=== PATIENT | female | born 1955 | race Caucasian/White ===

== ENCOUNTER 2020-10-17 16:19 | Outpatient (REF) | payer OTHER, SELFPAY ==
[2020-10-17 18:02] LABS: Glucose Urine UA NEG (NEG); Leukocyte Esterase Urine 1+ (NEG); Nitrite Urine NEG (NEG); UACC Culture Trigger YES; Urine Blood 2+ (NEG); Urine Ketones NEG (NEG); Urine Protein NEG (NEG-TRACE)
[2020-10-17 18:12] LABS: Appearance Urine CLEAR; Color Urine STRAW
[2020-10-17 19:04] LABS: Bacteria Urine TRACE /LPF; Squamous Epithelial Cell Urine 1+ /LPF
== END 2020-10-17 16:20 | disposition home or self-care (01) ==
LOC: HO.LAB 16:19
PROVIDERS: PCP Internal Medicine; Visit Provider Internal Medicine
DX: R30.0 Dysuria (principal)
CPT/HCPCS: 81001; 81003; 87086

== ENCOUNTER 2021-02-21 09:02 | Outpatient (REF) | payer OTHER, SELFPAY ==
[2021-02-21 09:23] LABS: MANUAL DIFF FLAG NO
[2021-02-21 10:19] LABS: Basophils Absolute Auto 0.1 X10*3/uL (0.0-0.2); Basophils Percent Auto 0.7 % (0-2); Eosinophils Absolute Auto 0.2 X10*3/uL (0.0-0.4); Eosinophils Percent Auto 2.8 % (0-4); Hematocrit 44.7 % (37.0-47.0); Hemoglobin 14.7 g/dl (12.0-16.0); Imm Gran Abs Auto 0.03 X10*3/uL (0.00-0.03); Imm Gran Pct Auto 0.4 % (0.0-0.4); Lymphocytes Absolute Auto 2.4 X10*3/uL (1.2-4.9); Lymphocytes Percent Auto 31.7 % (20-40); Mean Corpuscular HGB Conc 32.9 g/dl (31.0-35.0); Mean Corpuscular Hemoglobin 29.8 pg (27.0-33.0); Mean Corpuscular Volume 90.7 fL (80.0-98.0); Mean Platelet Volume 9.7 fL (9.4-12.3); Monocytes Absolute Auto 0.6 X10*3/uL (0.1-1.2); Monocytes Percent Auto 7.8 % (2-11); Neutrophils Absolute Auto 4.2 x10*3/uL (2.0-8.3); Neutrophils Percent Auto 56.6 % (45-73); Platelet Count 288 X10*3/uL (160-400); Red Blood Count 4.93 X10*6/uL (4.20-5.50); Red Cell Distribution Width 13.2 % (11.0-16.0); White Blood Count 7.5 X10*3/uL (4.8-10.8)
[2021-02-21 10:28] LABS: Estimated Average Glucose 143 mg/dL; Hemoglobin A1c % 6.6 %
[2021-02-21 11:02] LABS: Alanine Aminotransferase 19 U/L (0-31); Albumin Level 4.2 g/dL (3.5-5.0); Alkaline Phosphatase 134 U/L (39-117); Anion Gap 11 (12-20); Aspartate Amino Transferase 16 U/L (5-31); Bilirubin Total 0.7 mg/dL (0.0-1.0); Blood Urea Nitrogen 11 mg/dL (9-16); Carbon Dioxide 28 mmol/L (22-29); Chloride 106 mmol/L (96-108); Cholesterol 253 mg/dL; Estimated Glomerular Filt Rate > 60; Glucose Random 139 mg/dL (60-115); HDL Cholesterol 36 mg/dL; LDL Cholesterol Calculated 164 mg/dl; Potassium 4.6 mmol/L (3.3-5.1); Sodium 140 mmol/L (135-145); Total Protein 6.5 g/dL (6.5-8.0); Triglycerides 267 mg/dL
[2021-02-21 11:04] LABS: Creatinine Urine 199.46 mg/dL; Microalbum/Creatinine Ratio Ur 68.1 ug/mg cr
[2021-02-21 11:06] LABS: Free T4 (Free Thyroxine) 1.07 ng/dL (0.71-1.85); Thyroid Stimulating Hormone 2.07 uIU/mL (0.32-4.0)
[2021-02-21 11:43] LABS: Folate 11.4 ng/mL (> or = 4.0); Vitamin B12 218 pg/mL (200-900)
== END 2021-02-21 09:03 | disposition home or self-care (01) ==
LOC: HO.LAB 09:02
PROVIDERS: PCP Internal Medicine; Visit Provider Internal Medicine
DX: E78.00 Pure hypercholesterolemia, unspecified (principal); E03.9 Hypothyroidism, unspecified; E11.65 Type 2 diabetes mellitus with hyperglycemia
CPT/HCPCS: 36415; 80053; 80061; 82043; 82306; 82607; 82746; 83036; 84439; 84443; 85025

== ENCOUNTER 2021-04-04 08:38 | Outpatient (REF) | payer OTHER, SELFPAY ==
--- NOTE | ~2021-04-04 | MM_ITS ---
EXAMINATION: BONE DENSITOMETRY CLINICAL INDICATION: Osteopenia. COMPARISON: Baseline BD dated 03/08/2009. TECHNIQUE: Using a [employer] DXA System (software version: 13.1) manufactured by [email or web address], dual-energy x-ray absorptiometry was performed of the lumbar spine and left hip. The images are of good technical quality. Summary results are attached. FINDINGS: AP SPINE L1-L4: Current: BMD 0.847 g/cm2, Z-score -2.2, T-score -2.8, osteoporosis, 9.8% decrease from baseline (<5% change is not significant). Baseline: BMD 0.939 g/cm2. LEFT FEMUR, NECK: Current: BMD 0.637 g/cm2, Z-score -2.1, T-score -2.9, osteoporosis. Baseline: BMD 0.765 g/cm2. LEFT FEMUR, TOTAL: Current: BMD 0.728 g/cm2, Z-score -1.8, T-score -2.2, osteopenia, 15.1% decrease from baseline (<5% change is not significant). Baseline: BMD 0.857 g/cm2. IDENTIFIED RISK FACTORS: Menopause, right oophorectomy. HISTORY OF FRACTURE: None listed. MEDICATIONS: Vitamin D. MM/XR DEXA axial skeleton IMPRESSION: 1. DIAGNOSIS: Osteoporosis based on the lowest T-score value of -2.9 in the femoral neck applying World Health Organization criteria. 2. 10 10-YEAR FRACTURE RISK PREDICTION, FRAX: According to the guidelines, FRAX calculation should only be performed on patients in the osteopenia bone density category. 3. Treatment Recommendations: NOF guidelines recommend consideration for treatment in postmenopausal women and men age 50 and older presenting with the following: -A hip or vertebral (clinical or morphometric) fracture. -T-score less than or equal to -2.5 at the femoral neck or spine after appropriate evaluation to exclude secondary causes. -Low bone mass at the hip or spine and a 10-year fracture probability by FRAX of greater than or equal to 3% for hip fracture or greater than or equal to 20% for major osteoporotic fracture based on the [place] adapted WHO algorithm. 4. Other Recommendations: All treatment decisions require clinical judgment and consideration of individual patient factors, including patient preferences, comorbidities, previous drug use, risk factors not captured in the FRAX model (e.g. frailty, falls, vitamin D deficiency, increased bone turnover, interval significant decline in bone density) and possible under or overestimation of fracture risk by FRAX. Additional medical evaluation for secondary cause of low bone mineral density may be appropriate. FUTURE SCAN RECOMMENDATION: People with diagnosed cases of osteoporosis or at high risk for fracture should have regular bone mineral density tests. For patients eligible for Medicare, routine testing is allowed once every 2 years. The testing frequency can be increased to one year for patients who have rapidly progressing disease, those who are receiving or discontinuing medical therapy to restore bone mass, or have additional risk factors.
--- NOTE | ~2021-04-04 | MM_ITS ---
EXAMINATION: MM SCREENING DIGITAL BREAST TOMOSYNTHESIS, BILATERAL CLINICAL INFORMATION: Screening. Asymptomatic. The lifetime risk of breast cancer based on the Tyrer-Cuzick Model is 6%. COMPARISON: Mammography: 11/06/2018, 10/21/2017, 10/07/2016 TECHNIQUE: Digital breast tomosynthesis is performed in both the craniocaudal and mediolateral oblique views along with computer-aided detection (CAD). Synthesized 2D images are generated from the tomosynthesis. Additional bilateral MLO views are provided. FINDINGS: There are scattered areas of fibroglandular density (ACR BI-RADS breast composition Category b). There are no significant masses, abnormal calcifications, or other abnormalities. Scattered bilateral nodularity is similar to prior study. There is no developing density or interval architectural abnormality. The left breast again shows punctate calcifications central upper breast similar in number and distribution to prior exams. The axilla and skin contours are unremarkable. MM/MM tomosynthesis screening BI IMPRESSION: There are no significant changes from prior exams. ASSESSMENT: BI-RADS 2: Benign RECOMMENDATION: Routine annual mammography screening. This patient's information was entered into a reminder system with a target due date for their next mammogram.
== END 2021-04-04 08:39 | disposition home or self-care (01) ==
LOC: HO.MAMMO 08:38
PROVIDERS: PCP Internal Medicine; Visit Provider Internal Medicine
DX: Z12.31 Encounter for screening mammogram for malignant neoplasm of breast (principal); Z13.820 Encounter for screening for osteoporosis; M81.0 Age-related osteoporosis without current pathological fracture; M85.88 Other specified disorders of bone density and structure, other site; Z78.0 Asymptomatic menopausal state; Z79.899 Other long term (current) drug therapy
CPT/HCPCS: 77063; 77067; 77080

== ENCOUNTER 2021-07-02 09:55 | Outpatient (REF) | payer OTHER, SELFPAY ==
[2021-07-02 10:12] VITALS: BP 161/71; PULSE 88; RESP 20; TEMP 36.6; O2SAT 97
[2021-07-02 10:13] VITALS: BMI 40.2
== END 2021-07-02 09:56 | disposition home or self-care (01) ==
LOC: HO.MS 09:55
PROVIDERS: PCP Internal Medicine; Visit Provider Ophthalmology
PROC: (CPT 66821; principal; 2021-07-02 11:10)
DX: H26.492 Other secondary cataract, left eye (principal)
CPT/HCPCS: 66821

== ENCOUNTER 2021-09-18 07:58 | Outpatient (REF) | payer OTHER, SELFPAY ==
[2021-09-18 09:10] LABS: Estimated Average Glucose 192 mg/dL; Hemoglobin A1c % 8.3 %
[2021-09-18 09:22] LABS: Alanine Aminotransferase 13 U/L (0-31); Albumin Level 4.1 g/dL (3.5-5.0); Alkaline Phosphatase 147 U/L (39-117); Anion Gap 9 (12-20); Aspartate Amino Transferase 12 U/L (5-31); Bilirubin Total 0.8 mg/dL (0.0-1.0); Blood Urea Nitrogen 9 mg/dL (9-16); Calcium 9.3 mg/dL (8.4-10.2); Carbon Dioxide 28 mmol/L (22-29); Chloride 107 mmol/L (96-108); Cholesterol 164 mg/dL; Estimated Glomerular Filt Rate > 60; Glucose Random 215 mg/dL (60-115); HDL Cholesterol 34 mg/dL; LDL Cholesterol Calculated 87 mg/dl; Potassium 4.4 mmol/L (3.3-5.1); Sodium 140 mmol/L (135-145); Total Protein 6.2 g/dL (6.5-8.0); Triglycerides 216 mg/dL
[2021-09-18 10:30] LABS: Creatinine Urine 189.25 mg/dL
== END 2021-09-18 07:59 | disposition home or self-care (01) ==
LOC: HO.LAB 07:58
PROVIDERS: PCP Internal Medicine; Visit Provider Internal Medicine
DX: E11.65 Type 2 diabetes mellitus with hyperglycemia (principal); E78.00 Pure hypercholesterolemia, unspecified
CPT/HCPCS: 36415; 80053; 80061; 83036

== ENCOUNTER 2022-04-08 09:06 | Outpatient (REF) | payer OTHER, SELFPAY ==
--- NOTE | ~2022-04-08 | MM_ITS ---
EXAMINATION: MM SCREENING DIGITAL BREAST TOMOSYNTHESIS, BILATERAL CLINICAL INFORMATION: Screening. Asymptomatic. The lifetime risk of breast cancer based on the Tyrer-Cuzick Model is 6%. COMPARISON: Mammography: 04/04/2021, 11/06/2018, 10/21/2017, 10/07/2016 TECHNIQUE: Digital breast tomosynthesis is performed in both the craniocaudal and mediolateral oblique views along with computer-aided detection (CAD). Synthesized 2D images are generated from the tomosynthesis. FINDINGS: There are scattered areas of fibroglandular density (ACR BI-RADS breast composition Category b). No interval mass or architectural abnormality or developing density. Parenchymal pattern is similar to prior studies. There is small stable circumscribed nodule anterior central right breast. The punctate calcifications central and upper outer left breast similar in number and distribution to prior studies. The axilla and skin contours are unremarkable. MM/MM tomosynthesis screening BI IMPRESSION: No mammographic evidence of malignancy. ASSESSMENT: BI-RADS 2: Benign RECOMMENDATION: Routine annual mammography screening. This patient's information was entered into a reminder system with a target due date for their next mammogram.
== END 2022-04-08 09:07 | disposition home or self-care (01) ==
LOC: HO.MAMMO 09:06
PROVIDERS: PCP Internal Medicine; Visit Provider Internal Medicine
DX: Z12.31 Encounter for screening mammogram for malignant neoplasm of breast (principal)
CPT/HCPCS: 77063; 77067

== ENCOUNTER 2022-05-16 08:23 | Outpatient (REF) | payer OTHER, SELFPAY ==
[2022-05-16 09:37] LABS: Creatinine Urine 144.85 mg/dL; Microalbum/Creatinine Ratio Ur 7.5 ug/mg cr
[2022-05-16 09:42] LABS: Alanine Aminotransferase 16 U/L (0-31); Albumin Level 4.3 g/dL (3.5-5.0); Alkaline Phosphatase 139 U/L (39-117); Anion Gap 14 (12-20); Aspartate Amino Transferase 15 U/L (5-31); Blood Urea Nitrogen 12 mg/dL (9-16); Calcium 9.5 mg/dL (8.4-10.2); Carbon Dioxide 28 mmol/L (22-29); Chloride 106 mmol/L (96-108); Cholesterol 173 mg/dL; Estimated Glomerular Filt Rate > 60; Glucose Fasting 186 mg/dL (60-99); HDL Cholesterol 39 mg/dL; LDL Cholesterol Calculated 92 mg/dl; Potassium 4.7 mmol/L (3.3-5.1); Sodium 143 mmol/L (135-145); Total Protein 6.2 g/dL (6.5-8.0); Triglycerides 212 mg/dL
[2022-05-16 09:59] LABS: TSH reflex Free T4 3.16 uIU/mL (0.32-4.0); Vitamin D 25-OH Total 21.5 ng/mL (>30)
== END 2022-05-16 08:24 | disposition home or self-care (01) ==
LOC: HO.LAB 08:23
PROVIDERS: PCP Internal Medicine; Visit Provider Nurse Practitioner Family
DX: E11.65 Type 2 diabetes mellitus with hyperglycemia (principal); E03.9 Hypothyroidism, unspecified; E78.00 Pure hypercholesterolemia, unspecified; E55.9 Vitamin D deficiency, unspecified
CPT/HCPCS: 36415; 80053; 80061; 82043; 82306; 84443

== ENCOUNTER 2022-10-25 15:37 | Outpatient (AMB) | payer OTHER, SELFPAY ==
--- NOTE | 2022-10-25 15:42 | MHC.OFFVIS ---
Intake Vital Signs 10/25/22 15:44 Height 5 ft Weight 207 lb BMI 40.4 BP 158/79 H Blood Pressure Location Lt brachial Position Sitting Pulse 80 Intake Visit Reasons: Gastroesophageal reflux disease (GERD) Intake Note: Nora presents in office as a new.patient for a GERD. PT CC: pt reports having GERD, Bloating , abdominal pain , trouble swallowing food and liquids pt denies any other GI Issues Rvda Master Certified Rv Technician Required: No Accompanied by: Daughter Allergies ciprofloxacin [From CIPRO] Allergy (Severe, Verified 10/25/22 15:43) SWELLING Penicillins [PENICILLINS] Allergy (Severe, Verified 10/25/22 15:43) SWELLING latex [LATEX] Allergy (Intermediate, Verified 10/25/22 15:43) RASH simvastatin [SIMVASTATIN] Allergy (Intermediate, Verified 10/25/22 15:43) HEADACHE aspirin Allergy (Unknown, Verified 10/25/22 15:43) 'tastes blood metformin Allergy (Unknown, Verified 10/25/22 15:43) diarrhea penicillin V Allergy (Unknown, Verified 10/25/22 15:43) swelling pravastatin [Pravachol] Allergy (Unknown, Verified 10/25/22 15:43) Unknown tacrolimus Allergy (Unknown, Verified 10/25/22 15:43) Rash atorvastatin [From LIPITOR] Adverse Reaction (Intermediate, Verified 10/25/22 15:43) HEADACHE HPI Gastroesophageal reflux disease (GERD) HPI Details 66-year-old female with past medical history of obesity, GERD, osteoporosis, diabetic neuropathy, eczema, bladder tumor, diabetes, pulmonary nodule, hypercholesteremia, COPD, hypothyroidism is here today for initial consultation. Patient is here reporting multiple GI complaints. Patient reports to have postprandial dyspepsia with occasional dysphagia without odynophagia. Patient reports dysphagia with solids and liquids. Patient denies any nausea or vomiting. Patient reports postprandial abdominal bloating. Patient denies diarrhea, constipation. Patient denies melena, hematochezia, unintentional weight loss or ribbon like stools. Patient also reports to have frequent shortness of breath with minimal exertion. Denies any chest pain. Denies syncope, presyncope. [facility] Medical History Carpal tunnel syndrome COPD (chronic obstructive pulmonary disease) Hypercholesterolemia Hypothyroid Obesity (BMI 30-39.9) Obstruction of kidney Obstructive sleep apnea Osteopenia Pulmonary nodule Renal calculus Type 2 diabetes mellitus with hyperglycemia Surgical History History of bladder surgery History of cataract surgery History of right oophorectomy History of tonsillectomy History of tubal ligation S/P cystoscopy with ureteral stent placement Family History Father CVD (cardiovascular disease) Mother Diabetes Hypertension Heart failure Social History Housing: Apartment Alcohol intake: never Patient Tobacco Use Status: Former Tobacco user Tobacco use type: Cigarette e-Cigarette/Vaping Use: Never Used Second Hand Smoke Exposure: No Current occupational status: disabled Cognitive needs: No Hearing needs: No Vision needs: No Review of Systems Const Denies weight gain and Denies weight loss ENT Reports no additional complaints, Reports dysphagia and Denies odynophagia Card Reports no additional complaints Resp Reports no additional complaints GI Denies abdominal pain, Denies belching, Denies melena, Reports bloating, Denies change in bowel habits, Reports dysphagia, Denies excessive flatus, Reports dyspepsia, Reports heartburn, Denies diarrhea, Denies loose stools, Denies nausea, Denies odynophagia and Denies vomiting Reports no additional complaints Musc Reports no additional complaints Neuro Reports no additional complaints Psych Reports no additional complaints Endo Reports no additional complaints Physical Exam Vital Signs: Last Vital Signs Pulse 80 10/25/22 15:44 BP 158/79 H 10/25/22 15:44 BMI result Body Mass Index 40.4 Const General: healthy appearing, no acute distress and well developed Nutritional Appearance: obese Orientation/consciousness: patient oriented x3 HEENT Head: Yes normal to inspection, Yes normocephalic and Yes atraumatic Face and sinus: Yes normal facial exam Mouth: Normal oral and palatal mucosa present Throat: Yes posterior oropharynx normal, Yes tonsils normal and Yes uvula midline Eyes General: appearance normal, both eyes and all related structures Neck Neck: Yes normal visual inspection, Yes full ROM and Yes trachea midline Thyroid: Thyroid normal Resp Effort & Inspection: normal respiratory effort, able to speak in complete sentences, no tracheal deviation and symmetric chest movement Auscultation: clear to auscultation bilaterally Cardio Rate: regular rate Heart sounds: S1 normal heart sound present and S2 normal heart sound present GI Inspection: Yes normal to inspection, No distended and Yes obesity Palpation (GI): Soft to palpation, not firm, nontender and No hepatosplenomegaly present Auscultation: normal bowel sounds General: Yes no CVA tenderness Back/Spine/Pelvis Back: no CVA tenderness Skin General skin exam: elasticity normal, turgor normal and dry skin Neuro General: patient oriented x3 Psych Appearance: grossly normal Mental Status: mental status grossly normal Speech and movement: Normal speech and movement present Affect: normal affect Assessment & Plan Assessment & Plan (1) GERD (gastroesophageal reflux disease): Code(s): K21.9 - Gastro-esophageal reflux disease without esophagitis Qualifiers: Esophagitis presence: esophagitis presence not specified Qualified Code(s): K21.9 - Gastro-esophageal reflux disease without esophagitis Plan: Patient will start taking pantoprazole in the morning and famotidine bedtime. Discussed with patient avoiding dietary triggers and late night snacking. Staying upright for minimal 3 hours after meals discussed with patient. (2) Postprandial abdominal bloating: Code(s): R14.0 - Abdominal distension (gaseous) Plan: Occasional postprandial abdominal bloating. Will rule out pancreatic insufficiency. Patient also reports epigastric discomfort postprandially will check for H pylori, lipase, transglutaminase (3) Dysphagia: Code(s): R13.10 - Dysphagia, unspecified Qualifiers: Dysphagia type: unspecified Qualified Code(s): R13.10 - Dysphagia, unspecified Plan: Occasional dysphagia might be related to severe acid reflux. Patient will start taking pantoprazole in the morning and famotidine at bedtime. Discussed with patient avoiding dietary triggers late night snacking. Staying upright for minimal 3 hours after meals discussed with patient. Patient will return to the office in 4 weeks, sooner on as needed basis. Patient is agreeable to this plan and verbalizes understanding of instructions. She was given the opportunity to ask questions and all questions answered. Thank you for allowing me to participate in her care Orders: Orders Pancreatic Elastase-1 10/28/22 R10.9 - Unspecified abdominal pain Vitamin B12 and Folate 10/25/22 R19.7 - Diarrhea, unspecified Vitamin D 25-OH (D2 and D3) 10/25/22 E55.9 - Vitamin D deficiency, unspecified H pylori Ag Stool 10/28/22 K21.9 - Gastro-esophageal reflux disease without esophagitis Lipase 10/25/22 R10.9 - Unspecified abdominal pain TSH reflex Free T4 10/25/22 K59.00 - Constipation, unspecified Transglutaminase IgA 10/25/22 R10.9 - Unspecified abdominal pain Transglutaminase Ab IgG 10/25/22 R10.9 - Unspecified abdominal pain Referrals Pulmonary Medicine Referral J44.9 - Chronic obstructive pulmonary disease, unspecified Medications: New famotidine (Pepcid) 20 mg PO BEDTIME 30 tabs 3RF K21.9 - Gastro-esophageal reflux disease without esophagitis pantoprazole 20 mg PO DAILY 30 tabs 3RF Coding Level of Care Code New Pt Level 4 (05381) Diagnoses GERD (gastroesophageal reflux disease) K21.9 Esophagitis presence: esophagitis presence not specified Postprandial abdominal bloating R14.0 Dysphagia R13.10 Dysphagia type: unspecified Time Spent (min) 45 Comment 30 minutes spent with patient and additional 15 minutes spent reviewing her records
[2022-10-25 15:44] VITALS: BP 158/79; PULSE 80; BMI 40.4
== END 2022-10-25 16:20 | disposition home or self-care (01) ==
PROVIDERS: PCP Internal Medicine; Visit Provider Nurse Practitioner Family
DX: K21.9 Gastro-esophageal reflux disease without esophagitis (principal); R14.0 Abdominal distension (gaseous); R13.10 Dysphagia, unspecified
CPT/HCPCS: 99204

== ENCOUNTER 2022-10-25 15:37 | Outpatient (REF) | payer OTHER, SELFPAY ==
[2022-10-25 18:22] LABS: Lipase 21 U/L (8-78)
[2022-10-25 18:32] LABS: TSH reflex Free T4 3.17 uIU/mL (0.32-4.0)
[2022-10-25 18:55] LABS: Folate 12.8 ng/mL (> or = 4.0); Vitamin B12 205 pg/mL (200-900)
[2022-10-28 22:04] LABS: Transglutaminase Ab IgG <1.0 U/mL; Transglutaminase IgA <1.0 U/mL
[2022-10-31 13:09] LABS: Vitamin D 25-OH, D2 <4 ng/mL; Vitamin D 25-OH, D3 23 ng/mL; Vitamin D 25-OH, Total 23 ng/mL (30-100)
== END 2022-10-25 15:38 | disposition home or self-care (01) ==
LOC: HO.LAB 15:37
PROVIDERS: PCP Internal Medicine; Visit Provider Nurse Practitioner Family
DX: K21.9 Gastro-esophageal reflux disease without esophagitis (principal); K59.00 Constipation, unspecified; R10.9 Unspecified abdominal pain; R14.0 Abdominal distension (gaseous); R13.10 Dysphagia, unspecified; E11.40 Type 2 diabetes mellitus with diabetic neuropathy, unspecified; R19.7 Diarrhea, unspecified; E55.9 Vitamin D deficiency, unspecified
CPT/HCPCS: 36415; 82306; 82607; 82746; 83690; 84443; 86364; 99202

== ENCOUNTER 2022-10-28 09:45 | Outpatient (REF) | payer OTHER, SELFPAY ==
[2022-11-05 17:08] LABS: Pancreatic Elastase-1 >500 mcg/g
== END 2022-10-28 09:46 | disposition home or self-care (01) ==
LOC: HO.LNP 09:45
PROVIDERS: Visit Provider Nurse Practitioner Family
DX: R10.9 Unspecified abdominal pain (principal); K21.9 Gastro-esophageal reflux disease without esophagitis
CPT/HCPCS: 82656; 87338

== ENCOUNTER 2022-11-22 09:22 | Outpatient (AMB) | payer OTHER, SELFPAY ==
[2022-11-22 09:26] VITALS: BP 154/75; PULSE 86; BMI 40.0
--- NOTE | 2022-11-22 09:26 | A.OFFVIS_ITS ---
Intake Vital Signs 11/22/22 09:26 Height 5 ft Weight 204 lb 9.423 oz BMI 40.0 BP 154/75 H Blood Pressure Location Lt brachial Position Sitting Pulse 86 Intake Visit Reasons: 4 week follow up Intake Note: Nora presents in office as a est.patient for a f/u for Dysphagia PT CC: pt reports having abdominal pain , diarrhea, bloated pt denies any other GI Issues Heel Slicker Required: No Accompanied by: Self / Same As Patient Allergies ciprofloxacin [From CIPRO] Allergy (Severe, Verified 11/22/22 09:26) SWELLING Penicillins [PENICILLINS] Allergy (Severe, Verified 11/22/22 09:26) SWELLING latex [LATEX] Allergy (Intermediate, Verified 11/22/22 09:) RASH simvastatin [SIMVASTATIN] Allergy (Intermediate, Verified 11/22/22 09:) HEADACHE aspirin Allergy (Unknown, Verified 11/22/22 09:26) 'tastes blood metformin Allergy (Unknown, Verified 11/22/22 09:26) diarrhea penicillin V Allergy (Unknown, Verified 11/22/22 09:26) swelling pravastatin [Pravachol] Allergy (Unknown, Verified 11/22/22 09:26) Unknown tacrolimus Allergy (Unknown, Verified 11/22/22 09:26) Rash atorvastatin [From LIPITOR] Adverse Reaction (Intermediate, Verified 11/22/22 09:) HEADACHE HPI 4 week follow up HPI Details LAST VISIT: GERD (gastroesophageal reflux disease) Patient will start taking pantoprazole in the morning and famotidine bedtime. Discussed with patient avoiding dietary triggers and late night snacking. Staying upright for minimal 3 hours after meals discussed with patient. Postprandial abdominal bloating Occasional postprandial abdominal bloating. Will rule out pancreatic insufficiency. Patient also reports epigastric discomfort postprandially will check for H pylori, lipase, transglutaminase Dysphagia Occasional dysphagia might be related to severe acid reflux. Patient will start taking pantoprazole in the morning and famotidine at bedtime. Discussed with patient avoiding dietary triggers late night snacking. Staying upright for minimal 3 hours after meals discussed with patient. Patient will return to the office in 4 weeks, sooner on as needed basis. Patient is agreeable to this plan and verbalizes understanding of instructions. She was given the opportunity to ask questions and all questions answered. ? Thank you for allowing me to participate in her care Plan Orders Orders Pancreatic Elastase-1 10/28/22 R10.9 Vitamin B12 and Folate 10/25/22 R19.7 Vitamin D 25-OH (D2 and D3) 10/25/22 E55.9 H pylori Ag Stool 10/28/22 K21.9 Lipase 10/25/22 R10.9 TSH reflex Free T4 10/25/22 K59.00 Transglutaminase IgA 10/25/22 R10.9 Transglutaminase Ab IgG 10/25/22 R10.9 Referrals Pulmonary Medicine Referral J44.9 Medications New famotidine (Pepcid) 20 mg PO BEDTIME 30 tabs 3RF K21.9 pantoprazole 20 mg PO DAILY 30 tabs 3RF * TODAY'S VISIT Patient is here today for follow-up. Patient reports that since last time I have seen her she has been doing little better. Patient has less dyspepsia, denies any dysphagia or odynophagia. Patient is taking pantoprazole in the morning and famotidine at bedtime. Patient states the for the most part her symptoms of acid reflux are suppressed with that. However patient does report that she still gets bloated and feels like she does not move her bowels well. Patient reports that she will have postprandial loose stools often, however then no bowel movement for couple days. Patient denies melena, hematochezia, unintentional weight loss or ribbon like stools. Patient had colonoscopy in November of 2017 that showed tubular adenoma. Patient is due to go for colonoscopy and we will try to schedule her soon. Patient reports that she gets very bloated with almost anything that she eats. Patient denies any nausea or vomiting. Patient denies any other GI concerning symptoms [facility] Medical History Carpal tunnel syndrome COPD (chronic obstructive pulmonary disease) Hypercholesterolemia Hypothyroid Obesity (BMI 30-39.9) Obstruction of kidney Obstructive sleep apnea Osteopenia Pulmonary nodule Renal calculus Type 2 diabetes mellitus with hyperglycemia Surgical History History of bladder surgery History of cataract surgery History of right oophorectomy History of tonsillectomy History of tubal ligation S/P cystoscopy with ureteral stent placement Family History Father CVD (cardiovascular disease) Mother Diabetes Hypertension Heart failure Social History Housing: Apartment Alcohol intake: never Patient Tobacco Use Status: Former Tobacco user Tobacco use type: Cigarette e-Cigarette/Vaping Use: Never Used Second Hand Smoke Exposure: No Current occupational status: disabled Cognitive needs: No Hearing needs: No Vision needs: No Review of Systems Const Denies weight gain and Denies weight loss ENT Reports no additional complaints, Denies dysphagia and Denies odynophagia Card Reports no additional complaints Resp Reports no additional complaints GI Denies abdominal pain, Denies belching, Denies melena, Reports bloating, Reports constipation, Denies dysphagia, Denies excessive flatus, Reports dyspepsia (Occasional), Reports heartburn (Improved on medication), Denies diarrhea, Reports loose stools, Denies nausea, Denies odynophagia and Denies vomiting Reports no additional complaints Musc Reports no additional complaints Neuro Reports no additional complaints Psych Reports no additional complaints Endo Reports no additional complaints Physical Exam Vital Signs: Last Vital Signs Pulse 86 11/22/22 09:26 BP 154/75 H 11/22/22 09:26 BMI result Body Mass Index 40.0 Const General: healthy appearing, no acute distress and well developed Nutritional Appearance: obese Orientation/consciousness: patient oriented x3 HEENT Head: Yes normal to inspection, Yes normocephalic and Yes atraumatic Face and sinus: Yes normal facial exam Mouth: Normal oral and palatal mucosa present Throat: Yes posterior oropharynx normal, Yes tonsils normal and Yes uvula midline Eyes General: appearance normal, both eyes and all related structures Neck Neck: Yes normal visual inspection, Yes full ROM and Yes trachea midline Thyroid: Thyroid normal Resp Effort & Inspection: normal respiratory effort, able to speak in complete sentences, no tracheal deviation and symmetric chest movement Auscultation: clear to auscultation bilaterally Cardio Rate: regular rate Heart sounds: S1 normal heart sound present and S2 normal heart sound present GI Inspection: Yes normal to inspection, No distended and Yes obesity Palpation (GI): Soft to palpation, not firm, nontender and No hepatosplenomegaly present Auscultation: normal bowel sounds General: Yes no CVA tenderness Back/Spine/Pelvis Back: no CVA tenderness Skin General skin exam: elasticity normal, turgor normal and dry skin Neuro General: patient oriented x3 Psych Appearance: grossly normal Mental Status: mental status grossly normal Speech and movement: Normal speech and movement present Results Reviewed Results Reviewed: Laboratory Tests 10/25/22 10/25/22 10/25/22 16:37 16:37 16:37 Lipase 21 Vitamin B12 205 25-OH Vitamin D Total 23 L Folate 12.8 TSH 3.17 Stool Pancreat Elastase Tiss Transglutamin IgG Tiss Transglutamin IgA 10/25/22 10/28/22 16:37 06:35 Lipase Vitamin B12 25-OH Vitamin D Total Folate TSH Stool Pancreat Elastase >500 Tiss Transglutamin IgG <1.0 Tiss Transglutamin IgA <1.0 Assessment & Plan Assessment & Plan (1) GERD (gastroesophageal reflux disease): Code(s): K21.9 - Gastro-esophageal reflux disease without esophagitis Qualifiers: Esophagitis presence: esophagitis presence not specified Qualified Code(s): K21.9 - Gastro-esophageal reflux disease without esophagitis Plan: Continue pantoprazole in the morning and famotidine at bedtime. Discussed with patient avoiding dietary triggers and late night snacking. Staying upright for minimum 3 hours after meals discussed with patient patient will be sent for upper endoscopy when she goes for colonoscopy to rule out gastritis, esophagitis, duodenitis, gastric or peptic ulcers, Bolaños's, H pylori. (2) Screen for colon cancer: Code(s): Z12.11 - Encounter for screening for malignant neoplasm of colon Plan: Patient denies any issues with anesthesia in the past. Patient denies any cardiac or respiratory symptoms. History of COPD on corticosteroids. Please book colonoscopy and upper endoscopy for patient. Patient will return in 4 weeks to re-evaluate her. Patient currently is constipated will have patient start Senokot (3) Postprandial abdominal bloating: Code(s): R14.0 - Abdominal distension (gaseous) Plan: Patient reports postprandial abdominal bloating. Most likely related to food that she is eating. Occasional abdominal cramping most likely related to gas trapping. Patient is constipated (4) Constipation: Code(s): K59.00 - Constipation, unspecified Qualifiers: Constipation type: slow transit constipation Qualified Code(s): K59.01 - Slow transit constipation Plan: Patient was encouraged to up increase fluid intake and activity to promote better bowel motility. Patient will take Senokot 2 tablets every evening. Patient will return in 4 weeks, sooner on as needed basis. Patient is agreeable to this plan and verbalizes understanding of instructions. She was given the opportunity to ask questions and all questions answered. Thank you for allowing me to participate in her care Medications: New sennosides (Natural Senna Laxative) 17.2 mg (2 x 8.6 mg) PO BEDTIME 60 tabs 3RF constipation K59.00 - Constipation, unspecified bisacodyl (Dulcolax (bisacodyl)) take 2 tabs at noon the day before your colonoscopy 10 mg (2 x 5 mg) PO ONCE 1 day 2 tabs 0RF Z12.11 - Encounter for screening for malignant neoplasm of colon polyethylene glycol 3350 (Miralax) As directed by gastroenterology department at [facility] 238 grams PO ONCE 238 grams 0RF Z12.11 - Encounter for screening for malignant neoplasm of colon Coding Level of Care Code Est Pt Level 4 (58624) Diagnoses GERD (gastroesophageal reflux disease) K21.9 Esophagitis presence: esophagitis presence not specified Screen for colon cancer Z12.11 Postprandial abdominal bloating R14.0 Constipation K59.01 Constipation type: slow transit constipation Time Spent (min) 35 Comment 20 minutes spent with patient and additional 15 minutes spent reviewing her records
== END 2022-11-22 10:22 | disposition home or self-care (01) ==
PROVIDERS: PCP Internal Medicine; Visit Provider Nurse Practitioner Family
DX: K21.9 Gastro-esophageal reflux disease without esophagitis (principal); Z12.11 Encounter for screening for malignant neoplasm of colon; R14.0 Abdominal distension (gaseous); K59.01 Slow transit constipation
CPT/HCPCS: 99214

== ENCOUNTER → 2022-11-22 09:22 | Outpatient (BNVA) | payer OTHER, SELFPAY | PROVIDERS: PCP Internal Medicine; Visit Provider Nurse Practitioner Family | DX: Z12.11 Encounter for screening for malignant neoplasm of colon (principal); K21.9 Gastro-esophageal reflux disease without esophagitis; K59.01 Slow transit constipation; R14.0 Abdominal distension (gaseous) | CPT/HCPCS: 99212 ==

== ENCOUNTER 2022-11-27 09:36 | Outpatient (AMB) | payer OTHER, SELFPAY ==
[2022-11-27 09:39] VITALS: BP 130/72; PULSE 79; O2SAT 96; BMI 39.6
--- NOTE | 2022-11-27 09:39 | MHC.PC.OV ---
Vital Signs 11/27/22 09:39 Height 5 ft Weight 203 lb BMI 39.6 BP 130/72 Blood Pressure Location Lt brachial Position Sitting Pulse 79 Pulse Source Pulse Oximeter Pulse Oximetry (%) 96 Oxygen Delivery Method Room Air Intake Visit Reasons: 6m F/U Allergies ciprofloxacin [From CIPRO] Allergy (Severe, Verified 11/27/22 09:39) SWELLING Penicillins [PENICILLINS] Allergy (Severe, Verified 11/27/22 09:39) SWELLING latex [LATEX] Allergy (Intermediate, Verified 11/27/22 09:39) RASH simvastatin [SIMVASTATIN] Allergy (Intermediate, Verified 11/27/22 09:39) HEADACHE aspirin Allergy (Unknown, Verified 11/27/22 09:39) 'tastes blood metformin Allergy (Unknown, Verified 11/27/22 09:39) diarrhea penicillin V Allergy (Unknown, Verified 11/27/22 09:39) swelling pravastatin [Pravachol] Allergy (Unknown, Verified 11/27/22 09:39) Unknown tacrolimus Allergy (Unknown, Verified 11/27/22 09:39) Rash atorvastatin [From LIPITOR] Adverse Reaction (Intermediate, Verified 11/27/22 09:39) HEADACHE Medication List - Last Reconciled 11/27/22 by You Gallardo MD [large Depends (pull ups) As directed] albuterol sulfate 90 mcg/actuation (Ventolin HFA) 2 puffs inhalation Q4-6H PRN emgggyc-bearyywbintwb-emauucva 250-250-65 mg (Excedrin Migraine) 1 tab PO Q4-6H PRN bisacodyl (Dulcolax (bisacodyl)) 10 mg (2 x 5 mg) PO ONCE 1 day blood sugar diagnostic (FreeStyle Lite Strips) As directed check the BS QD [BODY WIPES As directed] budesonide-formoterol 80-4.5 mcg/actuation (Symbicort) 1 inh inhalation BID PRN cholecalciferol (vitamin D3) 50 mcg PO DAILY 90 days disposable gloves (Disposable Latex-Free Gloves) large dupilumab (Dupixent) 300 mg subcut Q2W empagliflozin (Jardiance) 10 mg PO DAILY famotidine (Pepcid) 20 mg PO BEDTIME glimepiride 2 mg PO DAILY [incontinence wipes As directed] [Large gloves As directed] levothyroxine 88 mcg PO DAILY loratadine (Allergy Relief (loratadine)) 10 mg PO DAILY multivitamin 1 tab PO DAILY oxybutynin chloride ER 5 mg PO DAILY pantoprazole 20 mg PO DAILY polyethylene glycol 3350 (Miralax) 238 grams PO ONCE rosuvastatin 5 mg PO DAILY sennosides (Natural Senna Laxative) 17.2 mg (2 x 8.6 mg) PO BEDTIME Tobacco use date assessed: 05/23/22 Fall risk assessment: No Falls in past year Last assessed Fall Risk: 11/27/22 Dental Screening Dental Screen Date: 11/27/22 Did you have a dental visit in the last 12 months?: No Did you have a dental problem in the last 6 months where you did not have access to dental care?: No Was dental information given to patient?: No HPI 6m F/U HPI Details 66-year-old obese female with diabetes mellitus hypercholesterolemia COPD hypothyroidism GERD osteoporosis urge incontinence coming in for follow-up. Last seen in May 2022. Colonoscopy having had tubular adenoma in 2017 osteoporosis up-to-date mammograms up-to-date.. Review of the notes has met with the commercial construction estimator for colonoscopy November 2022. Patient [facility] Medical History Carpal tunnel syndrome COPD (chronic obstructive pulmonary disease) Hypercholesterolemia Hypothyroid Obesity (BMI 30-39.9) Obstruction of kidney Obstructive sleep apnea Osteopenia Pulmonary nodule Renal calculus Type 2 diabetes mellitus with hyperglycemia Surgical History History of bladder surgery History of cataract surgery History of right oophorectomy History of tonsillectomy History of tubal ligation S/P cystoscopy with ureteral stent placement Family History Father CVD (cardiovascular disease) Mother Diabetes Hypertension Heart failure Social History Housing: Apartment Alcohol intake: never Patient Tobacco Use Status: Former Tobacco user Tobacco use type: Cigarette e-Cigarette/Vaping Use: Never Used Second Hand Smoke Exposure: No Current occupational status: disabled Cognitive needs: No Hearing needs: No Vision needs: No Questionnaire PHQ-9 Over the last 2 weeks, how often have you been bothered by any of the following problems? 1. Little interest or pleasure in doing things: not at all 2. Feeling down, depressed, or hopeless: not at all 3. Trouble falling or staying asleep, or sleeping too much: not at all 4. Feeling tired or having little energy: not at all 5. Poor appetite or overeating: not at all 6. Feeling bad about yourself - or that you are a failure or have let yourself or your family down: not at all 7. Trouble concentrating on things, such as reading the newspaper or watching television: not at all 8. Moving or speaking so slowly that other people could have noticed. Or the opposite - being so fidgety or restless that you have been moving around a lot more than usual: not at all 9. Thoughts that you would be better off or of hurting yourself in some way: not at all Total score: 0 Depression Screening Interpretation: Negative 64011 - PHQ-9 Billing: Yes Source: Developed by Drs. Jeromy Miller, Kristin Vargas, Chato Wild and colleagues, with an educational angelica from [employer]. Thrive Questionnaire Date Thrive assessed: 05/23/22 AUDIT C Alcohol Use Questionnaire (AUDIT-C) 1. How often do you have a drink containing alcohol?: Monthly or less 2. How many drinks containing alcohol do you have on a typical day when you are drinking?: 1 or 2 3. How often do you have six or more drinks on one occasion?: Never Total Score: 1 Score Reviewed/Action Taken: No NATIVIDAD-7 AMB Questionnaire NATIVIDAD-7 Date NATIVIDAD - 7 assessed: 05/23/22 Source: Developed by Drs. Jeromy Miller, Chato Nagy and colleagues, with an educational angelica from [employer]. Physical exam (Primary Care) Vital Signs: Last Vital Signs Pulse 79 11/27/22 09:39 BP 130/72 11/27/22 09:39 Pulse Ox 96 11/27/22 09:39 Oxygen Delivery Method Room Air 11/27/22 09:39 BMI result Body Mass Index 39.6 Tobacco/Smoking Status: Tobacco use Status Tobacco use date assessed 05/23/22 11/27/22 09:40 Patient Tobacco Use Status Former Tobacco user 11/27/22 09:40 Tobacco use type Cigarette 11/27/22 09:40 e-Cigarette/Vaping Use Never Used 11/27/22 09:40 PHQ-9: PHQ-9 Score PHQ-9: Total score 0 11/27/22 09:51 Depression Screening Interpretation: Negative Thrive Assessment: Date of Thrive Assessment Date Thrive assessed 05/23/22 11/27/22 09:40 Const General: alert; No acute distress Eyes Conjunctivae: conjunctivae normal Resp Auscultation: clear to auscultation bilaterally Cardio Rate: regular rate Rhythm: regular rhythm GI Inspection: Yes normal to inspection Extrem General: Yes normal to inspection and No edema Results AMB Hemoglobin A1c AMB Hemoglobin A1c 6.7 % Last Edit by Sally Franco CMA on 11/27/22 09:52 Results Reviewed Results Reviewed: Laboratory Last Values Hgb A1c (Clinic) 6.7 % (4.0-6.0) H 11/27/22 09:40 Assessment and Plan Assessment & Plan (1) Type 2 diabetes mellitus with hyperglycemia: Comment: Dr. Barfield Code(s): E11.65 - Type 2 diabetes mellitus with hyperglycemia Plan: Decrease the amount of carbohydrate intake, pasta, bread, rice and potatoes are all sugar and that is aside from all the sweet stuff, remember that fruits are good but they are Sweet also. Hemoglobin A1c goal of less than 7.0 patient is presently taking glimepiride 2 mg once a day. DECLIN new med despite high sugars. (2) Hypercholesterolemia: Code(s): E78.00 - Pure hypercholesterolemia, unspecified Plan: Avoid fried foods, chicken skin, eggs, butter margarine, pastries and meat. Be it pork or beef they have a lot of cholesterol LDL goal of less than 100 patient is taking rosuvastatin 5 mg once a day. 04/2022 last blood (3) COPD (chronic obstructive pulmonary disease): Comment: March 2017 PFT Code(s): J44.9 - Chronic obstructive pulmonary disease, unspecified Plan: April last blood work continue with a inhaler albuterol and Symbicort. Scheduled to see the Pulmonary. (4) Obesity (BMI 30-39.9): Code(s): E66.9 - Obesity, unspecified Plan: Diet and exercise (5) Hypothyroid: Code(s): E03.9 - Hypothyroidism, unspecified Plan: Continue with thyroid medication (6) GERD (gastroesophageal reflux disease): Code(s): K21.9 - Gastro-esophageal reflux disease without esophagitis Qualifiers: Esophagitis presence: esophagitis presence not specified Qualified Code(s): K21.9 - Gastro-esophageal reflux disease without esophagitis Plan: Avoid the foods that causes that usually spicy foods, tomato products, juices, coffee, soda and foods that your sensitive to. After eating do not lie down, allow 3-4 hours before in lie down. And keep the head of bed above 30 degrees to avoid the acid from going up. On pantoprazole 20 mg once a day Orders: Orders Vitamin B12 and Folate 4 Months E11.65 - Type 2 diabetes mellitus with hyperglycemia Comprehensive Met. Panel 4 Months E11.65 - Type 2 diabetes mellitus with hyperglycemia Hemoglobin A1c 4 Months E11.65 - Type 2 diabetes mellitus with hyperglycemia Lipid Panel 4 Months E11.65 - Type 2 diabetes mellitus with hyperglycemia, E78.00 - Pure hypercholesterolemia, unspecified Free T4 (Free Thyroxine) 4 Months E11.65 - Type 2 diabetes mellitus with hyperglycemia Thyroid Stimulating Hormone 4 Months E11.65 - Type 2 diabetes mellitus with hyperglycemia Vitamin D 25-OH Total 4 Months E11.65 - Type 2 diabetes mellitus with hyperglycemia Creatinine Urine 4 Months E11.65 - Type 2 diabetes mellitus with hyperglycemia Complete Blood Count Auto Diff 4 Months E11.65 - Type 2 diabetes mellitus with hyperglycemia AMB Hemoglobin A1c Today Z13.9 - Encounter for screening, unspecified Medications: New empagliflozin (Jardiance) 10 mg PO DAILY 30 tabs 4RF E11.65 - Type 2 diabetes mellitus with hyperglycemia Coding Level of Care Code Est Pt Level 4 (78442) Diagnoses Type 2 diabetes mellitus with hyperglycemia E11.65 Hypercholesterolemia E78.00 COPD (chronic obstructive pulmonary disease) J44.9 Obesity (BMI 30-39.9) E66.9 Hypothyroid E03.9 GERD (gastroesophageal reflux disease) K21.9 Esophagitis presence: esophagitis presence not specified
== END 2022-11-27 10:28 | disposition home or self-care (01) ==
PROVIDERS: Visit Provider Internal Medicine
DX: E11.65 Type 2 diabetes mellitus with hyperglycemia (principal); J44.9 Chronic obstructive pulmonary disease, unspecified; Z68.39 Body mass index [BMI] 39.0-39.9, adult; E78.00 Pure hypercholesterolemia, unspecified; E03.9 Hypothyroidism, unspecified; K21.9 Gastro-esophageal reflux disease without esophagitis; E66.9 Obesity, unspecified
CPT/HCPCS: 83036; 99214

== ENCOUNTER 2022-12-20 09:45 | Outpatient (AMB) | payer OTHER, SELFPAY ==
--- NOTE | 2022-12-20 09:57 | MHC.OFFVIS ---
Intake Vital Signs 12/20/22 10:02 Height 5 ft Weight 203 lb BMI 39.6 BP 116/60 Blood Pressure Location Lt brachial Position Sitting Pulse 80 Intake Visit Reasons: 4 week follow up Intake Note: Patient follow up for constipation and pre colonoscopy screening. Patient cc: abdominal bloating, acid reflex with burning sensation, and some constipation, she still have to push a lot for BM and some dyphagia on and off. Building Performance Consultant Required: No Accompanied by: Self / Same As Patient Allergies ciprofloxacin [From CIPRO] Allergy (Severe, Verified 12/20/22 09:56) SWELLING Penicillins [PENICILLINS] Allergy (Severe, Verified 12/20/22 09:56) SWELLING latex [LATEX] Allergy (Intermediate, Verified 12/20/22 09:56) RASH simvastatin [SIMVASTATIN] Allergy (Intermediate, Verified 12/20/22 09:56) HEADACHE aspirin Allergy (Unknown, Verified 12/20/22 09:56) 'tastes blood metformin Allergy (Unknown, Verified 12/20/22 09:56) diarrhea penicillin V Allergy (Unknown, Verified 12/20/22 09:56) swelling pravastatin [Pravachol] Allergy (Unknown, Verified 12/20/22 09:56) Unknown tacrolimus Allergy (Unknown, Verified 12/20/22 09:56) Rash atorvastatin [From LIPITOR] Adverse Reaction (Intermediate, Verified 12/20/22 09:56) HEADACHE HPI 4 week follow up HPI Details LAST VISIT GERD (gastroesophageal reflux disease) Continue pantoprazole in the morning and famotidine at bedtime. Discussed with patient avoiding dietary triggers and late night snacking. Staying upright for minimum 3 hours after meals discussed with patient patient will be sent for upper endoscopy when she goes for colonoscopy to rule out gastritis, esophagitis, duodenitis, gastric or peptic ulcers, Bolaños's, H pylori. Screen for colon cancer Patient denies any issues with anesthesia in the past. Patient denies any cardiac or respiratory symptoms. History of COPD on corticosteroids. Please book colonoscopy and upper endoscopy for patient. Patient will return in 4 weeks to re-evaluate her. Patient currently is constipated will have patient start Senokot Postprandial abdominal bloating Patient reports postprandial abdominal bloating. Most likely related to food that she is eating. Occasional abdominal cramping most likely related to gas trapping. Patient is constipated Constipation Patient was encouraged to up increase fluid intake and activity to promote better bowel motility. Patient will take Senokot 2 tablets every evening. Patient will return in 4 weeks, sooner on as needed basis. Patient is agreeable to this plan and verbalizes understanding of instructions. She was given the opportunity to ask questions and all questions answered. ? TODAY'S VISIT Patient is here today for follow-up. Patient reports that she has started taking Senokot, however she moves her bowels little better, however she continues to feel like she is not emptying her bowels completely. Patient reports that she has to push and is unable to have any normal bowel movement. Patient is also reporting to have occasional acid reflux specially when she is constipated. Patient is taking pantoprazole 20 mg in the morning and famotidine at bedtime. For the most part patient states that it helps, however she continues to occasionally have postprandial epigastric discomfort with burning as well as postprandial abdominal bloating. No change from previous assessment. Patient is ready to go for colonoscopy just needs to move her bowels better. [facility] Medical History (Updated 12/20/22 @ 19:45 by Dina Aviles, [facility]) Diarrhea Osteopenia Obstruction of kidney Obstructive sleep apnea Renal calculus Type 2 diabetes mellitus with hyperglycemia Pulmonary nodule Hypercholesterolemia COPD (chronic obstructive pulmonary disease) Obesity (BMI 30-39.9) Carpal tunnel syndrome Hypothyroid Surgical History S/P cystoscopy with ureteral stent placement History of cataract surgery History of bladder surgery History of tonsillectomy History of tubal ligation History of right oophorectomy Family History Father CVD (cardiovascular disease) Mother Diabetes Hypertension Heart failure Social History Housing: Apartment Alcohol intake: never Patient Tobacco Use Status: Former Tobacco user Tobacco use type: Cigarette e-Cigarette/Vaping Use: Never Used Second Hand Smoke Exposure: No Current occupational status: disabled Cognitive needs: No Hearing needs: No Vision needs: No Review of Systems Const Denies weight gain and Denies weight loss ENT Reports no additional complaints, Denies dysphagia and Denies odynophagia Card Reports no additional complaints Resp Reports no additional complaints GI Denies abdominal pain, Denies belching, Denies melena, Denies bloating, Denies change in bowel habits, Reports constipation, Denies dysphagia, Denies excessive flatus, Denies dyspepsia, Reports heartburn, Denies diarrhea, Denies loose stools, Denies nausea, Denies odynophagia and Denies vomiting Reports no additional complaints Musc Reports no additional complaints Neuro Reports no additional complaints Psych Reports no additional complaints Endo Reports no additional complaints Physical Exam Vital Signs: Last Vital Signs Pulse 80 12/20/22 10:02 BP 116/60 12/20/22 10:02 BMI result Body Mass Index 39.6 Const General: healthy appearing, no acute distress and well developed Nutritional Appearance: obese Orientation/consciousness: patient oriented x3 HEENT Head: Yes normal to inspection, Yes normocephalic and Yes atraumatic Face and sinus: Yes normal facial exam Mouth: Normal oral and palatal mucosa present Throat: Yes posterior oropharynx normal, Yes tonsils normal and Yes uvula midline Eyes General: appearance normal, both eyes and all related structures Neck Neck: Yes normal visual inspection, Yes full ROM and Yes trachea midline Thyroid: Thyroid normal Resp Effort & Inspection: normal respiratory effort, able to speak in complete sentences, no tracheal deviation and symmetric chest movement Auscultation: clear to auscultation bilaterally Cardio Rate: regular rate Heart sounds: S1 normal heart sound present and S2 normal heart sound present GI Inspection: Yes normal to inspection, No distended and Yes obesity Palpation (GI): Soft to palpation, not firm, nontender and No hepatosplenomegaly present Auscultation: normal bowel sounds General: Yes no CVA tenderness Back/Spine/Pelvis Back: no CVA tenderness Skin General skin exam: elasticity normal, turgor normal and dry skin Neuro General: patient oriented x3 Psych Appearance: grossly normal Mental Status: mental status grossly normal Speech and movement: Normal speech and movement present Assessment & Plan Assessment & Plan (1) GERD (gastroesophageal reflux disease): Code(s): K21.9 - Gastro-esophageal reflux disease without esophagitis Qualifiers: Esophagitis presence: esophagitis presence not specified Qualified Code(s): K21.9 - Gastro-esophageal reflux disease without esophagitis Plan: Continue pantoprazole in the morning and famotidine at bedtime. Patient was encouraged to avoid dietary triggers in late night snacking. Staying upright for minimum 3 hours after meals discussed with patient. (2) Screen for colon cancer: Code(s): Z12.11 - Encounter for screening for malignant neoplasm of colon Plan: Discussed with patient clear liquid diet day before the procedure. The importance of good bowel prep discussed with patient. Patient is will start Dulcolax tablets every day as well as MiraLax in the morning. No changes since last visit. Patient denies any cardiac or respiratory symptoms. (3) Postprandial abdominal bloating: Code(s): R14.0 - Abdominal distension (gaseous) Plan: Occasional postprandial abdominal bloating. Patient feels like it is related to her being constipated. Discussed with patient will FODMAP diet. Went over food recommended as well as food to avoid. (4) Constipation: Code(s): K59.00 - Constipation, unspecified Qualifiers: Constipation type: slow transit constipation Qualified Code(s): K59.01 - Slow transit constipation Plan: Patient will stop Senokot and start Dulcolax tablets every evening. Patient can also take MiraLax in the morning. I will see her after the procedure, sooner on as needed basis. Patient is agreeable to this plan and verbalizes understanding of instructions. She was given the opportunity to ask questions and all questions answered. Thank you for allowing me to participate in her care Medications: New polyethylene glycol 3350 (Miralax) 17 grams PO DAILY 510 grams 2RF bisacodyl (Dulcolax (bisacodyl)) 10 mg (2 x 5 mg) PO BEDTIME 180 tabs 4RF Discontinued sennosides (Natural Senna Laxative) Discontinued Reason: Doctor's Order 17.2 mg (2 x 8.6 mg) PO BEDTIME 60 tabs 3RF constipation K59.00 - Constipation, unspecified Coding Level of Care Code Est Pt Level 4 (88377) Diagnoses Gastroesophageal reflux disease, unspecified whether esophagitis present K21.9 Esophagitis presence: esophagitis presence not specified Screen for colon cancer Z12.11 Postprandial abdominal bloating R14.0 Slow transit constipation K59.01 Constipation type: slow transit constipation Time Spent (min) 35 Comment 20 minutes spent with patient and additional 15 minutes spent reviewing her records
[2022-12-20 10:02] VITALS: BP 116/60; PULSE 80; BMI 39.6
== END 2022-12-20 10:35 | disposition home or self-care (01) ==
PROVIDERS: PCP Internal Medicine; Visit Provider Nurse Practitioner Family
DX: K21.9 Gastro-esophageal reflux disease without esophagitis (principal); Z12.11 Encounter for screening for malignant neoplasm of colon; R14.0 Abdominal distension (gaseous); K59.01 Slow transit constipation
CPT/HCPCS: 99214

== ENCOUNTER → 2022-12-20 09:45 | Outpatient (BNVA) | payer OTHER, SELFPAY | PROVIDERS: PCP Internal Medicine; Visit Provider Nurse Practitioner Family | DX: Z12.11 Encounter for screening for malignant neoplasm of colon (principal); K21.9 Gastro-esophageal reflux disease without esophagitis; K59.01 Slow transit constipation; R14.0 Abdominal distension (gaseous) | CPT/HCPCS: 99212 ==

== ENCOUNTER 2023-01-16 09:18 | Day surgery (SDC) | payer OTHER, SELFPAY ==
[2023-01-13 16:54] VITALS: BMI 39.6
--- NOTE | 2023-01-15 10:34 | P.CONAN_ITS ---
Documented by User: Eugenia Laureano NP 01/15/23 10:35 HPI - Anesthesia Eval Consult details Narrative: 67yo F for Upper Endoscopy and Colonoscopy [facility] Active Problems Active Problems: All Active Problems (Updated 12/20/22 @ 19:45 by Dina Aviles [facility]) Hip pain (Acute) Low back pain (Acute) Low vitamin D level (Acute) Urge incontinence (Acute) Obesity (Acute) GERD (gastroesophageal reflux disease) (Acute) Osteoporosis (Acute) Diabetic nephropathy (Acute) Breast cancer screening by mammogram (Acute) Renal calculus (Acute) Eczema (Acute) Bladder tumor (Acute) Type 2 diabetes mellitus with hyperglycemia (Acute) Pulmonary nodule (Acute) Hypercholesterolemia (Acute) COPD (chronic obstructive pulmonary disease) (Acute) Obesity (BMI 30-39.9) (Acute) Hypothyroid (Acute) Past Medical History Medical History (Updated 12/20/22 @ 19:45 by Dina Aviles [facility]) Diarrhea Osteopenia Obstruction of kidney Obstructive sleep apnea Renal calculus Type 2 diabetes mellitus with hyperglycemia Pulmonary nodule Hypercholesterolemia COPD (chronic obstructive pulmonary disease) Obesity (BMI 30-39.9) Carpal tunnel syndrome Hypothyroid Family History Family History Father CVD (cardiovascular disease) Mother Diabetes Hypertension Heart failure Surgical History Surgical History S/P cystoscopy with ureteral stent placement History of cataract surgery History of bladder surgery History of tonsillectomy History of tubal ligation History of right oophorectomy Social History Social History Housing: Apartment Alcohol intake: never Patient Tobacco Use Status: Former Tobacco user Tobacco use type: Cigarette e-Cigarette/Vaping Use: Never Used Second Hand Smoke Exposure: No Use of substances other than those prescribed or required for medical reasons: No Are you DNR?: No Advance Directives: No Advance Directives Information Provided: Yes Current occupational status: disabled Cognitive needs: No Hearing needs: No Vision needs: No Meds Allergies Allergy/AdvReac Type Severity Reaction Status Date / Time ciprofloxacin [From CIPRO] Allergy Severe SWELLING Verified 12/20/22 09:56 Penicillins [PENICILLINS] Allergy Severe SWELLING Verified 12/20/22 09:56 latex [LATEX] Allergy Intermediate RASH Verified 12/20/22 09:56 simvastatin [SIMVASTATIN] Allergy Intermediate HEADACHE Verified 12/20/22 09:56 aspirin Allergy Unknown 'tastes Verified 12/20/22 09:56 blood metformin Allergy Unknown diarrhea Verified 12/20/22 09:56 pravastatin [Pravachol] Allergy Unknown Unknown Verified 12/20/22 09:56 tacrolimus Allergy Unknown Rash Verified 12/20/22 09:56 atorvastatin [From LIPITOR] AdvReac Intermediate HEADACHE Verified 12/20/22 09:56 Home Medications Medication Instructions Recorded Confirmed Last Taken Type dupilumab 300 mg/2 mL subcutaneous 300 mg subcut Q2W 02/12/21 11/27/22 Unknown History pen injector (Dupixent) albuterol sulfate 90 mcg/actuation 2 puff inhalation Q4-6H PRN 05/23/22 11/27/22 Unknown History aerosol inhaler (Ventolin HFA) Exam Exam Date and Time: January 15, 2023 1034 Height,Weight and Vital Signs: Height 5 ft Weight 92.079 kg Assessment and Plan Assessment Anesthesia Assessment: Chart Reviewed Documented by User: Tello Diggs MD 01/16/23 10:48 [facility] Past Medical History Medical History (Updated 12/20/22 @ 19:45 by Dina Aviles [facility]-) Diarrhea Osteopenia Obstruction of kidney Obstructive sleep apnea Renal calculus Type 2 diabetes mellitus with hyperglycemia Pulmonary nodule Hypercholesterolemia COPD (chronic obstructive pulmonary disease) Obesity (BMI 30-39.9) Carpal tunnel syndrome Hypothyroid Family History Family History Father CVD (cardiovascular disease) Mother Diabetes Hypertension Heart failure Family history of problems with anesthesia: No Surgical History Surgical History S/P cystoscopy with ureteral stent placement History of cataract surgery History of bladder surgery History of tonsillectomy History of tubal ligation History of right oophorectomy History of Problems with Anesthesia: No Social History Social History Housing: Apartment Alcohol intake: never Patient Tobacco Use Status: Former Tobacco user Tobacco use type: Cigarette e-Cigarette/Vaping Use: Never Used Second Hand Smoke Exposure: No Use of substances other than those prescribed or required for medical reasons: No Are you DNR?: No Advance Directives: No Advance Directives Information Provided: Yes Current occupational status: disabled Cognitive needs: No Hearing needs: No Vision needs: No Meds Allergies Allergy/AdvReac Type Severity Reaction Status Date / Time ciprofloxacin [From CIPRO] Allergy Severe SWELLING Verified 12/20/22 09:56 Penicillins [PENICILLINS] Allergy Severe SWELLING Verified 12/20/22 09:56 latex [LATEX] Allergy Intermediate RASH Verified 12/20/22 09:56 simvastatin [SIMVASTATIN] Allergy Intermediate HEADACHE Verified 12/20/22 09:56 aspirin Allergy Unknown 'tastes Verified 12/20/22 09:56 blood metformin Allergy Unknown diarrhea Verified 12/20/22 09:56 pravastatin [Pravachol] Allergy Unknown Unknown Verified 12/20/22 09:56 tacrolimus Allergy Unknown Rash Verified 12/20/22 09:56 atorvastatin [From LIPITOR] AdvReac Intermediate HEADACHE Verified 12/20/22 09:56 Home Medications Medication Instructions Recorded Confirmed Last Taken Type dupilumab 300 mg/2 mL subcutaneous 300 mg subcut Q2W 02/12/21 11/27/22 Unknown History pen injector (Dupixent) albuterol sulfate 90 mcg/actuation 2 puff inhalation Q4-6H PRN 05/23/22 11/27/22 Unknown History aerosol inhaler (Ventolin HFA) Exam Airway Mallampati Class: II TM Dist: <=3cm Neck ROM: Full Denture: Upper and Lower Heart: ok Lungs: ok Assessment and Plan Assessment Anesthesia Assessment: Anesthesia Plan Discussed Final Anesthetic Review Family History of Problems with Anesthesia: No History of Problems with Anesthesia: No NPO: Yes ASA Class: III Final Preanesthetic Review: No Changes in Pt Med Stat, Meds/Allgs Chart Reviewed, Consent Obtained/Reviewed and Anes Risks/Benef Reviewed Patient Risk: Intermediate Procedure Risk: Intermediate Anesthetic Plan Anesthetic Plan: MAC: and Agree w/ Assess. and Plan Disposition: Standard PACU
[2023-01-16 09:51] VITALS: BP 116/74; PULSE 90; RESP 16; TEMP 37; O2SAT 96
[2023-01-16 10:11] LABS: Glucose, Whole Blood 140 mg/dL (60-115)
--- NOTE | 2023-01-16 10:11 | MHC.SHP ---
Pre-Procedural Eval Section A Date of Service: 01/16/23 The History & Physical has been completed within 30 days and I have reviewed it.: Yes Section B Chief Complaint: gerd,screening Allergies: Allergies Allergy/AdvReac Type Severity Reaction Status Date / Time ciprofloxacin [From CIPRO] Allergy Severe SWELLING Verified 12/20/22 09:56 Penicillins [PENICILLINS] Allergy Severe SWELLING Verified 12/20/22 09:56 latex [LATEX] Allergy Intermediate RASH Verified 12/20/22 09:56 simvastatin [SIMVASTATIN] Allergy Intermediate HEADACHE Verified 12/20/22 09:56 aspirin Allergy Unknown 'tastes Verified 12/20/22 09:56 blood metformin Allergy Unknown diarrhea Verified 12/20/22 09:56 pravastatin [Pravachol] Allergy Unknown Unknown Verified 12/20/22 09:56 tacrolimus Allergy Unknown Rash Verified 12/20/22 09:56 atorvastatin [From LIPITOR] AdvReac Intermediate HEADACHE Verified 12/20/22 09:56 Plan Diagnosis/Plan: Unchanged I have reviewed the history and physical and performed a pertinent physical examination on my patient. No changes have occurred unless specified. Time Spent With Patient Time: Total time managing care of this patient today ____ minutes.
[2023-01-16] MEDS: Lactated Ringers 1,000 ML 100 ML IVCONT (10:20)
--- NOTE | 2023-01-16 11:00 | P.OP_ITS ---
Operative Note Operative Note Date of Service: 01/16/23 Narrative: Procedure:?Esophagogastroduodenoscopy and colonoscopy Endoscopist:?Shruthi Watkins MD Indication:?GERD, screening Anesthesia Provider:?Dr Ortiz Smith Anesthesia Type:?MAC Instrument:?Olympus GIF-H190, PCF-[id number] Colonoscopy Procedure:? The procedure, indications, preparation and potential complications were reviewed with the patient who indicated understanding and gave written informed consent to proceed. A digital rectal exam was performed which was abnormal for ext hemorrhoids.? A distal attachment cap was affixed to the tip of the scope and the colonoscope was then inserted through the anus and advanced through the colon to the cecum at 75 cm and terminal ileum. Appendiceal orifice and ileocecal valve were identified. Mucosa was carefully examined under high definition white light as the instrument was slowly withdrawn in a retrograde panoramic fashion. Retroflexion was performed in rectum. The procedure was not difficult. There were no immediate obvious complications. The quality of the prep was BBPS: 3+2+2 = adequate Withdrawal time: 14 minutes Limitations: No limitation. Findings: Mucosa: Erythema and whitish exudates noted on the ileocecal valve. Cold forceps biopsies were taken. The remaining mucosa was normal to cecum and terminal ileum. Protruding lesions: * A 2 cm subepithelial lesion was noted in ascending colon 3 cm proximal to IC valve. Pillow sign was positive. The lesion was unroofed with a cold snare and cold forceps biopsies were taken from underneath. * or 1 sessile polyp of size 2 mm was noted in the cecum. Cold snare polypectomy was performed. The polyp was completely removed and retrieved. * Small internal hemorrhoids without stigmata of recent bleeding. Excavate lesions: * Mild to moderate diverticulosis of sigmoid colon. EGD Procedure:?? The patient was then turned for the upper endoscopy. The endoscope was introduced through the bite block and advanced to the second part of duodenum. The mucosa was carefully examined on slow withdrawal of the endoscope. There were no immediate complications. Patient tolerated the procedure well. EGD Findings:? * Esophagus:?Mild erythema was noted at the GE junction with irregular Z line at 31 cm. Cold forceps biopsies were taken to rule out Bolaños's esophagus. There was a small hiatal hernia with diaphragmatic hiatus at 35 cm. * Stomach: Mild erythema and erosions noted in the body of the stomach. Retroflexion was performed in the cardia showed Hill grade 2 hiatal hernia. Random cold forceps biopsies were taken to rule out H pylori. * Duodenum:?Normal duodenal mucosa noted to the extent examined. Impression: 1. Irregular Z line (biopsy) 2. Mild gastritis (biopsy) 3. Normal duodenum 5. Abnormal ileocecal valve mucosa (biopsy) 6. Colon and terminal ileum mucosa normal 7. Ascending colon nodule (biopsy) 8. 1 polyp removed 9. Diverticulosis 10. Internal and external hemorrhoids Recommendations:?? * Await pathology results. * Repeat colonoscopy in 7-10 years if the polyp is an adenoma * Avoid NSAIDs
--- NOTE | 2023-01-16 11:05 | HO.ANESPROP2 ---
[facility] Active Problems Active Problems: All Active Problems (Updated 12/20/22 @ 19:45 by Dina Aviles [facility]-) Hip pain (Acute) Low back pain (Acute) Low vitamin D level (Acute) Urge incontinence (Acute) Obesity (Acute) GERD (gastroesophageal reflux disease) (Acute) Osteoporosis (Acute) Diabetic nephropathy (Acute) Breast cancer screening by mammogram (Acute) Renal calculus (Acute) Eczema (Acute) Bladder tumor (Acute) Type 2 diabetes mellitus with hyperglycemia (Acute) Pulmonary nodule (Acute) Hypercholesterolemia (Acute) COPD (chronic obstructive pulmonary disease) (Acute) Obesity (BMI 30-39.9) (Acute) Hypothyroid (Acute) Past Medical History Medical History Diarrhea Osteopenia Obstruction of kidney Obstructive sleep apnea Renal calculus Type 2 diabetes mellitus with hyperglycemia Pulmonary nodule Hypercholesterolemia COPD (chronic obstructive pulmonary disease) Obesity (BMI 30-39.9) Carpal tunnel syndrome Hypothyroid Family History Family History Father CVD (cardiovascular disease) Mother Diabetes Hypertension Heart failure Family history of problems with anesthesia: No Surgical History Surgical History S/P cystoscopy with ureteral stent placement History of cataract surgery History of bladder surgery History of tonsillectomy History of tubal ligation History of right oophorectomy History of Problems with Anesthesia: No Social History Social History Housing: Apartment Alcohol intake: never Patient Tobacco Use Status: Former Tobacco user Tobacco use type: Cigarette e-Cigarette/Vaping Use: Never Used Second Hand Smoke Exposure: No Use of substances other than those prescribed or required for medical reasons: No Are you DNR?: No Advance Directives: No Advance Directives Information Provided: Yes Current occupational status: disabled Cognitive needs: No Hearing needs: No Vision needs: No Meds Allergies Allergy/AdvReac Type Severity Reaction Status Date / Time ciprofloxacin [From CIPRO] Allergy Severe SWELLING Verified 12/20/22 09:56 Penicillins [PENICILLINS] Allergy Severe SWELLING Verified 12/20/22 09:56 latex [LATEX] Allergy Intermediate RASH Verified 12/20/22 09:56 simvastatin [SIMVASTATIN] Allergy Intermediate HEADACHE Verified 12/20/22 09:56 aspirin Allergy Unknown 'tastes Verified 12/20/22 09:56 blood metformin Allergy Unknown diarrhea Verified 12/20/22 09:56 pravastatin [Pravachol] Allergy Unknown Unknown Verified 12/20/22 09:56 tacrolimus Allergy Unknown Rash Verified 12/20/22 09:56 atorvastatin [From LIPITOR] AdvReac Intermediate HEADACHE Verified 12/20/22 09:56 Active Medications: Current Medications Albuterol Sulfate (Albuterol Sulfate (0.083%) 2.5 Mg/3 Ml Vial.Neb) 2.5 mg INHALE ONCE PRN PRN Reason: Shortness of Breath/Wheezing Lactated Ringer's (Lr) 1,000 mls @ 100 mls/hr IVCONT .Q10H WIN Last Admin: 01/16/23 10:20 Dose: 100 mls/hr Ondansetron HCl (Ondansetron Hcl 4 Mg/2 Ml Vial) 4 mg IVPUSH ONCE PRN PRN Reason: Nausea and Vomiting Home Medications Medication Instructions Recorded Confirmed Last Taken Type dupilumab 300 mg/2 mL subcutaneous 300 mg subcut Q2W 02/12/21 11/27/22 Unknown History pen injector (Dupixent) albuterol sulfate 90 mcg/actuation 2 puff inhalation Q4-6H PRN 05/23/22 11/27/22 Unknown History aerosol inhaler (Ventolin HFA) Exam Exam Date and Time: January 16, 2023 1105 Height,Weight and Vital Signs: Height 5 ft Weight 92.079 kg Last Vital Signs Temp 98.6 F 01/16/23 09:51 Pulse 90 01/16/23 09:51 Resp 16 01/16/23 09:51 BP 116/74 01/16/23 09:51 Pulse Ox 96 01/16/23 09:51 O2 Del Method Room Air 01/16/23 09:51 Pertinent Lab Results Pertinent Lab Results: Laboratory Tests 01/16/23 10:07 POC Glucose 140 H Assessment and Plan Final Anesthetic Review Family History of Problems with Anesthesia: No History of Problems with Anesthesia: No
[2023-01-16 11:59] VITALS: BP 133/71; PULSE 75; RESP 16; TEMP 36.6; O2SAT 95
[2023-01-16 12:14] VITALS: BP 145/79; PULSE 71; RESP 16; TEMP 36.6; O2SAT 96
== END 2023-01-16 13:07 | disposition home or self-care (01) ==
PROVIDERS: PCP Internal Medicine; Visit Provider Internal Medicine
PROC: (CPT 45385; principal; 2023-01-16 11:10)
DX: Z12.11 Encounter for screening for malignant neoplasm of colon (principal); Z86.010 Personal history of colon polyps; D12.0 Benign neoplasm of cecum; D12.2 Benign neoplasm of ascending colon; K57.30 Diverticulosis of large intestine without perforation or abscess without bleeding; K64.8 Other hemorrhoids; K64.4 Residual hemorrhoidal skin tags; K59.01 Slow transit constipation; K21.9 Gastro-esophageal reflux disease without esophagitis; K29.50 Unspecified chronic gastritis without bleeding; K22.89 Other specified disease of esophagus; K44.9 Diaphragmatic hernia without obstruction or gangrene; E11.65 Type 2 diabetes mellitus with hyperglycemia; E78.00 Pure hypercholesterolemia, unspecified; G47.33 Obstructive sleep apnea (adult) (pediatric); J44.9 Chronic obstructive pulmonary disease, unspecified; R91.1 Solitary pulmonary nodule; M85.80 Other specified disorders of bone density and structure, unspecified site; Z79.899 Other long term (current) drug therapy; Z88.0 Allergy status to penicillin; Z88.1 Allergy status to other antibiotic agents; Z88.8 Allergy status to other drugs, medicaments and biological substances; Z91.040 Latex allergy status; Z87.891 Personal history of nicotine dependence
CPT/HCPCS: 45385; 45380; 43239; 82947; 88305; 88342

== ENCOUNTER → 2023-01-16 09:18 | Outpatient (BNV) | payer OTHER, SELFPAY | PROVIDERS: PCP Internal Medicine; Visit Provider Internal Medicine | DX: Z12.11 Encounter for screening for malignant neoplasm of colon (principal); D12.0 Benign neoplasm of cecum; K52.9 Noninfective gastroenteritis and colitis, unspecified; D17.5 Benign lipomatous neoplasm of intra-abdominal organs; K21.9 Gastro-esophageal reflux disease without esophagitis; K29.70 Gastritis, unspecified, without bleeding | CPT/HCPCS: 43239; 45380; 45385 ==

== ENCOUNTER 2023-02-03 09:54 | Outpatient (AMB) | payer MEDICARE, MEDICAID, SELFPAY ==
--- NOTE | 2023-02-03 10:09 | A.OFFVIS_ITS ---
Intake Vital Signs 02/03/23 10:11 Height 5 ft Weight 201 lb 15.095 oz BMI 39.4 BP 149/69 H Blood Pressure Location Lt brachial Position Sitting Pulse 75 Intake Visit Reasons: S/P Double; Dr. Lopez Intake Note: Patient presents to in office visit today in follow up of colonoscopy and EGD. CC: Patient underwent EGD and colonoscopy on 01/16/23. Patient reports a little bit of acid reflux and a lot of gas. Denies other GI symptoms today. Inspector Automatic Typewriter Required: No Accompanied by: Self / Same As Patient Allergies ciprofloxacin [From CIPRO] Allergy (Severe, Verified 02/03/23 10:12) SWELLING Penicillins [PENICILLINS] Allergy (Severe, Verified 02/03/23 10:12) SWELLING latex [LATEX] Allergy (Intermediate, Verified 02/03/23 10:12) RASH simvastatin [SIMVASTATIN] Allergy (Intermediate, Verified 02/03/23 10:12) HEADACHE aspirin Allergy (Unknown, Verified 02/03/23 10:12) 'tastes blood metformin Allergy (Unknown, Verified 02/03/23 10:12) diarrhea pravastatin [Pravachol] Allergy (Unknown, Verified 02/03/23 10:12) Unknown tacrolimus Allergy (Unknown, Verified 02/03/23 10:12) Rash atorvastatin [From LIPITOR] Adverse Reaction (Intermediate, Verified 02/03/23 10:12) HEADACHE HPI S/P Double; Dr. Lopez HPI Details LAST VISIT GERD (gastroesophageal reflux disease) Continue pantoprazole in the morning and famotidine at bedtime. Patient was encouraged to avoid dietary triggers in late night snacking. Staying upright for minimum 3 hours after meals discussed with patient. Screen for colon cancer Discussed with patient clear liquid diet day before the procedure. The importance of good bowel prep discussed with patient. Patient is will start Dulcolax tablets every day as well as MiraLax in the morning. No changes since last visit. Patient denies any cardiac or respiratory symptoms. Postprandial abdominal bloating Occasional postprandial abdominal bloating. Patient feels like it is related to her being constipated. Discussed with patient will FODMAP diet. Went over food recommended as well as food to avoid. Constipation Patient will stop Senokot and start Dulcolax tablets every evening. Patient can also take MiraLax in the morning. I will see her after the procedure, sooner on as needed basis. Patient is agreeable to this plan and verbalizes understanding of instructions. She was given the opportunity to ask questions and all questions answered. ? Thank you for allowing me to participate in her care Plan Medications New polyethylene glycol 3350 (Miralax) 17 grams PO DAILY 510 grams 2RF bisacodyl (Dulcolax (bisacodyl)) 10 mg (2 x 5 mg) PO BEDTIME 180 tabs 4RF Discontinued sennosides (Natural Senna Laxative) Discontinued Reason: Doctor's Order 17.2 mg (2 x 8.6 mg) PO BEDTIME 60 tabs 3RF constipation K59.00 UPPER ENDOSCOPY AND COLONOSCOPY Findings colonoscopy Mucosa: Erythema and whitish exudates noted on the ileocecal valve. Cold forceps biopsies were taken. The remaining mucosa was normal to cecum and terminal ileum. Protruding lesions: * A 2 cm subepithelial lesion was noted in ascending colon 3 cm proximal to IC valve. Pillow sign was positive. The lesion was unroofed with a cold snare and cold forceps biopsies were taken from underneath. * or 1 sessile polyp of size 2 mm was noted in the cecum. Cold snare polypectomy was performed. The polyp was completely removed and retrieved. * Small internal hemorrhoids without stigmata of recent bleeding.Excavate lesions: * Mild to moderate diverticulosis of sigmoid colon. Impression endoscopy 1. Irregular Z line (biopsy) 2. Mild gastritis (biopsy) 3. Normal duodenum 5. Abnormal ileocecal valve mucosa (biop sy) 6. Colon and terminal ileum mucosa chrissy l 7. Ascending colon nodule (biopsy) 8. 1 polyp removed 9. Diverticulosis 10. Internal and external hemorrhoids Recommendations:?? * Await pathology results. * Repeat colonoscopy in 7-10 years if the polyp is an adenoma * Avoid NSAIDs * PATHOLOGY RESULTS: Diagnosis A. Colon, cecal polyp: Tubular adenoma; negative for high-grade dysplasia and carcinoma. B. Ileocecal valve, abnormal mucosa, biopsy: Ileal mucosa with focal active ileitis and focal submucosal adipose, cannot exclude submucosal lipoma (see comment). C. Colon, ascending, nodule, biopsy: Colonic mucosa with prominent submucosal adipose, suspicious for submucosal lipoma. D. Stomach, random, biopsy: Gastric antral mucosa with congestion, minimal chronic inactive gastritis, and focal intestinal metaplasia; negative for H pylori and dysplasia. E. Esophagus, lower, biopsy: Squamous mucosa with hyperplasia and focal intraepithelial eosinophils (up to 3 per high-power field) consisten t with reflux esophagitis, and columnar mucosa with mild chronic active inflammation; negative for intestinal metaplasia and dysplasia. Comment: (B): The focal mild inflammation in the ileal mucosa may be due to NSAIDs/drug- related injury, bowel prep, infectious causes, or inflammatory bowel disease, and clinical correlation is necessary TODAY'S VISIT Patient is here today discuss upper endoscopy colonoscopy results. Patient had 1 small cecal polyp that showed tubular. Patient need repeat colonoscopy 7 years, sooner if clinically necessary. Patient had mild chronic gastritis without dysplasia or H pylori. Patient reports that she has been taking her pantoprazole in the morning famotidine at bedtime and states that she has been feeling better. Occasional postprandial abdominal bloating and acid reflux, however patient reports that she has been doing much better since she started treatment with PPI and H2 ned. Patient denies any nausea or vomiting. Reports occasional dyspepsia without dysphagia or odynophagia. Denies any melena, hematochezia, unintentional weight loss or ribbon like stools. [facility] Medical History Diarrhea Osteopenia Obstruction of kidney Obstructive sleep apnea Renal calculus Type 2 diabetes mellitus with hyperglycemia Pulmonary nodule Hypercholesterolemia COPD (chronic obstructive pulmonary disease) Obesity (BMI 30-39.9) Carpal tunnel syndrome Hypothyroid Surgical History S/P cystoscopy with ureteral stent placement History of cataract surgery History of bladder surgery History of tonsillectomy History of tubal ligation History of right oophorectomy Family History Father CVD (cardiovascular disease) Mother Diabetes Hypertension Heart failure Social History Housing: Apartment Alcohol intake: never Patient Tobacco Use Status: Former Tobacco user Tobacco use type: Cigarette e-Cigarette/Vaping Use: Never Used Second Hand Smoke Exposure: No Current occupational status: disabled Cognitive needs: No Hearing needs: No Vision needs: No Review of Systems Const Denies weight gain and Denies weight loss ENT Reports no additional complaints, Denies dysphagia and Denies odynophagia Card Reports no additional complaints Resp Reports no additional complaints GI Denies abdominal pain, Denies belching, Denies melena, Reports bloating, Denies change in bowel habits, Denies dysphagia, Denies excessive flatus, Denies dyspepsia, Reports heartburn (Occasional), Denies diarrhea, Denies loose stools, Denies nausea, Denies odynophagia and Denies vomiting Reports no additional complaints Musc Reports no additional complaints Neuro Reports no additional complaints Psych Reports no additional complaints Endo Reports no additional complaints Physical Exam Vital Signs: Last Vital Signs Pulse 75 02/03/23 10:11 BP 149/69 H 02/03/23 10:11 BMI result Body Mass Index 39.4 Const General: healthy appearing, no acute distress and well developed Nutritional Appearance: obese Orientation/consciousness: patient oriented x3 HEENT Head: Yes normal to inspection, Yes normocephalic and Yes atraumatic Face and sinus: Yes normal facial exam Mouth: Normal oral and palatal mucosa present Throat: Yes posterior oropharynx normal, Yes tonsils normal and Yes uvula midline Eyes General: appearance normal, both eyes and all related structures Neck Neck: Yes normal visual inspection, Yes full ROM and Yes trachea midline Thyroid: Thyroid normal Resp Effort & Inspection: normal respiratory effort, able to speak in complete sentences, no tracheal deviation and symmetric chest movement Auscultation: clear to auscultation bilaterally Cardio Rate: regular rate Heart sounds: S1 normal heart sound present and S2 normal heart sound present GI Inspection: Yes normal to inspection, No distended and Yes obesity Palpation (GI): Soft to palpation, not firm, nontender and No hepatosplenomegaly present Auscultation: normal bowel sounds General: Yes no CVA tenderness Back/Spine/Pelvis Back: no CVA tenderness Skin General skin exam: elasticity normal, turgor normal and dry skin Neuro General: patient oriented x3 Psych Appearance: grossly normal Mental Status: mental status grossly normal Assessment & Plan Assessment & Plan (1) GERD (gastroesophageal reflux disease): Code(s): K21.9 - Gastro-esophageal reflux disease without esophagitis Qualifiers: Esophagitis presence: esophagitis presence not specified Qualified Code(s): K21.9 - Gastro-esophageal reflux disease without esophagitis (2) Postprandial abdominal bloating: Code(s): R14.0 - Abdominal distension (gaseous) (3) Constipation: Code(s): K59.00 - Constipation, unspecified Qualifiers: Constipation type: slow transit constipation Qualified Code(s): K59.01 - Slow transit constipation (4) Tubular adenoma: Code(s): D36.9 - Benign neoplasm, unspecified site Plan Upper endoscopy and colonoscopy risk us with patient. Tubular adenoma found and cecum without high-grade dysplasia or carcinoma. Colorectal screening in 7 years, sooner if clinically necessary. Mild chronic gastritis. Patient will continue pantoprazole 20 mg in the morning and famotidine at bedtime. Patient reports that she feels like it helps. Continue avoiding dietary triggers and late night snacking. Staying upright for minimum 3 hours after meals discussed with patient. Continue Dulcolax at bedtime. Patient was encouraged to increase fluid intake and activity to promote better bowel mobility. I will see her in 6 months, sooner if needed basis. Patient is agreeable to this plan and verbalizes understanding of instructions. She was given the opportunity to ask questions and all questions answered. Thank you for allowing me to participate in her care Medications: Refilled famotidine (Pepcid) 20 mg PO BEDTIME 30 tabs 4RF K21.9 - Gastro-esophageal reflux disease without esophagitis pantoprazole 20 mg PO DAILY 30 tabs 3RF Coding Level of Care Code Est Pt Level 4 (78378) Diagnoses Gastroesophageal reflux disease, unspecified whether esophagitis present K21.9 Esophagitis presence: esophagitis presence not specified Postprandial abdominal bloating R14.0 Slow transit constipation K59.01 Constipation type: slow transit constipation Tubular adenoma D36.9 Time Spent (min) 35 Comment 20 minutes spent with patient and additional 15 minutes spent reviewing her records
[2023-02-03 10:11] VITALS: BP 149/69; PULSE 75; BMI 39.4
== END 2023-02-03 10:42 | disposition home or self-care (01) ==
PROVIDERS: PCP Internal Medicine; Visit Provider Nurse Practitioner Family
DX: K21.9 Gastro-esophageal reflux disease without esophagitis (principal); R14.0 Abdominal distension (gaseous); K59.01 Slow transit constipation; D36.9 Benign neoplasm, unspecified site
CPT/HCPCS: 99214

== ENCOUNTER → 2023-02-03 09:54 | Outpatient (BNVA) | payer MEDICARE, MEDICAID, SELFPAY | PROVIDERS: PCP Internal Medicine; Visit Provider Nurse Practitioner Family | DX: K21.9 Gastro-esophageal reflux disease without esophagitis (principal); K59.01 Slow transit constipation; D36.9 Benign neoplasm, unspecified site; R14.0 Abdominal distension (gaseous) | CPT/HCPCS: 99212 ==

== ENCOUNTER 2023-03-03 10:24 | Outpatient (AMB) | payer MEDICARE, MEDICAID, SELFPAY ==
[2023-03-03 10:30] VITALS: BP 128/70; PULSE 71; O2SAT 97; BMI 39.4
--- NOTE | 2023-03-03 10:30 | MHC.OFFVIS ---
Intake Vital Signs 03/03/23 10:30 Height 5 ft Weight 201 lb 11.567 oz BMI 39.4 BP 128/70 Blood Pressure Location Lt brachial Position Sitting Pulse 71 Pulse Source Pulse Oximeter Pulse Oximetry (%) 97 Oxygen Delivery Method Room Air Intake Visit Reasons: COPD Allergies ciprofloxacin [From CIPRO] Allergy (Severe, Verified 03/03/23 10:34) SWELLING Penicillins [PENICILLINS] Allergy (Severe, Verified 03/03/23 10:34) SWELLING latex [LATEX] Allergy (Intermediate, Verified 03/03/23 10:34) RASH simvastatin [SIMVASTATIN] Allergy (Intermediate, Verified 03/03/23 10:34) HEADACHE aspirin Allergy (Unknown, Verified 03/03/23 10:34) 'tastes blood metformin Allergy (Unknown, Verified 03/03/23 10:34) diarrhea pravastatin [Pravachol] Allergy (Unknown, Verified 03/03/23 10:34) Unknown tacrolimus Allergy (Unknown, Verified 03/03/23 10:34) Rash atorvastatin [From LIPITOR] Adverse Reaction (Intermediate, Verified 03/03/23 10:34) HEADACHE HPI HPI Comments History of Present Illness Details The patient is here for pulmonary evaluation. The patient is a 67 year woman with a known history of COPD and also obstructive sleep apnea. The patient apparently has been having increasing dyspnea on exertion. She has been on Symbicort for some time. She takes it twice a day. She has a rescue inhaler that she rarely needs. 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 The patient has not had any pulmonary function studies to review. On recent imaging study either. She is a former smoker though she stop smoking about 15 years ago therefore no longer qualified for the lung cancer screening program. In regards to the sleep apnea she is not on CPAP therapy. That was many years ago she did tried CPAP at the pressures are too high. She states about 12 years ago. She therefore return the machine. She continues to have daytime drowsiness with an elevated [place] score of 10/24. The patient is reluctant to having sleep study this time. She is agreeable to having overnight oximetry though to make sure that she is not having any significant hypoxia and which become more of a priority. She would like to wait until the school years over to have testing. Therefore have her return in 6 months with PFTs and chest x-ray. If however her overnight oximetry is abnormal I will call her for further assessment. [facility] Medical History (Updated 03/03/23 @ 21:56 by Elias Worthy MD) Dyspnea Diarrhea Osteopenia Obstruction of kidney Obstructive sleep apnea Renal calculus Type 2 diabetes mellitus with hyperglycemia Pulmonary nodule Hypercholesterolemia COPD (chronic obstructive pulmonary disease) Obesity (BMI 30-39.9) Carpal tunnel syndrome Hypothyroid Surgical History S/P cystoscopy with ureteral stent placement History of cataract surgery History of bladder surgery History of tonsillectomy History of tubal ligation History of right oophorectomy Family History Father CVD (cardiovascular disease) Mother Diabetes Hypertension Heart failure Social History Housing: Apartment Alcohol intake: never Patient Tobacco Use Status: Former Tobacco user Tobacco use type: Cigarette e-Cigarette/Vaping Use: Never Used Second Hand Smoke Exposure: No Current occupational status: disabled Cognitive needs: No Hearing needs: No Vision needs: No Review of Systems Const Reports daytime sleepiness, Reports difficulty sleeping, Reports snoring, Denies weight gain and Denies weight loss ENT Reports no additional complaints Card Reports no additional complaints and Reports dyspnea on exertion Resp Reports dyspnea on exertion, Reports snoring and Denies wheezing GI Denies abdominal pain Reports no additional complaints Musc Reports no additional complaints Skin/Breast Denies rash Neuro Reports no additional complaints Psych Reports no additional complaints Endo Reports no additional complaints Ketan/Lymph Denies lymphadenopathy Aller/Immun Denies wheezing Physical Exam Vital Signs: Last Vital Signs Pulse 71 03/03/23 10:30 BP 128/70 03/03/23 10:30 Pulse Ox 97 03/03/23 10:30 Oxygen Delivery Method Room Air 03/03/23 10:30 BMI result Body Mass Index 39.4 Const General: healthy appearing Orientation/consciousness: patient oriented x3 HEENT Head: Yes normal to inspection and Yes normocephalic Eyes General: appearance normal, both eyes and all related structures Neck Neck: Yes normal visual inspection, Yes full ROM and Yes trachea midline Chest Chest palpation & inspection: normal inspection of the chest Resp Effort & Inspection: normal respiratory effort, able to speak in complete sentences and symmetric chest movement Auscultation: diminished lung sounds Cardio Rate: regular rate Heart sounds: S1 normal heart sound present and S2 normal heart sound present GI Palpation (GI): Soft to palpation Auscultation: normal bowel sounds Skin General skin exam: elasticity normal Neuro General: patient oriented x3 Psych Appearance: grossly normal Mental Status: mental status grossly normal Assessment & Plan Assessment & Plan (1) COPD (chronic obstructive pulmonary disease): Comment: March 2017 PFT Code(s): J44.9 - Chronic obstructive pulmonary disease, unspecified Qualifiers: COPD type: chronic bronchitis Chronic bronchitis type: simple Qualified Code(s): J41.0 - Simple chronic bronchitis (2) Dyspnea: Code(s): R06.00 - Dyspnea, unspecified Qualifiers: Dyspnea type: dyspnea on exertion Qualified Code(s): R06.09 - Other forms of dyspnea (3) Obstructive sleep apnea: Code(s): G47.33 - Obstructive sleep apnea (adult) (pediatric) Plan overnight oximetry continue Symbicort JASPREET as needed PFTs/CXR in 6 months consider PSG F/U 6 months Orders: Orders Overnight Pulse Oximetry Today J44.9 - Chronic obstructive pulmonary disease, unspecified PFT pulmonary function test 6 Months J44.9 - Chronic obstructive pulmonary disease, unspecified XR chest 2V Today J44.9 - Chronic obstructive pulmonary disease, unspecified Coding Level of Care Code New Pt Level 4 (79948) Diagnoses Simple chronic bronchitis J41.0 COPD type: chronic bronchitis Chronic bronchitis type: simple Dyspnea on exertion R06.09 Dyspnea type: dyspnea on exertion Obstructive sleep apnea G47.33 Time Spent (min) 35
== END 2023-03-03 10:49 | disposition home or self-care (01) ==
PROVIDERS: PCP Internal Medicine; Referring Provider Nurse Practitioner Family; Visit Provider Hospitalist
DX: J41.0 Simple chronic bronchitis (principal); R06.09 Other forms of dyspnea; G47.33 Obstructive sleep apnea (adult) (pediatric)
CPT/HCPCS: 99204

== ENCOUNTER → 2023-03-03 10:24 | Outpatient (BNVA) | payer MEDICARE, MEDICAID, SELFPAY | PROVIDERS: PCP Internal Medicine; Referring Provider Nurse Practitioner Family; Visit Provider Hospitalist | DX: J41.0 Simple chronic bronchitis (principal); G47.33 Obstructive sleep apnea (adult) (pediatric); R06.09 Other forms of dyspnea | CPT/HCPCS: 99202 ==

== ENCOUNTER 2023-05-28 09:30 | Outpatient (AMB) | payer MEDICARE, MEDICAID, SELFPAY ==
[2023-05-28 09:55] VITALS: BP 136/78; PULSE 77; O2SAT 97; BMI 38.5
--- NOTE | 2023-05-28 09:55 | MHC.PC.OV ---
Vital Signs 05/28/23 09:55 Height 5 ft Weight 197 lb BMI 38.5 BP 136/78 Blood Pressure Location Lt brachial Position Sitting Pulse 77 Pulse Source Pulse Oximeter Pulse Oximetry (%) 97 Oxygen Delivery Method Room Air Intake Visit Reasons: DM, hypothyroid Allergies ciprofloxacin [From CIPRO] Allergy (Severe, Verified 05/28/23 09:56) SWELLING Penicillins [PENICILLINS] Allergy (Severe, Verified 05/28/23 09:56) SWELLING latex [LATEX] Allergy (Intermediate, Verified 05/28/23 09:56) RASH simvastatin [SIMVASTATIN] Allergy (Intermediate, Verified 05/28/23 09:56) HEADACHE aspirin Allergy (Unknown, Verified 05/28/23 09:56) 'tastes blood metformin Allergy (Unknown, Verified 05/28/23 09:56) diarrhea pravastatin [Pravachol] Allergy (Unknown, Verified 05/28/23 09:56) Unknown tacrolimus Allergy (Unknown, Verified 05/28/23 09:56) Rash atorvastatin [From LIPITOR] Adverse Reaction (Intermediate, Verified 05/28/23 09:56) HEADACHE Tobacco use date assessed: 05/28/23 Fall risk assessment: No Falls in past year Last assessed Fall Risk: 05/28/23 Dental Screening Dental Screen Date: 05/28/23 Did you have a dental visit in the last 12 months?: No Did you have a dental problem in the last 6 months where you did not have access to dental care?: No Was dental information given to patient?: No HPI DM, hypothyroid HPI Details 67-year-old obese female with diabetes mellitus hypercholesterolemia COPD hypothyroid GERD last seen in November 2022. Patient's colonoscopy is up-to-date December 2022 bone density is due mammogram is due. Patient is here for follow-up. Review of the notes patient underwent an overnight oximetry showing 15 desaturations during the night and qualified for oxygen at home. They did mention about sleep apnea but she has tried the CPAP before but could not tolerate it.. Patient also followed up with Gastroenterology GERD, abdominal bloating and constipation has had endoscopy and colonoscopy with tubular adenoma minimal chronic inactive gastritis reflux esophagitis advise retesting in 7 years on pantoprazole famotidine. Received also a CT scan done August 2022 showing renal calculi bilateral renal cyst diverticulosis. On maren and awaiting paper. 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 was given a DM shoe but cannot wear due to heavy PFSH Medical History (Updated 05/28/23 @ 10:17 by You Gallardo MD) Dyspnea Diarrhea Osteopenia Obstruction of kidney Obstructive sleep apnea Renal calculus Type 2 diabetes mellitus with hyperglycemia Pulmonary nodule Hypercholesterolemia COPD (chronic obstructive pulmonary disease) Obesity (BMI 30-39.9) Carpal tunnel syndrome Hypothyroid Surgical History S/P cystoscopy with ureteral stent placement History of cataract surgery History of bladder surgery History of tonsillectomy History of tubal ligation History of right oophorectomy Family History Father CVD (cardiovascular disease) Mother Diabetes Hypertension Heart failure Social History Housing: Apartment Alcohol intake: never Patient Tobacco Use Status: Former Tobacco user Tobacco use type: Cigarette e-Cigarette/Vaping Use: Never Used Second Hand Smoke Exposure: No Current occupational status: disabled Cognitive needs: No Hearing needs: No Vision needs: No Questionnaire PHQ-9 Over the last 2 weeks, how often have you been bothered by any of the following problems? 1. Little interest or pleasure in doing things: not at all 2. Feeling down, depressed, or hopeless: not at all 3. Trouble falling or staying asleep, or sleeping too much: not at all 4. Feeling tired or having little energy: not at all 5. Poor appetite or overeating: not at all 6. Feeling bad about yourself - or that you are a failure or have let yourself or your family down: not at all 7. Trouble concentrating on things, such as reading the newspaper or watching television: not at all 8. Moving or speaking so slowly that other people could have noticed. Or the opposite - being so fidgety or restless that you have been moving around a lot more than usual: not at all 9. Thoughts that you would be better off or of hurting yourself in some way: not at all Total score: 0 Depression Screening Interpretation: Negative Depression Screening Done: Yes 23125 - PHQ-9 Billing: Yes Source: Developed by Drs. Jeromy L. PaulKristin li, Chato Wild and colleagues, with an educational angelica from [employer]. Thrive Questionnaire Date Thrive assessed: 05/28/23 I am a: Patient What is your living situation today?: I have a steady place to live Within the past 12 months, did the food you bought not last and you didn't have the money to get more?: Never true Within the past 12 months, did you worry whether your food would run out before you got money to buy more?: Never true Do you have trouble paying for medicines?: No Do you have trouble getting transportation to medical appointments?: No Do you have trouble paying your heating and electricity bill?: No Do you have trouble taking care of your child, family member or friend?: No Do you have trouble with day-to-day activities such as bathing, preparing meals, shopping, managing finances, etc.?: No Are you currently unemployed and looking for a job?: No Are you interested in more education?: No Currently or been in a relationship where the following occur: no concerns reported THRIVE Score: 0 AUDIT C Alcohol Use Questionnaire (AUDIT-C) 1. How often do you have a drink containing alcohol?: Monthly or less 2. How many drinks containing alcohol do you have on a typical day when you are drinking?: 1 or 2 3. How often do you have six or more drinks on one occasion?: Never Total Score: 1 Score Reviewed/Action Taken: No NATIVIDAD-7 AMB Questionnaire NATIVIDAD-7 Date NATIVIDAD - 7 assessed: 05/28/23 Feeling nervous, anxious, or on edge: 0 = Not at all Not being able to stop or control worryin = Not at all Worrying too much about different things: 0 = Not at all Trouble relaxin = Not at all Being so restless that it is hard to sit still: 0 = Not at all Becoming easily annoyed or irritable: 0 = Not at all Feeling afraid as if something awful might happen: 0 = Not at all Total NATIVIDAD-7 score (0-4 normal; 5-9 mild; 10-14 moderate; 15-21 severe): 0 Source: Developed by Kristin Christine Kurt Kroenke and colleagues, with an educational angelica from [employer] Physical exam (Primary Care) Vital Signs: Last Vital Signs Pulse 77 05/28/23 09:55 BP 136/78 05/28/23 09:55 Pulse Ox 97 05/28/23 09:55 Oxygen Delivery Method Room Air 05/28/23 09:55 BMI result Body Mass Index 38.5 Tobacco/Smoking Status: Tobacco use Status Tobacco use date assessed 05/28/23 05/28/23 09:57 Patient Tobacco Use Status Former Tobacco user 05/28/23 09:57 Tobacco use type Cigarette 05/28/23 09:57 e-Cigarette/Vaping Use Never Used 05/28/23 09:57 PHQ-9: PHQ-9 Score PHQ-9: Total score 0 05/28/23 10:11 Depression Screening Interpretation: Negative Thrive Assessment: Date of Thrive Assessment Date Thrive assessed 05/28/23 05/28/23 09:57 Currently or been in a relationship where the following occur: no concerns reported Const General: alert; No acute distress Eyes Conjunctivae: conjunctivae normal Resp Auscultation: clear to auscultation bilaterally Cardio Rate: regular rate Rhythm: regular rhythm GI Inspection: Yes normal to inspection Extrem General: Yes normal to inspection and No edema Results AMB Hemoglobin A1c AMB Hemoglobin A1c 6.6 % Last Edit by Sally Franco CMA on 05/28/23 10:12 Results Reviewed Results Reviewed: Laboratory Last Values Hgb A1c (Clinic) 6.6 % (4.0-6.0) H 05/28/23 09:58 Assessment and Plan Assessment & Plan (1) Obstructive sleep apnea: Comment: Can not tolerate CPAP Code(s): G47.33 - Obstructive sleep apnea (adult) (pediatric) Plan: Can not tolerate CPAP (2) Nocturnal hypoxemia: Code(s): G47.34 - Idiopathic sleep related nonobstructive alveolar hypoventilation Plan: Discussed about the overnight oximetry showing hypoxemic episodes 15 times per hour (3) Osteoporosis: Comment: March 2021 Code(s): M81.0 - Age-related osteoporosis without current pathological fracture Plan: Discussed about repeating bone density (4) Type 2 diabetes mellitus with hyperglycemia: Comment: Dr. Barfield Code(s): E11.65 - Type 2 diabetes mellitus with hyperglycemia Plan: Decrease the amount of carbohydrate intake, pasta, bread, rice and potatoes are all sugar and that is aside from all the sweet stuff, remember that fruits are good but they are Sweet also. Hemoglobin A1c goal now is less than 7.0 patient is on Jardiance glimepiride (5) Hypercholesterolemia: Code(s): E78.00 - Pure hypercholesterolemia, unspecified Plan: Avoid fried foods, chicken skin, eggs, butter margarine, pastries and meat. Be it pork or beef they have a lot of cholesterol LDL goal of less than 100 and triglyceride of less than 150. Patient needs blood work (6) COPD (chronic obstructive pulmonary disease): Comment: March 2017 PFT Code(s): J44.9 - Chronic obstructive pulmonary disease, unspecified Qualifiers: COPD type: chronic bronchitis Chronic bronchitis type: simple Qualified Code(s): J41.0 - Simple chronic bronchitis Plan: Continue with the inhaler as per Pulmonary (7) Obesity (BMI 30-39.9): Code(s): E66.9 - Obesity, unspecified Plan: Diet and exercise (8) Hypothyroid: Code(s): E03.9 - Hypothyroidism, unspecified Plan: Continue with thyroid medication (9) Renal calculus: Comment: March 2019 bladder tumor, cystoscopy with stent placement January 2020, right ureteroscopy with stent placement September 2020, right lithotripsy August 2021, CT scan August 2022 bilateral renal calculi Code(s): N20.0 - Calculus of kidney Plan: Keep well hydrated Orders: Orders RT home sleep study Today G47.33 - Obstructive sleep apnea (adult) (pediatric) AMB Hemoglobin A1c Today Z13.9 - Encounter for screening, unspecified Medications: New albuterol sulfate 90 mcg/actuation (Ventolin HFA) 2 puffs inhalation Q4-6H PRN 8.5 grams 0RF bronchospasm J44.9 - Chronic obstructive pulmonary disease, unspecified Refilled budesonide-formoterol 80-4.5 mcg/actuation (Symbicort) Patient uses as needed. 1 inh inhalation BID PRN 10.2 grams 1RF shortness of breath or wheezing J44.9 - Chronic obstructive pulmonary disease, unspecified budesonide-formoterol 80-4.5 mcg/actuation (Symbicort) Patient uses as needed. 1 inh inhalation BID PRN 10.2 grams 12RF shortness of breath or wheezing J44.9 - Chronic obstructive pulmonary disease, unspecified Coding Level of Care Code Est Pt Level 4 (61591) Diagnoses Obstructive sleep apnea G47.33 Nocturnal hypoxemia G47.34 Osteoporosis M81.0 Type 2 diabetes mellitus with hyperglycemia E11.65 Hypercholesterolemia E78.00 Simple chronic bronchitis J41.0 COPD type: chronic bronchitis Chronic bronchitis type: simple Obesity (BMI 30-39.9) E66.9 Hypothyroid E03.9 Renal calculus N20.0
== END 2023-05-28 10:39 | disposition home or self-care (01) ==
PROVIDERS: PCP Internal Medicine; Visit Provider Internal Medicine
DX: G47.33 Obstructive sleep apnea (adult) (pediatric) (principal); G47.34 Idiopathic sleep related nonobstructive alveolar hypoventilation; J41.0 Simple chronic bronchitis; E11.65 Type 2 diabetes mellitus with hyperglycemia; E78.00 Pure hypercholesterolemia, unspecified; E03.9 Hypothyroidism, unspecified; N20.0 Calculus of kidney
CPT/HCPCS: 83036; 99214

== ENCOUNTER → 2023-06-18 07:52 | Outpatient (REF) | payer MEDICARE, MEDICAID, SELFPAY ==
--- NOTE | ~2023-06-18 | XR_ITS ---
EXAMINATION: XR LUMBOSACRAL SPINE CLINICAL INFORMATION: Low back pain, unspecified COMPARISON: Lumbar spine 214 [id number] TECHNIQUE: Three views of the lumbosacral spine. FINDINGS: There 5 nonrib-bearing lumbar-type vertebral bodies. The height of vertebral bodies is well-maintained. Intervertebral disc spaces are well preserved. No significant degenerative changes are seen. There is partial calcification of abdominal aorta without evidence of aneurysmal dilatation. Bilateral fallopian tube clips are seen. XR/XR lumbar spine 2-3V IMPRESSION: No significant abnormality of the lumbar spine.
--- NOTE | ~2023-06-18 | XR_ITS ---
EXAMINATION: XR BILATERAL HIPS WITH AP PELVIS CLINICAL INFORMATION: Pain in unspecified hip Back pain COMPARISON: None available. TECHNIQUE: AP view of the pelvis and single views of each hip were obtained. FINDINGS: No fracture. Hip joint spaces are maintained. Alignment is anatomic. Sacroiliac joints and pubic symphysis are normal. Calcification adjacent to the greater trochanter of the left hip can be seen with gluteal tendinosis. Bilateral fallopian tube clips are seen. XR/XR hip BI w PEL1V IMPRESSION: No bony abnormality of the hips.
--- NOTE | ~2023-06-18 | XR_ITS ---
EXAMINATION: XR CHEST CLINICAL INFORMATION: Chronic obstructive pulmonary disease, unspecified Back pain COMPARISON: Chest 06/26/2017 TECHNIQUE: 2 views of the chest were obtained. FINDINGS: No significant abnormality is noted involving the heart, lungs, mediastinum, bony thorax or soft tissues. XR/XR chest 2V IMPRESSION: No acute cardiopulmonary disease.
== END ==
LOC: HO.SL 07:52
PROVIDERS: PCP Internal Medicine; Visit Provider Internal Medicine
DX: G47.33 Obstructive sleep apnea (adult) (pediatric) (principal); J44.9 Chronic obstructive pulmonary disease, unspecified; M54.50 Low back pain, unspecified; M25.551 Pain in right hip; M25.552 Pain in left hip
CPT/HCPCS: 71046; 72100; 73521; 95806

== ENCOUNTER → 2023-06-18 08:31 | Outpatient (BNV) | payer MEDICARE, MEDICAID, SELFPAY | PROVIDERS: PCP Internal Medicine; Visit Provider Internal Medicine | DX: G47.33 Obstructive sleep apnea (adult) (pediatric) (principal) | CPT/HCPCS: 95806 ==

== ENCOUNTER 2023-08-08 09:27 | Outpatient (AMB) | payer MEDICARE, MEDICAID, SELFPAY ==
--- NOTE | 2023-08-08 09:42 | A.OFFVIS_ITS ---
Vital Signs 08/08/23 09:50 Height 5 ft Weight 198 lb BMI 38.7 BP 118/70 Blood Pressure Location Lt brachial Position Sitting Pulse 83 Intake Visit Reasons: 6 month follow up GERD Intake Note: Patient 6 month follow up for GERD Patient cc: back pain due kidney stones , GERD is much better with medication. 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 Accompanied by: Self / Same As Patient Allergies ciprofloxacin [From CIPRO] Allergy (Severe, Verified 08/08/23 09:40) SWELLING Penicillins [PENICILLINS] Allergy (Severe, Verified 08/08/23 09:40) SWELLING latex [LATEX] Allergy (Intermediate, Verified 08/08/23 09:40) RASH simvastatin [SIMVASTATIN] Allergy (Intermediate, Verified 08/08/23 09:40) HEADACHE aspirin Allergy (Unknown, Verified 08/08/23 09:40) 'tastes blood metformin Allergy (Unknown, Verified 08/08/23 09:40) diarrhea pravastatin [Pravachol] Allergy (Unknown, Verified 08/08/23 09:40) Unknown tacrolimus Allergy (Unknown, Verified 08/08/23 09:40) Rash atorvastatin [From LIPITOR] Adverse Reaction (Intermediate, Verified 08/08/23 09:40) HEADACHE HPI HPI 6 month follow up GERD: Details: LAST VISIT: GERD (gastroesophageal reflux disease) Postprandial abdominal bloating Constipation Tubular adenoma Plan Upper endoscopy and colonoscopy discussed with patient. Tubular adenoma found and cecum without high-grade dysplasia or carcinoma. Colorectal screening in 7 years, sooner if clinically necessary. Mild chronic gastritis. Patient will continue pantoprazole 20 mg in the morning and famotidine at bedtime. Patient reports that she feels like it helps. Continue avoiding dietary triggers and late night snacking. Staying upright for minimum 3 hours after meals discussed with patient. Continue Dulcolax at bedtime. Patient was encouraged to increase fluid intake and activity to promote better bowel mobility. I will see her in 6 months, sooner if needed basis. Patient is agreeable to this plan and verbalizes understanding of instructions. She was given the opportunity to ask questions and all questions answered. ? Thank you for allowing me to participate in her care Medications Refilled famotidine (Pepcid) 20 mg PO BEDTIME 30 tabs 4RF K21.9 pantoprazole 20 mg PO DAILY 30 tabs 3RF * TODAY'S VISIT Patient is here today for follow-up. Patient reports that her symptoms of acid reflux and dyspepsia has gotten better, however occasionally she will continue to have acid reflux. Patient is asking to get higher dose of both famotidine and pantoprazole. Patient denies any dysphagia or odynophagia. Reports that she is moving her bowels well. Patient is experiencing back pain, is going for lithotripsy next week with her urologist. Patient denies any melena, hematochezia, unintentional weight loss or ribbon like stools. Patient otherwise has good appetite denies any other GI concerning symptoms today [facility] Medical History (Updated 07/17/23 @ 18:21 by You Gallardo MD) Dyspnea Diarrhea Osteopenia Obstruction of kidney Obstructive sleep apnea Renal calculus Type 2 diabetes mellitus with hyperglycemia Pulmonary nodule Hypercholesterolemia COPD (chronic obstructive pulmonary disease) Obesity (BMI 30-39.9) Carpal tunnel syndrome Hypothyroid Surgical History S/P cystoscopy with ureteral stent placement History of cataract surgery History of bladder surgery History of tonsillectomy History of tubal ligation History of right oophorectomy Family History Father CVD (cardiovascular disease) Mother Diabetes Hypertension Heart failure Social History Housing: Apartment Alcohol intake: never Patient Tobacco Use Status: Former Tobacco user Tobacco use type: Cigarette e-Cigarette/Vaping Use: Never Used Second Hand Smoke Exposure: No Current occupational status: disabled Cognitive needs: No Hearing needs: No Vision needs: No Review of Systems Const Denies weight gain and Denies weight loss ENT Reports no additional complaints, Denies dysphagia and Denies odynophagia Card Reports no additional complaints Resp Reports no additional complaints GI Denies abdominal pain, Denies belching, Denies melena, Denies bloating, Denies change in bowel habits, Denies dysphagia, Denies excessive flatus, Denies dyspepsia, Reports heartburn (Occasional), Denies diarrhea, Denies loose stools, Denies nausea, Denies odynophagia and Denies vomiting Musc Reports no additional complaints Neuro Reports no additional complaints Psych Reports no additional complaints Endo Reports no additional complaints Physical Exam Vital Signs: Last Vital Signs Pulse 83 08/08/23 09:50 BP 118/70 08/08/23 09:50 BMI result Body Mass Index 38.7 Const General: healthy appearing, no acute distress and well developed Nutritional Appearance: obese Orientation/consciousness: patient oriented x3 Resp Effort & Inspection: normal respiratory effort, able to speak in complete sentences, no tracheal deviation and symmetric chest movement Auscultation: clear to auscultation bilaterally Cardio Rate: regular rate GI Inspection: Yes normal to inspection, No distended and Yes obesity Palpation (GI): Soft to palpation, not firm, nontender and No hepatosplenomegaly present Auscultation: normal bowel sounds General: Yes no CVA tenderness Back/Spine/Pelvis Back: no CVA tenderness Skin General skin exam: elasticity normal, turgor normal and dry skin Neuro General: patient oriented x3 Psych Appearance: grossly normal Mental Status: mental status grossly normal Assessment & Plan Assessment & Plan (1) GERD (gastroesophageal reflux disease): Code(s): K21.9 - Gastro-esophageal reflux disease without esophagitis Category: Medical Qualifiers: Esophagitis presence: esophagitis presence not specified Qualified Code(s): K21.9 - Gastro-esophageal reflux disease without esophagitis (2) Postprandial abdominal bloating: Code(s): R14.0 - Abdominal distension (gaseous) (3) Constipation: Code(s): K59.00 - Constipation, unspecified Qualifiers: Constipation type: slow transit constipation Qualified Code(s): K59.01 - Slow transit constipation Plan Will increase pantoprazole to 40 mg in the morning and famotidine to 40 mg at bedtime. Patient was encouraged to avoid dietary triggers and late night snacking. Patient will be going for surgery next week. If pain medications given like opioids patient was encouraged to increase fluid intake as well as start stool softeners or MiraLax [id number] to help her move her bowels. Patient will follow-up in our office in 3 months, sooner on as needed basis. She will call our office if she will have any GI concerning symptoms. She is agreeable to this plan and verbalizes understanding of instructions. She was given the opportunity to ask questions and all questions answered. Thank you for allowing me to participate in her care Medications: New pantoprazole take one tablet half an hour before breakfast 40 mg PO DAILY 90 tabs 2RF K21.9 - Gastro-esophageal reflux disease without esophagitis famotidine 40 mg PO BEDTIME 90 tabs 3RF K21.9 - Gastro-esophageal reflux disease without esophagitis Discontinued pantoprazole Discontinued Reason: Doctor's Order 20 mg PO DAILY 30 tabs 3RF famotidine (Pepcid) Discontinued Reason: Doctor's Order 20 mg PO BEDTIME 30 tabs 4RF K21.9 - Gastro-esophageal reflux disease without esophagitis Coding Level of Care Code Est Pt Level 3 (99857) Diagnoses Gastroesophageal reflux disease, unspecified whether esophagitis present K21.9 Esophagitis presence: esophagitis presence not specified Postprandial abdominal bloating R14.0 Slow transit constipation K59.01 Constipation type: slow transit constipation Time Spent (min) 25 Comment 15 minutes spent with patient and additional 10 minutes spent reviewing her records
[2023-08-08 09:50] VITALS: BP 118/70; PULSE 83; BMI 38.7
== END 2023-08-08 09:58 | disposition home or self-care (01) ==
PROVIDERS: PCP Internal Medicine; Visit Provider Nurse Practitioner Family
DX: K21.9 Gastro-esophageal reflux disease without esophagitis (principal); R14.0 Abdominal distension (gaseous); K59.01 Slow transit constipation
CPT/HCPCS: 99213

== ENCOUNTER → 2023-08-08 09:27 | Outpatient (BNVA) | payer MEDICARE, MEDICAID, SELFPAY | PROVIDERS: PCP Internal Medicine; Visit Provider Nurse Practitioner Family | DX: K21.9 Gastro-esophageal reflux disease without esophagitis (principal); R14.0 Abdominal distension (gaseous); K59.01 Slow transit constipation | CPT/HCPCS: 99212 ==

== ENCOUNTER 2023-08-15 13:48 | Outpatient (REF) | payer MEDICARE, MEDICAID, SELFPAY ==
[2023-08-15 11:14] VITALS: PULSE 94; RESP 16; O2SAT 95
--- NOTE | 2023-08-15 14:47 | PFT_ITS ---
Flows: FEV1: 80 % of predicted at 1.61 L FVC: 89 % of predicted at 2.28 L FEV1/FVC: 71 % Bronchodilator response: Absent Volumes: Total lung capacity: 87 % of predicted at 3.81 L Residual volume: 90 % of predicted at 1.46 L Slow vital capacity: 86 % of predicted at 2.35 L Expiratory reserve volume: 58 % of predicted at 0.37 L Diffusion capacity: Normal Impression: No obstructive or restrictive ventilatory defect. No bronchodilator response. Essentially normal pulmonary function test. MTDD
== END 2023-08-15 13:49 | disposition home or self-care (01) ==
LOC: HO.RESP 13:48
PROVIDERS: PCP Internal Medicine; Visit Provider Hospitalist
DX: J44.9 Chronic obstructive pulmonary disease, unspecified (principal)
CPT/HCPCS: 94010; 94640; 94727; 94729

== ENCOUNTER → 2023-08-15 14:47 | Outpatient (BNV) | payer MEDICARE, MEDICAID, SELFPAY | PROVIDERS: PCP Internal Medicine; Visit Provider Internal Medicine Pulmonary Disease | DX: J44.9 Chronic obstructive pulmonary disease, unspecified (principal) | CPT/HCPCS: 94060; 94727; 94729 ==

== ENCOUNTER 2023-08-20 12:46 | Outpatient (AMB) | payer MEDICARE, MEDICAID, SELFPAY ==
--- NOTE | 2023-08-20 13:04 | A.OFFVIS_ITS ---
Vital Signs 08/20/23 13:05 Height 5 ft Weight 199 lb BMI 38.9 BP 130/72 Blood Pressure Location Rt brachial Position Sitting Pulse 86 Pulse Source Pulse Oximeter Pulse Oximetry (%) 96 Oxygen Delivery Method Room Air Intake Visit Reasons: M-let [id number] Intake Note: patient presents for HOLLEY. patient cant take all the pressure in face or face. Allergies ciprofloxacin [From CIPRO] Allergy (Severe, Verified 08/20/23 13:09) SWELLING Penicillins [PENICILLINS] Allergy (Severe, Verified 08/20/23 13:09) SWELLING latex [LATEX] Allergy (Intermediate, Verified 08/20/23 13:09) RASH simvastatin [SIMVASTATIN] Allergy (Intermediate, Verified 08/20/23 13:09) HEADACHE aspirin Allergy (Unknown, Verified 08/20/23 13:09) 'tastes blood metformin Allergy (Unknown, Verified 08/20/23 13:09) diarrhea pravastatin [Pravachol] Allergy (Unknown, Verified 08/20/23 13:09) Unknown tacrolimus Allergy (Unknown, Verified 08/20/23 13:09) Rash atorvastatin [From LIPITOR] Adverse Reaction (Intermediate, Verified 08/20/23 13:09) HEADACHE Medication List - Last Reconciled 08/20/23 by AMTT Zhou [large Depends (pull ups) As directed] albuterol sulfate 90 mcg/actuation (Ventolin HFA) 2 puffs inhalation Q4-6H PRN ammonium lactate 12% topical BID [AUTO PAP mode 6-20 CM H20 humidified AIR As directed] bisacodyl 10 mg PO BEDTIME blood sugar diagnostic (FreeStyle Lite Strips) As directed check the BS QD [BODY WIPES As directed] budesonide-formoterol 80-4.5 mcg/actuation (Symbicort) 2 puffs inhalation BID PRN cholecalciferol (vitamin D3) 50 mcg PO DAILY 90 days disposable gloves (Disposable Latex-Free Gloves) large dupilumab (Dupixent) 300 mg subcut Q2W empagliflozin (Jardiance) 10 mg PO DAILY famotidine 40 mg PO BEDTIME fluticasone propion-salmeterol 115-21 mcg/actuation (Advair HFA) 2 puffs inhalation Q12H 30 days glimepiride 2 mg PO DAILY [incontinence wipes As directed] [Large gloves As directed] levothyroxine 88 mcg PO DAILY loratadine (Allergy Relief (loratadine)) 10 mg PO DAILY pantoprazole 40 mg PO DAILY rosuvastatin 5 mg PO DAILY HPI Comments Details: 67-yr-old female presents for new in-person patient visit for sleep consultation. Pt has a chronic history of HOLLEY, COPD, Obesity. Pt was tried on CPAP > 10 yrs ago, but did not tolertae the CPAP pressure or mask, so returned the machine. More recently, she underwent a f/u HST which showed AHI 9.8/hr, O2 everton 63%, w/ average SpO2 92%, SpO2 < 90% x's 70.6 min and SpO2< 88% x's 37.3 min. PCP initiated an order for APAP [id number]. Pt just recently received a Nuris APAP device w/ nasal pillow mask from [facility]. She states she tried it once, and did not tolerate the PAP pressure. The nasal pillow mask did not seal well as she is edentulous. She also notes she is prone to claustrophobia. She is a restless sleeper, states she cannot sleep on her back as she cannot breathe well in this position. She wakes up frequently to void, she attributes this to increased fluid intake to manage current nephrolithiasis. She does not believe she can use CPAP. States she cannot sleep with a mask on her head. She does not think that she can tolerate an in-lab PAP titration study. She thinks she could sleep w/ supplemental O2 via n/c. She underwent a PFT study a few days ago. She has f/u w/ Dr Worthy, pulmonary, next week. [facility], [facility] Medical History Dyspnea Diarrhea Osteopenia Obstruction of kidney Obstructive sleep apnea Renal calculus Type 2 diabetes mellitus with hyperglycemia Pulmonary nodule Hypercholesterolemia COPD (chronic obstructive pulmonary disease) Obesity (BMI 30-39.9) Carpal tunnel syndrome Hypothyroid Surgical History S/P cystoscopy with ureteral stent placement History of cataract surgery History of bladder surgery History of tonsillectomy History of tubal ligation History of right oophorectomy Family History Father CVD (cardiovascular disease) Mother Diabetes Hypertension Heart failure Social History Housing: Apartment Alcohol intake: never Patient Tobacco Use Status: Former Tobacco user Tobacco use type: Cigarette e-Cigarette/Vaping Use: Never Used Second Hand Smoke Exposure: No Current occupational status: disabled Cognitive needs: No Hearing needs: No Vision needs: No Review of Systems Const All systems reviewed & are unremarkable except as noted in HPI and below Physical Exam Vital Signs: Last Vital Signs Pulse 86 08/20/23 13:05 BP 130/72 08/20/23 13:05 Pulse Ox 96 08/20/23 13:05 Oxygen Delivery Method Room Air 08/20/23 13:05 BMI result Body Mass Index 38.9 Const General: no acute distress Orientation/consciousness: patient oriented x3 Resp Effort & Inspection: able to speak in complete sentences Neuro General: patient oriented x3 Psych Mental Status: mental status grossly normal Speech and movement: Clear speech present Attitude: cooperative Assessment & Plan Assessment & Plan (1) Obstructive sleep apnea: Comment: Can not tolerate CPAP,Sleep study done 06/18/2023 results showing mild obstructive sleep apnea AHI of 9.8 because of hypoxemia advise CPAP therapy with auto PAP mode and pressure setting of 6-20 cm. Code(s): G47.33 - Obstructive sleep apnea (adult) (pediatric) Category: Medical (2) Nocturnal hypoxemia: Code(s): G47.34 - Idiopathic sleep related nonobstructive alveolar hypoventilation Category: Medical Plan Reviewed HST results w/ pt- mild HOLLEY w/ significant nocturnal hypoxemia. AHI 9.8/hr, O2 everton 63%, w/ average SpO2 92%, SpO2 < 90% x's 70.6 min and SpO2< 88% x's 37.3 min. Discussed strategies to acclimate to using PAP tx- such as starting to wear just the mask in the evening (not connected to the mask or tubing), and slowly progressing to turning the CPAP on while awake and not sitting up before trying it at night in bed. or undergoing PAP titration study to identify best mask fit/type and pressure settings for pt. Pt does not feel she can do either of these options. She is not a candidate for mandibular device as she is edentulous. She is not a candidate for Inspire- as HST does not show severe enough degree of sleep apnea. A f/u in-lab sleep study may show more severe degree of HOLLEY, however pt states she cannot do a in-lab sleep study. Pt would like to try home O2. Will defer to Dr Worthy, pulmonology, on this. She is aware of ehr f/u appt w/ him on 08/28. F/u here prn. Pt seen in c/w Dr Asya Clarke. Coding Level of Care Code New Pt Level 3 (89708) Diagnoses Obstructive sleep apnea G47.33 Nocturnal hypoxemia G47.34
[2023-08-20 13:05] VITALS: BP 130/72; PULSE 86; O2SAT 96; BMI 38.9
== END 2023-08-20 14:41 | disposition home or self-care (01) ==
PROVIDERS: PCP Internal Medicine; Visit Provider Nurse Practitioner Family
DX: G47.33 Obstructive sleep apnea (adult) (pediatric) (principal); G47.34 Idiopathic sleep related nonobstructive alveolar hypoventilation
CPT/HCPCS: 99203; 99213

== ENCOUNTER → 2023-08-20 12:46 | Outpatient (BNVA) | payer MEDICARE, MEDICAID, SELFPAY | PROVIDERS: PCP Internal Medicine; Visit Provider Nurse Practitioner Family | DX: G47.33 Obstructive sleep apnea (adult) (pediatric) (principal); G47.34 Idiopathic sleep related nonobstructive alveolar hypoventilation | CPT/HCPCS: 99202 ==

== ENCOUNTER 2023-08-27 08:23 | Outpatient (REF) | payer MEDICARE, MEDICAID, SELFPAY ==
[2023-08-27 08:38] LABS: MANUAL DIFF FLAG NO
[2023-08-27 08:48] LABS: Basophils Absolute Auto 0.1 X10*3/uL (0.0-0.2); Basophils Percent Auto 0.8 % (0-2); Eosinophils Absolute Auto 0.2 X10*3/uL (0.0-0.4); Eosinophils Percent Auto 3.9 % (0-4); Hematocrit 47.5 % (37.0-47.0); Hemoglobin 15.8 g/dl (12.0-16.0); Imm Gran Abs Auto 0.04 X10*3/uL (0.00-0.03); Imm Gran Pct Auto 0.7 % (0.0-0.4); Lymphocytes Absolute Auto 1.5 X10*3/uL (1.2-4.9); Mean Corpuscular HGB Conc 33.3 g/dl (31.0-35.0); Mean Corpuscular Hemoglobin 30.3 pg (27.0-33.0); Mean Corpuscular Volume 91.2 fL (80.0-98.0); Mean Platelet Volume 9.7 fL (9.4-12.3); Monocytes Absolute Auto 0.5 X10*3/uL (0.1-1.2); Monocytes Percent Auto 8.5 % (2-11); Neutrophils Absolute Auto 3.8 x10*3/uL (2.0-8.3); Neutrophils Percent Auto 61.1 % (45-73); Platelet Count 247 X10*3/uL (160-400); Red Blood Count 5.21 X10*6/uL (4.20-5.50); Red Cell Distribution Width 13.1 % (11.0-16.0); White Blood Count 6.1 X10*3/uL (4.8-10.8)
[2023-08-27 08:56] LABS: Estimated Average Glucose 140 mg/dL; Hemoglobin A1c % 6.5 % (<6.0)
[2023-08-27 09:19] LABS: Alanine Aminotransferase 15 U/L (0-31); Albumin Level 4.3 g/dL (3.5-5.0); Alkaline Phosphatase 157 U/L (39-117); Anion Gap 11 (12-20); Aspartate Amino Transferase 15 U/L (5-31); Bilirubin Total 0.8 mg/dL (0.0-1.0); Blood Urea Nitrogen 16 mg/dL (9-16); Calcium 10.3 mg/dL (8.4-10.2); Carbon Dioxide 30 mmol/L (22-29); Chloride 107 mmol/L (96-108); Cholesterol 210 mg/dL (<200); Estimated Glomerular Filt Rate > 60; Glucose Random 157 mg/dL (60-115); HDL Cholesterol 40 mg/dL (>40); LDL Cholesterol Calculated 120 mg/dL (<100); Potassium 4.8 mmol/L (3.3-5.1); Sodium 143 mmol/L (135-145); Total Protein 6.7 g/dL (6.5-8.0); Triglycerides 252 mg/dL (<150)
[2023-08-27 09:20] LABS: Creatinine Urine 84.96 mg/dL
[2023-08-27 09:39] LABS: Free T4 (Free Thyroxine) 1.04 ng/dL (0.71-1.85); Thyroid Stimulating Hormone 1.96 uIU/mL (0.32-4.0); Vitamin D 25-OH Total 37.4 ng/mL (>30)
[2023-08-27 09:47] LABS: Folate 10.6 ng/mL (> or = 4.0); Vitamin B12 < 148 pg/mL (200-900)
== END 2023-08-27 08:24 | disposition home or self-care (01) ==
LOC: HO.LAB 08:23
PROVIDERS: PCP Internal Medicine; Visit Provider Internal Medicine
DX: E11.65 Type 2 diabetes mellitus with hyperglycemia (principal); E78.00 Pure hypercholesterolemia, unspecified; E53.8 Deficiency of other specified B group vitamins
CPT/HCPCS: 36415; 80053; 80061; 82306; 82570; 82607; 82746; 83036; 84439; 84443; 85025

== ENCOUNTER 2023-08-29 09:48 | Outpatient (AMB) | payer MEDICARE, MEDICAID, SELFPAY ==
[2023-08-29 09:53] VITALS: PULSE 89; O2SAT 97; BMI 38.7
--- NOTE | 2023-08-29 09:53 | A.OFFVIS_ITS ---
Vital Signs 08/29/23 09:53 Height 5 ft Weight 198 lb 6.656 oz BMI 38.7 Pulse 89 Pulse Source Pulse Oximeter Pulse Oximetry (%) 97 Oxygen Delivery Method Room Air Intake Visit Reasons: COPD Legal Financial Specialist Required: No Allergies ciprofloxacin [From CIPRO] Allergy (Severe, Verified 08/29/23 09:56) SWELLING Penicillins [PENICILLINS] Allergy (Severe, Verified 08/29/23 09:56) SWELLING latex [LATEX] Allergy (Intermediate, Verified 08/29/23 09:56) RASH simvastatin [SIMVASTATIN] Allergy (Intermediate, Verified 08/29/23 09:56) HEADACHE aspirin Allergy (Unknown, Verified 08/29/23 09:56) 'tastes blood metformin Allergy (Unknown, Verified 08/29/23 09:56) diarrhea pravastatin [Pravachol] Allergy (Unknown, Verified 08/29/23 09:56) Unknown tacrolimus Allergy (Unknown, Verified 08/29/23 09:56) Rash atorvastatin [From LIPITOR] Adverse Reaction (Intermediate, Verified 08/29/23 09:56) HEADACHE HPI Comments Details: The patient is a 67 year woman with a known history of COPD and also obstructive sleep apnea. The patient apparently has been having increasing dyspnea on exertion. She has been on Symbicort for some time. She takes it twice a day. She has a rescue inhaler that she rarely needs. 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 The patient has not had any pulmonary function studies to review. On recent imaging study either. She is a former smoker though she stop smoking about 15 years ago therefore no longer qualified for the lung cancer screening program. In regards to the sleep apnea she is not on CPAP therapy. That was many years ago she did tried CPAP at the pressures are too high. She states about 12 years ago. She therefore return the machine. She continues to have daytime drowsiness with an elevated [place] score of 10/24. The patient is reluctant to having sleep study this time. She is agreeable to having overnight oximetry though to make sure that she is not having any significant hypoxia and which become more of a priority. She would like to wait until the school years over to have testing. Therefore have her return in 6 months with PFTs and chest x-ray. If however her overnight oximetry is abnormal I will call her for further assessment. 08/29/2023 the patient is here for pulmonary follow-up visit. The patient overall has been doing okay. Still complaining of dyspnea on exertion. [id number] severity. There is a component of deconditioning. The patient did have pulmonary function studies. She does appears to have a [id number] obstruction. This consistent with asthma COPD overlap syndrome . The patient also is undergoing multiple surgical procedures because of frequent kidney stones. She recently had a procedure that that cancel because of preoperative clearance. At this point will have her go for an overnight oximetry to see if she has any evidence of nocturnal hypoxia and therefore may benefit from nocturnal oxygen supplementation. Patient also will continue her respiratory therapy as prescribed. We did talk about pulmonary rehabilitation. Be hard for her to get her from [place]. She will look into the online pulmonary rehabilitation at this time. When she returns we can again discuss the possibility of in person rehab. Also to note the patient did have a chest x-ray back the winter of 2023 without any acute disease. [facility] Medical History Dyspnea Diarrhea Osteopenia Obstruction of kidney Obstructive sleep apnea Renal calculus Type 2 diabetes mellitus with hyperglycemia Pulmonary nodule Hypercholesterolemia COPD (chronic obstructive pulmonary disease) Obesity (BMI 30-39.9) Carpal tunnel syndrome Hypothyroid Surgical History S/P cystoscopy with ureteral stent placement History of cataract surgery History of bladder surgery History of tonsillectomy History of tubal ligation History of right oophorectomy Family History Father CVD (cardiovascular disease) Mother Diabetes Hypertension Heart failure Social History Housing: Apartment Alcohol intake: never Patient Tobacco Use Status: Former Tobacco user Tobacco use type: Cigarette e-Cigarette/Vaping Use: Never Used Second Hand Smoke Exposure: No Current occupational status: disabled Cognitive needs: No Hearing needs: No Vision needs: No Review of Systems Const Reports daytime sleepiness, Reports difficulty sleeping, Reports snoring, Denies weight gain and Denies weight loss ENT Reports no additional complaints Card Reports no additional complaints and Reports dyspnea on exertion Resp Reports dyspnea on exertion, Reports snoring and Denies wheezing GI Denies abdominal pain Reports no additional complaints Musc Reports no additional complaints Skin/Breast Denies rash Neuro Reports no additional complaints Psych Reports no additional complaints Endo Reports no additional complaints Ketan/Lymph Denies lymphadenopathy Aller/Immun Denies wheezing Physical Exam Vital Signs: Last Vital Signs Pulse 89 08/29/23 09:53 Pulse Ox 97 08/29/23 09:53 Oxygen Delivery Method Room Air 08/29/23 09:53 BMI result Body Mass Index 38.7 Const General: healthy appearing Orientation/consciousness: patient oriented x3 HEENT Head: Yes normal to inspection and Yes normocephalic Eyes General: appearance normal, both eyes and all related structures Neck Neck: Yes normal visual inspection, Yes full ROM and Yes trachea midline Chest Chest palpation & inspection: normal inspection of the chest Resp Effort & Inspection: normal respiratory effort, able to speak in complete sentences and symmetric chest movement Auscultation: diminished lung sounds Cardio Rate: regular rate Heart sounds: S1 normal heart sound present and S2 normal heart sound present GI Palpation (GI): Soft to palpation Auscultation: normal bowel sounds Skin General skin exam: elasticity normal Neuro General: patient oriented x3 Psych Appearance: grossly normal Mental Status: mental status grossly normal Assessment & Plan Assessment & Plan (1) COPD (chronic obstructive pulmonary disease): Comment: March 2017 PFT Code(s): J44.9 - Chronic obstructive pulmonary disease, unspecified Category: Medical Qualifiers: COPD type: chronic bronchitis Chronic bronchitis type: simple Qualified Code(s): J41.0 - Simple chronic bronchitis (2) Dyspnea: Code(s): R06.00 - Dyspnea, unspecified Category: Medical Qualifiers: Dyspnea type: dyspnea on exertion Qualified Code(s): R06.09 - Other forms of dyspnea Plan continue Symbicort JASPREET as needed overnight oximetry F/U 6 months Orders: Orders Overnight Pulse Oximetry 08/29/23 Coding Level of Care Code Est Pt Level 4 (60201) Diagnoses Simple chronic bronchitis J41.0 COPD type: chronic bronchitis Chronic bronchitis type: simple Dyspnea on exertion R06.09 Dyspnea type: dyspnea on exertion Time Spent (min) 16
== END 2023-08-29 10:18 | disposition home or self-care (01) ==
PROVIDERS: PCP Internal Medicine; Visit Provider Hospitalist
DX: J41.0 Simple chronic bronchitis (principal); R06.09 Other forms of dyspnea
CPT/HCPCS: 99214

== ENCOUNTER → 2023-08-29 09:48 | Outpatient (BNVA) | payer MEDICARE, MEDICAID, SELFPAY | PROVIDERS: PCP Internal Medicine; Visit Provider Hospitalist | DX: J41.0 Simple chronic bronchitis (principal); R06.09 Other forms of dyspnea | CPT/HCPCS: 99212 ==

== ENCOUNTER 2023-09-03 12:25 | Outpatient (AMB) | payer MEDICARE, MEDICAID, SELFPAY ==
--- NOTE | 2023-09-03 12:41 | A.OFFVIS_ITS ---
Intake Vital Signs 09/03/23 12:42 Height 5 ft Weight 199 lb BMI 38.9 BP 118/70 Blood Pressure Location Lt brachial Position Sitting Pulse 73 Pulse Source Pulse Oximeter Pulse Oximetry (%) 97 Oxygen Delivery Method Room Air Intake Visit Reasons: AWV Allergies ciprofloxacin [From CIPRO] Allergy (Severe, Verified 09/03/23 12:43) SWELLING Penicillins [PENICILLINS] Allergy (Severe, Verified 09/03/23 12:43) SWELLING latex [LATEX] Allergy (Intermediate, Verified 09/03/23 12:43) RASH simvastatin [SIMVASTATIN] Allergy (Intermediate, Verified 09/03/23 12:43) HEADACHE aspirin Allergy (Unknown, Verified 09/03/23 12:43) 'tastes blood metformin Allergy (Unknown, Verified 09/03/23 12:43) diarrhea pravastatin [Pravachol] Allergy (Unknown, Verified 09/03/23 12:43) Unknown tacrolimus Allergy (Unknown, Verified 09/03/23 12:43) Rash atorvastatin [From LIPITOR] Adverse Reaction (Intermediate, Verified 09/03/23 12:43) HEADACHE rosuvastatin Adverse Reaction (Intermediate, Unverified 09/03/23 13:02) Headache Medication List - Last Reconciled 09/03/23 by You Gallardo MD [large Depends (pull ups) As directed] albuterol sulfate 90 mcg/actuation (Ventolin HFA) 2 puffs inhalation Q4-6H PRN ammonium lactate 12% topical BID [AUTO PAP mode 6-20 CM H20 humidified AIR As directed] bisacodyl 10 mg PO BEDTIME blood sugar diagnostic (FreeStyle Lite Strips) As directed check the BS QD [BODY WIPES As directed] cholecalciferol (vitamin D3) 50 mcg PO DAILY 90 days cyanocobalamin (vitamin B-12) 1,000 mcg PO DAILY disposable gloves (Disposable Latex-Free Gloves) large dupilumab (Dupixent) 300 mg subcut Q2W empagliflozin (Jardiance) 10 mg PO DAILY famotidine 40 mg PO BEDTIME fluticasone propion-salmeterol 115-21 mcg/actuation (Advair HFA) 2 puffs inhalation BID fluticasone propion-salmeterol 115-21 mcg/actuation (Advair HFA) 2 puffs inhalation Q12H 30 days glimepiride 2 mg PO DAILY [incontinence wipes As directed] [Large gloves As directed] levothyroxine 88 mcg PO DAILY loratadine (Allergy Relief (loratadine)) 10 mg PO DAILY pantoprazole 40 mg PO DAILY HPI AWV HPI Details 67-year-old obese female with multiple m edical problems can not tolerate obstructive sleep apnea CPAP, nocturnal hypoxemia diabetes mellitus hypercholesterolemia COPD hypothyroidism coming in for her annual well visit. Last seen in 06/11/2023. Patient's colonoscopy was last done in 01/10/2023, bone density done 04/12/2021 mammograms up-to-date. Patient follows up with Pulmonary for the COPD Symbicort and advised overnight oximetry. Patient has also followed up with Gastroenterology for the GERD increase pantoprazole to 40 mg in the morning famotidine 40 mg at bedtime received also note from urology having had a CT scan of the abdomen and pelvis noted 5 mm nonobstructing left renal calculus this was done in June. will have a procedure for the for removal tomorrow. decline using hearing aid [facility] Medical History Dyspnea Diarrhea Osteopenia Obstruction of kidney Obstructive sleep apnea Renal calculus Type 2 diabetes mellitus with hyperglycemia Pulmonary nodule Hypercholesterolemia COPD (chronic obstructive pulmonary disease) Obesity (BMI 30-39.9) Carpal tunnel syndrome Hypothyroid Surgical History S/P cystoscopy with ureteral stent placement History of cataract surgery History of bladder surgery History of tonsillectomy History of tubal ligation History of right oophorectomy Family History Father CVD (cardiovascular disease) Mother Diabetes Hypertension Heart failure Social History (Updated 09/03/23 @ 13:07 by You Gallardo MD) Housing: Apartment Alcohol intake: never Patient Tobacco Use Status: Former Tobacco user Tobacco use type: Cigarette Years Smoked: 2005 e-Cigarette/Vaping Use: Never Used Second Hand Smoke Exposure: No Current occupational status: disabled Cognitive needs: No Hearing needs: No Vision needs: No Questionnaire Medicare Wellness Checkup [age] What gender do you identify with?: female During the past 4 weeks, how much have you been bothered by emotional problems such as feeling anxious, depressed, irritable, sad or downhearted, and blue?: quite a bit During the past 4 weeks, has your physical & emotional health limited your social activities with family, friends, neighbors, or groups?: not at all During the past 4 weeks, how much bodily pain have you generally had?: severe pain During the past 4 weeks, was someone available to help you if you needed & wanted help?: yes, as much as I wanted During the past 4 weeks, what was the hardest physical activity you could do for at least 2 minutes?: very light Can you get to places out of walking distance without help? (For eg., can you travel alone on buses, taxis or drive your car?): Yes Can you go shopping for groceries or clothes without someone's help?: Yes Can you prepare your own meals?: Yes Can you do your housework without help?: Yes Because of any health problems, do you need the help of another person with your personal care needs such as eating, bathing, dressing or getting around the house?: Yes Can you handle your own money without help?: Yes During the past 4 weeks, how would you rate your health in general?: good During the past 4 weeks how have things been going for you?: good & bad parts about equal Are you having difficulties driving your car?: no Do you always fasten your seat belt when you are in a car?: yes, usually During past 4 weeks, have you been bothered by the following: never: Falling or dizzy when standing up, Sexual problems?, Trouble eating well?, Teeth or denture problems? and Problems using the telephone? and always: Tiredness or fatigue? Have you fallen 2 or more times in the past year?: No Are you afraid of falling?: Yes Are you a smoker?: no During the past 4 weeks, how many drinks of wine, beer, or other alcoholic beverages did you have?: no alcohol at all Do you exercise for about 20 minutes 3 or more times a week?: no, I usually do not exercise this much Have you been given information to help with the following?: no: Hazards in your house that might hurt you? and no: Keeping track of your medications? How often do you have trouble taking medicines the way you have been told to take them?: I always take medicine as prescribed How confident are you that you can control & manage most of your health problems?: very confident What is your race?: White PHQ-9 Over the last 2 weeks, how often have you been bothered by any of the following problems? 1. Little interest or pleasure in doing things: not at all 2. Feeling down, depressed, or hopeless: not at all 3. Trouble falling or staying asleep, or sleeping too much: not at all 4. Feeling tired or having little energy: not at all 5. Poor appetite or overeating: not at all 6. Feeling bad about yourself - or that you are a failure or have let yourself or your family down: not at all 7. Trouble concentrating on things, such as reading the newspaper or watching television: not at all 8. Moving or speaking so slowly that other people could have noticed. Or the opposite - being so fidgety or restless that you have been moving around a lot more than usual: not at all 9. Thoughts that you would be better off or of hurting yourself in some way: not at all Total score: 0 Depression Screening Interpretation: Negative Depression Screening Done: Yes 42149 - PHQ-9 Billing: Yes Source: Developed by Drs. Jeromy Miller, Chato Nagy and colleagues, with an educational angelica from [employer]. Thrive Questionnaire Date Thrive assessed: 05/28/23 NATIVIDAD-7 AMB Questionnaire NATIVIDAD-7 Date NATIVIDAD - 7 assessed: 05/28/23 Source: Developed by Kristin Christine Kurt Kroenke and colleagues, with an educational angelica from [employer]. Review of Systems Const Denies poor appetite and Denies weakness Eyes Denies no additional complaints ENT Reports Normal hearing present, Denies dizziness, Denies nasal congestion, Denies tinnitus and Denies sore throat Card Denies chest pain, Denies syncope, Denies rapid heart rate and Denies dyspnea Resp Denies cough and Denies dyspnea GI Denies change in stool character, Reports constipation, Denies diarrhea, Denies nausea and Denies vomiting Denies urinary frequency, Denies difficulty voiding and Denies dysuria Neuro Reports Normal hearing present, Denies confusion, Denies dizziness, Denies syncope and Denies weakness Psych Denies confusion Physical Exam Vital Signs: Last Vital Signs Pulse 73 09/03/23 12:42 BP 118/70 09/03/23 12:42 Pulse Ox 97 09/03/23 12:42 Oxygen Delivery Method Room Air 09/03/23 12:42 BMI result Body Mass Index 38.9 Const General: No confusion Orientation/consciousness: No confusion HEENT Head: Yes normocephalic Ears: external ears normal and TM's normal bilaterally Face and sinus: Yes normal facial exam Mouth: moist mucous membranes Throat: Yes tonsils normal Eyes Conjunctivae: conjunctivae normal Pupils: Equal, round and reactive pupils present and Pupil accommodation reflex normal Direct Ophthalmoscopy: normal light reflex Neck Neck: No lymphadenopathy Thyroid: Thyroid normal Chest Chest palpation & inspection: normal inspection of the chest Resp Effort & Inspection: normal respiratory effort and no audible wheezes Auscultation: clear to auscultation bilaterally, no crackles, no wheezes and lung sounds not diminished Cardio Rate: regular rate Rhythm: regular rhythm Peripheral pulses: radial pulses present and dorsalis pedis present GI Palpation (GI): no masses Auscultation: normal bowel sounds and normoactive bowel sounds Rectal Exam - Female: deferred Skin General skin exam: no rashes or lesions noted Rashes: no rashes Neuro General: No confusion Cranial nerves: Yes Equal, round and reactive pupils present and Yes Normal hearing present Cognition (Neuro): normal cognition Gait exam (Neuro): Normal gait present Motor exam (neuro): 5/5 motor strength present throughout Deep tendon reflexes (DTR's): Right brachioradialis reflex intensity grade: 2+, Left brachioradialis reflex intensity grade: 2+, Right patellar reflex intensity grade: 2+ and Left patellar reflex intensity grade: 2+ Extrem General: No edema Assessment & Plan Assessment & Plan (1) Medicare annual wellness visit, subsequent: Code(s): Z00.00 - Encounter for general adult medical examination without abnormal findings Plan: Patient is advised to eat healthy, keep well hydrated, keep active and have adequate sleep. (2) Obstructive sleep apnea: Comment: Can not tolerate CPAP,Sleep study done 06/18/2023 results showing mild obstructive sleep apnea AHI of 9.8 because of hypoxemia advise CPAP therapy with auto PAP mode and pressure setting of 6-20 cm. Code(s): G47.33 - Obstructive sleep apnea (adult) (pediatric) Plan: Patient has been seen by Neurology and Pulmonary trying to workup some treatment. (3) Nocturnal hypoxemia: Code(s): G47.34 - Idiopathic sleep related nonobstructive alveolar hypoventilation Plan: Overnight oximetry requested by Pulmonary (4) GERD (gastroesophageal reflux disease): Code(s): K21.9 - Gastro-esophageal reflux disease without esophagitis Qualifiers: Esophagitis presence: esophagitis presence not specified Qualified Code(s): K21.9 - Gastro-esophageal reflux disease without esophagitis Plan: Avoid the foods that causes that usually spicy foods, tomato products, juices, coffee, soda and foods that your sensitive to. After eating do not lie down, allow 3-4 hours before in lie down. And keep the head of bed above 30 degrees to avoid the acid from going up. (5) Osteoporosis: Comment: March 2021 Code(s): M81.0 - Age-related osteoporosis without current pathological fracture Qualifiers: Osteoporosis type: age-related Presence of current pathological fracture: unspecified Qualified Code(s): M81.0 - Age-related osteoporosis without current pathological fracture Plan: Reminded about bone density discussed about calcium vitamin-D (6) Type 2 diabetes mellitus with hyperglycemia: Comment: Dr. Barfield Code(s): E11.65 - Type 2 diabetes mellitus with hyperglycemia Qualifiers: Diabetes mellitus terminal block assembler insulin use: without terminal block assembler use Qualified Code(s): E11.65 - Type 2 diabetes mellitus with hyperglycemia Plan: Decrease the amount of carbohydrate intake, pasta, bread, rice and potatoes are all sugar and that is aside from all the sweet stuff, remember that fruits are good but they are Sweet also. Hemoglobin A1c goal of less than 7.0 presently taking Jardiance 10 mg once a day glimepiride 2 mg once a day (7) Hypercholesterolemia: Code(s): E78.00 - Pure hypercholesterolemia, unspecified Plan: Avoid fried foods, chicken skin, eggs, butter margarine, pastries and meat. Be it pork or beef they have a lot of cholesterol LDL goal of less than 100 and triglyceride of less than 150 patient is on rosuvastatin 5 mg once a day (8) COPD (chronic obstructive pulmonary disease): Comment: March 2017 PFT Code(s): J44.9 - Chronic obstructive pulmonary disease, unspecified Qualifiers: COPD type: chronic bronchitis Chronic bronchitis type: simple Qualified Code(s): J41.0 - Simple chronic bronchitis Plan: Continue with Symbicort and short-acting albuterol (9) Obesity (BMI 30-39.9): Code(s): E66.9 - Obesity, unspecified Plan: Diet and exercise (10) Hypothyroid: Code(s): E03.9 - Hypothyroidism, unspecified Qualifiers: Hypothyroidism type: acquired Qualified Code(s): E03.9 - Hypothyroidism, unspecified Plan: Continue with thyroid medication (11) Renal calculus: Comment: March 2019 bladder tumor, cystoscopy with stent placement January 2020, right ureteroscopy with stent placement September 2020, right lithotripsy August 2021, CT scan August 2022 bilateral renal calculi Left renal calculi June 2023 Code(s): N20.0 - Calculus of kidney Plan: Increase oral fluids (12) Tinea pedis: Code(s): B35.3 - Tinea pedis Qualifiers: Laterality: left Qualified Code(s): B35.3 - Tinea pedis Plan: Antifungal cream sent Medications: New clotrimazole 1% (Athlete's Foot (clotrimazole)) 1 appl topical BID 45 grams 1RF 4 weeks B35.3 - Tinea pedis cyanocobalamin (vitamin B-12) once a week x 4 weeks then once a month 1,000 mcg subcut QWEEK 10 mL 3RF 12 weeks E53.8 - Deficiency of other specified B group vitamins semaglutide (Ozempic) for 4 weeks 0.25 mg (0.368 mL) subcut QWEEK 1.84 mL 2RF 30 days E11.65 - Type 2 diabetes mellitus with hyperglycemia insulin syringe-needle U-100 (BD Insulin Syringe Ultra-Fine) As directed 6 ea 3RF E53.8 - Deficiency of other specified B group vitamins Quality Reporting (2019) Depression/Bipolar (159/160/161/177) PHQ-9: Total score: 0 Coding Level of Care Code Medicare Subsequent (G0439) Diagnoses Medicare annual wellness visit, subsequent Z00.00 Obstructive sleep apnea G47.33 Nocturnal hypoxemia G47.34 Gastroesophageal reflux disease, unspecified whether esophagitis present K21.9 Esophagitis presence: esophagitis presence not specified Age related osteoporosis, unspecified pathological fracture presence M81.0 Osteoporosis type: age-related Presence of current pathological fracture: unspecified Type 2 diabetes mellitus with hyperglycemia, without long-term current use of i nsulin E11.65 Diabetes mellitus terminal block assembler insulin use: without mcfp use Hypercholesterolemia E78.00 Simple chronic bronchitis J41.0 COPD type: chronic bronchitis Chronic bronchitis type: simple Obesity (BMI 30-39.9) E66.9 Acquired hypothyroidism E03.9 Hypothyroidism type: acquired Renal calculus N20.0 Tinea pedis of left foot B35.3 Laterality: left
[2023-09-03 12:42] VITALS: BP 118/70; PULSE 73; O2SAT 97; BMI 38.9
== END 2023-09-03 13:35 | disposition home or self-care (01) ==
PROVIDERS: PCP Internal Medicine; Visit Provider Internal Medicine
DX: Z00.00 Encounter for general adult medical examination without abnormal findings (principal); E11.65 Type 2 diabetes mellitus with hyperglycemia; J41.0 Simple chronic bronchitis; G47.33 Obstructive sleep apnea (adult) (pediatric); G47.34 Idiopathic sleep related nonobstructive alveolar hypoventilation; K21.9 Gastro-esophageal reflux disease without esophagitis; M81.0 Age-related osteoporosis without current pathological fracture; E78.00 Pure hypercholesterolemia, unspecified; E66.9 Obesity, unspecified; E03.9 Hypothyroidism, unspecified; N20.0 Calculus of kidney; B35.3 Tinea pedis
CPT/HCPCS: G0439

== ENCOUNTER 2023-12-29 10:10 | Outpatient (AMB) | payer MEDICARE, MEDICAID, SELFPAY ==
[2023-12-29 10:15] VITALS: BP 134/70; PULSE 81; O2SAT 97; BMI 38.5
--- NOTE | 2023-12-29 10:15 | A.OFFVIS_ITS ---
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: No Allergies ciprofloxacin [From CIPRO] Allergy (Severe, Verified 12/29/23 10:18) SWELLING Penicillins [PENICILLINS] Allergy (Severe, Verified 12/29/23 10:18) SWELLING latex [LATEX] Allergy (Intermediate, Verified 12/29/23 10:18) RASH simvastatin [SIMVASTATIN] Allergy (Intermediate, Verified 12/29/23 10:18) HEADACHE aspirin Allergy (Unknown, Verified 12/29/23 10:18) 'tastes blood metformin Allergy (Unknown, Verified 12/29/23 10:18) diarrhea pravastatin [Pravachol] Allergy (Unknown, Verified 12/29/23 10:18) Unknown tacrolimus Allergy (Unknown, Verified 12/29/23 10:18) Rash atorvastatin [From LIPITOR] Adverse Reaction (Intermediate, Verified 12/29/23 10:18) HEADACHE rosuvastatin Adverse Reaction (Intermediate, Unverified 12/29/23 10:18) Headache HPI Comments Details: The patient is a 68 year woman with a known history of COPD and also obstructive sleep apnea. The patient apparently has been having increasing dyspnea on exertion. She has been on Symbicort for some time. She takes it twice a day. She has a rescue inhaler that she rarely needs. 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 The patient has not had any pulmonary function studies to review. On recent imaging study either. She is a former smoker though she stop smoking about 15 years ago therefore no longer qualified for the lung cancer screening program. In regards to the sleep apnea she is not on CPAP therapy. That was many years ago she did tried CPAP at the pressures are too high. She states about 12 years ago. She therefore return the machine. She continues to have daytime drowsiness with an elevated Marshall score of 10/24. The patient is reluctant to having sleep study this time. She is agreeable to having overnight oximetry though to make sure that she is not having any significant hypoxia and which become more of a priority. She would like to wait until the school years over to have testing. Therefore have her return in 6 months with PFTs and chest x-ray. If however her overnight oximetry is abnormal I will call her for further assessment. 08/29/2023 the patient is here for pulmonary follow-up visit. The patient overall has been doing okay. Still complaining of dyspnea on exertion. [id number] severity. There is a component of deconditioning. The patient did have pulmonary function studies. She does appears to have a [id number] obstruction. This consistent with asthma COPD overlap syndrome. The patient also is undergoing multiple surgical procedures because of frequent kidney stones. She recently had a procedure that that cancel because of preoperative clearance. At this point will have her go for an overnight oximetry to see if she has any evidence of nocturnal hypoxia and therefore may benefit from nocturnal oxygen supplementation. Patient also will continue her respiratory therapy as prescribed. We did talk about pulmonary rehabilitation. Be hard for her to get her from [place]. She will look into the online pulmonary rehabilitation at this time. When she returns we can again discuss the possibility of in person rehab. Also to note the patient did have a chest x-ray back the winter without any acute disease. 12/29/2023 the patient is here for a pulmonary follow-up visit. Overall she is doing very well. She continues use her respiratory medications as prescribed. She has not had any recent flare-ups. We did look at her last PFTs demonstrating mild COPD. The patient also has been sleeping with the oxygen. The oxygen therapy has been affecting beneficial. She needs to get supplies from her [employer]. She will give him a call. In the meantime the patient also is practicing positional sleep therapy for sleep apnea. She needs to sleep on her prone position left side down. She is aware this. In addition to that the patient does stay active. Her last imaging study we did personally review her x-ray from 06/11/2023 demonstrating no acute disease. The patient otherwise will follow-up in a year's time. If she has any issues prior to that she will call for an earlier assessment. [facility] Medical History Dyspnea Diarrhea Osteopenia Obstruction of kidney Obstructive sleep apnea Renal calculus Type 2 diabetes mellitus with hyperglycemia Pulmonary nodule Hypercholesterolemia COPD (chronic obstructive pulmonary disease) Obesity (BMI 30-39.9) Carpal tunnel syndrome Hypothyroid Surgical History S/P cystoscopy with ureteral stent placement History of cataract surgery History of bladder surgery History of tonsillectomy History of tubal ligation History of right oophorectomy Family History Father CVD (cardiovascular disease) Mother Diabetes Hypertension Heart failure Social History (Updated 09/03/23 @ 13:07 by You Gallardo MD) Housing: Apartment Alcohol intake: never Patient Tobacco Use Status: Former Tobacco user Tobacco use type: Cigarette Years Smoked: 2005 e-Cigarette/Vaping Use: Never Used Second Hand Smoke Exposure: No Current occupational status: disabled Cognitive needs: No Hearing needs: No Vision needs: No Review of Systems Const Reports daytime sleepiness, Reports difficulty sleeping, Reports snoring, Denies weight gain and Denies weight loss ENT Reports no additional complaints Card Reports no additional complaints and Reports dyspnea on exertion Resp Reports dyspnea on exertion, Reports snoring and Denies wheezing GI Denies abdominal pain Reports no additional complaints Musc Reports no additional complaints Skin/Breast Denies rash Neuro Reports no additional complaints Psych Reports no additional complaints Endo Reports no additional complaints Ketan/Lymph Denies lymphadenopathy Aller/Immun Denies wheezing Physical Exam Vital Signs: Last Vital Signs Pulse 81 12/29/23 10:15 BP 134/70 12/29/23 10:15 Pulse Ox 97 12/29/23 10:15 Oxygen Delivery Method Room Air 12/29/23 10:15 BMI result Body Mass Index 38.5 Const General: healthy appearing Orientation/consciousness: patient oriented x3 HEENT Head: Yes normal to inspection and Yes normocephalic Eyes General: appearance normal, both eyes and all related structures Neck Neck: Yes normal visual inspection, Yes full ROM and Yes trachea midline Chest Chest palpation & inspection: normal inspection of the chest Resp Effort & Inspection: normal respiratory effort, able to speak in complete sentences and symmetric chest movement Auscultation: diminished lung sounds Cardio Rate: regular rate Heart sounds: S1 normal heart sound present and S2 normal heart sound present GI Palpation (GI): Soft to palpation Auscultation: normal bowel sounds Skin General skin exam: elasticity normal Neuro General: patient oriented x3 Psych Appearance: grossly normal Mental Status: mental status grossly normal Assessment & Plan Assessment & Plan (1) COPD (chronic obstructive pulmonary disease): Comment: March 2017 PFT Code(s): J44.9 - Chronic obstructive pulmonary disease, unspecified Category: Medical Qualifiers: COPD type: chronic bronchitis Chronic bronchitis type: simple Qualified Code(s): J41.0 - Simple chronic bronchitis (2) Dyspnea: Code(s): R06.00 - Dyspnea, unspecified Category: Medical Qualifiers: Dyspnea type: dyspnea on exertion Qualified Code(s): R06.09 - Other forms of dyspnea Plan continue Symbicort JASPREET as needed oxygen at night 2L F/U 6 months Coding Level of Care Code Est Pt Level 4 (76438) Diagnoses Simple chronic bronchitis J41.0 COPD type: chronic bronchitis Chronic bronchitis type: simple Dyspnea on exertion R06.09 Dyspnea type: dyspnea on exertion Time Spent (min) 16
== END 2023-12-29 10:31 | disposition home or self-care (01) ==
PROVIDERS: PCP Internal Medicine; Visit Provider Hospitalist
DX: J41.0 Simple chronic bronchitis (principal); R06.09 Other forms of dyspnea
CPT/HCPCS: 99214

== ENCOUNTER → 2023-12-29 10:10 | Outpatient (BNVA) | payer MEDICARE, MEDICAID, SELFPAY | PROVIDERS: PCP Internal Medicine; Visit Provider Hospitalist | DX: J41.0 Simple chronic bronchitis (principal); G47.33 Obstructive sleep apnea (adult) (pediatric); R06.09 Other forms of dyspnea; Z99.81 Dependence on supplemental oxygen | CPT/HCPCS: 99212 ==

== ENCOUNTER 2024-01-22 09:50 | Outpatient (AMB) | payer MEDICARE, MEDICAID, SELFPAY ==
--- NOTE | 2024-01-22 10:09 | MHC.PC.OV ---
Vital Signs 01/22/24 10:11 Height 5 ft Weight 194 lb 4 oz BMI 37.9 BP 100/68 Blood Pressure Location Lt brachial Position Sitting Pulse 65 Pulse Source Pulse Oximeter Pulse Oximetry (%) 98 Oxygen Delivery Method Room Air Intake Visit Reasons: DM Follow Up Intake Note: Patient is here to follow up on DM. 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 Required: No President Ceo & Founder: Not Required per policy Accompanied by: Self / Same As Patient Allergies ciprofloxacin [From CIPRO] Allergy (Severe, Verified 01/22/24 10:11) SWELLING Penicillins [PENICILLINS] Allergy (Severe, Verified 01/22/24 10:11) SWELLING latex [LATEX] Allergy (Intermediate, Verified 01/22/24 10:11) RASH simvastatin [SIMVASTATIN] Allergy (Intermediate, Verified 01/22/24 10:11) HEADACHE aspirin Allergy (Unknown, Verified 01/22/24 10:11) 'tastes blood metformin Allergy (Unknown, Verified 01/22/24 10:11) diarrhea pravastatin [Pravachol] Allergy (Unknown, Verified 01/22/24 10:11) Unknown tacrolimus Allergy (Unknown, Verified 01/22/24 10:11) Rash atorvastatin [From LIPITOR] Adverse Reaction (Intermediate, Verified 01/22/24 10:11) HEADACHE rosuvastatin Adverse Reaction (Intermediate, Verified 01/22/24 10:11) Headache Tobacco use date assessed: 01/22/24 Fall risk assessment: No Falls in past year Last assessed Fall Risk: 01/22/24 Dental Screening Dental Screen Date: 05/28/23 HPI DM Follow Up HPI Details 68-year-old obese female with diabetes mellitus obstructive sleep apnea GERD COPD hypothyroidism last seen in August 2023. Patient had a colonoscopy done in December 2017 with tubular adenoma last bone density was 2021 mammogram is up-to-date. Review of the notes follows up with Pulmonary in December for COPD doing positional therapy for the sleep apnea does have oxygen at night. For the COPD Symbicort and short-acting beta agonist. Patient also has met with Urology in August for the nephrolithiasis and had lithotripsy done left but unable to locate the stone in the kidney or in the proximal ureter. CT scan done October 06 2023 showed 2 punctate calculi mid to lower pole of the right kidney and the 6 mm in the mid left kidney no hydronephrosis. COUNTS INCLUDE 234 BEDS AT THE [facility] Medical History Dyspnea Diarrhea Osteopenia Obstruction of kidney Obstructive sleep apnea Renal calculus Type 2 diabetes mellitus with hyperglycemia Pulmonary nodule Hypercholesterolemia COPD (chronic obstructive pulmonary disease) Obesity (BMI 30-39.9) Carpal tunnel syndrome Hypothyroid Surgical History S/P cystoscopy with ureteral stent placement History of cataract surgery History of bladder surgery History of tonsillectomy History of tubal ligation History of right oophorectomy Family History Father CVD (cardiovascular disease) Mother Diabetes Hypertension Heart failure Social History Housing: Apartment Alcohol intake: never Patient Tobacco Use Status: Former Tobacco user Tobacco use type: Cigarette Years Smoked: 2005 e-Cigarette/Vaping Use: Never Used Second Hand Smoke Exposure: No service: No Current occupational status: disabled Cognitive needs: No Hearing needs: No Vision needs: No Questionnaire Thrive Questionnaire Date Thrive assessed: 05/28/23 NATIVIDAD-7 AMB Questionnaire NATIVIDAD-7 Date NATIVIDAD - 7 assessed: 05/28/23 Source: Developed by Drs. Jeromy Miller, Kristin Vargas, Chato Wild and colleagues, with an educational angelica from [employer]. Physical exam (Primary Care) Vital Signs: Last Vital Signs Pulse 65 01/22/24 10:11 BP 100/68 01/22/24 10:11 Pulse Ox 98 01/22/24 10:11 Oxygen Delivery Method Room Air 01/22/24 10:11 BMI result Body Mass Index 37.9 Tobacco/Smoking Status: Tobacco use Status Tobacco use date assessed 01/22/24 01/22/24 10:18 Patient Tobacco Use Status Former Tobacco user 01/22/24 10:18 Tobacco use type Cigarette 01/22/24 10:18 e-Cigarette/Vaping Use Never Used 01/22/24 10:18 Thrive Assessment: Date of Thrive Assessment Date Thrive assessed 05/28/23 01/22/24 10:18 Const General: alert; No acute distress Eyes Conjunctivae: conjunctivae normal Resp Auscultation: clear to auscultation bilaterally Cardio Rate: regular rate Rhythm: regular rhythm GI Inspection: Yes normal to inspection Extrem General: Yes normal to inspection and No edema Results AMB Hemoglobin A1c AMB Hemoglobin A1c 6.3 % Last Edit by TABATHA Gregorio on 01/22/24 10:22 Results Reviewed Results Reviewed: Laboratory Last Values Hgb A1c (Clinic) 6.3 % (4.0-6.0) H 01/22/24 10:09 Coding Level of Care Code Est Pt Level 4 (18310) Diagnoses Obstructive sleep apnea G47.33 Age related osteoporosis, unspecified pathological fracture presence M81.0 Osteoporosis type: age-related Presence of current pathological fracture: unspecified Renal calculus N20.0 Type 2 diabetes mellitus with hyperglycemia, without long-term current use of insulin E11.65 Diabetes mellitus legal administrative secretary insulin use: without usp use Simple chronic bronchitis J41.0 COPD type: chronic bronchitis Chronic bronchitis type: simple Hypercholesterolemia E78.00 Obesity (BMI 30-39.9) E66.9 Acquired hypothyroidism E03.9 Hypothyroidism type: acquired Assessment & Plan Assessment & Plan (1) Obstructive sleep apnea: Comment: Can not tolerate CPAP,Sleep study done 06/18/2023 results showing mild obstructive sleep apnea AHI of 9.8 because of hypoxemia advise CPAP therapy with auto PAP mode and pressure setting of 6-20 cm. Code(s): G47.33 - Obstructive sleep apnea (adult) (pediatric) Category: Medical Plan: Patient has been followed up by Pulmonary and has been placed on oxygen for nocturnal hypoxemia (2) Osteoporosis: Comment: March 2021 Code(s): M81.0 - Age-related osteoporosis without current pathological fracture Category: Medical Qualifiers: Osteoporosis type: age-related Presence of current pathological fracture: unspecified Qualified Code(s): M81.0 - Age-related osteoporosis without current pathological fracture Plan: Patient is reminded about bone density (3) Renal calculus: Comment: March 2019 bladder tumor, cystoscopy with stent placement January 2020, right ureteroscopy with stent placement September 2020, right lithotripsy August 2021, CT scan August 2022 bilateral renal calculi Left renal calculi June 2023 Code(s): N20.0 - Calculus of kidney Category: Medical Plan: Patient follows up with urology and lithotripsy tried but did not find any stone. (4) Type 2 diabetes mellitus with hyperglycemia: Comment: Dr. Barfield Code(s): E11.65 - Type 2 diabetes mellitus with hyperglycemia Category: Medical Qualifiers: Diabetes mellitus usp insulin use: without legal administrative secretary use Qualified Code(s): E11.65 - Type 2 diabetes mellitus with hyperglycemia Plan: Decrease the amount of carbohydrate intake, pasta, bread, rice and potatoes are all sugar and that is aside from all the sweet stuff, remember that fruits are good but they are Sweet also. Hemoglobin A1c goal of less than 7.0 on Jardiance 10 mg once a day glimepiride 2 mg once a day (5) COPD (chronic obstructive pulmonary disease): Comment: March 2017 PFT Code(s): J44.9 - Chronic obstructive pulmonary disease, unspecified Category: Medical Qualifiers: COPD type: chronic bronchitis Chronic bronchitis type: simple Qualified Code(s): J41.0 - Simple chronic bronchitis Plan: Continue with the albuterol inhaler (6) Hypercholesterolemia: Code(s): E78.00 - Pure hypercholesterolemia, unspecified Category: Medical Plan: Avoid fried foods, chicken skin, eggs, butter margarine, pastries and meat. Be it pork or beef they have a lot of cholesterol LDL goal of less than 100 and triglyceride of less than 150 (7) Obesity (BMI 30-39.9): Code(s): E66.9 - Obesity, unspecified Category: Medical Plan: Diet and exercise (8) Hypothyroid: Code(s): E03.9 - Hypothyroidism, unspecified Category: Medical Qualifiers: Hypothyroidism type: acquired Qualified Code(s): E03.9 - Hypothyroidism, unspecified Plan: Continue with thyroid medication Orders: Orders Lipid Panel Today E78.00 - Pure hypercholesterolemia, unspecified Comprehensive Met. Panel Today E78.00 - Pure hypercholesterolemia, unspecified Hemoglobin A1c Today E78.00 - Pure hypercholesterolemia, unspecified Free T4 (Free Thyroxine) Today E78.00 - Pure hypercholesterolemia, unspecified Thyroid Stimulating Hormone Today E78.00 - Pure hypercholesterolemia, unspecified AMB Hemoglobin A1c Today E11.65 - Type 2 diabetes mellitus with hyperglycemia Complete Blood Count Auto Diff Today E78.00 - Pure hypercholesterolemia, unspecified Vitamin B12 and Folate Today E78.00 - Pure hypercholesterolemia, unspecified Medications: New ezetimibe (Zetia) 10 mg PO DAILY 30 tabs 4RF E78.00 - Pure hypercholesterolemia, unspecified Discontinued fluticasone propion-salmeterol 115-21 mcg/actuation (Advair HFA) Discontinued Reason: Duplicate 2 puffs inhalation Q12H 30 days 12 grams 11RF
[2024-01-22 10:11] VITALS: BP 100/68; PULSE 65; O2SAT 98; BMI 37.9
== END 2024-01-22 10:41 | disposition home or self-care (01) ==
LOC: HO.HMCH 09:51
PROVIDERS: PCP Internal Medicine; Visit Provider Internal Medicine
DX: E11.65 Type 2 diabetes mellitus with hyperglycemia (principal); J41.0 Simple chronic bronchitis; E66.9 Obesity, unspecified; Z68.37 Body mass index [BMI] 37.0-37.9, adult; G47.33 Obstructive sleep apnea (adult) (pediatric); M81.0 Age-related osteoporosis without current pathological fracture; N20.0 Calculus of kidney; E78.00 Pure hypercholesterolemia, unspecified; E03.9 Hypothyroidism, unspecified

== ENCOUNTER → 2024-01-22 09:50 | Outpatient (BNVA) | payer MEDICARE, MEDICAID, SELFPAY | PROVIDERS: PCP Internal Medicine; Visit Provider Internal Medicine | DX: E11.65 Type 2 diabetes mellitus with hyperglycemia (principal); M81.0 Age-related osteoporosis without current pathological fracture; N20.0 Calculus of kidney; J41.0 Simple chronic bronchitis; E78.00 Pure hypercholesterolemia, unspecified; E03.9 Hypothyroidism, unspecified; E66.9 Obesity, unspecified; G47.33 Obstructive sleep apnea (adult) (pediatric) | CPT/HCPCS: 83036; 99212 ==

== ENCOUNTER 2024-04-26 09:34 | Outpatient (REF) | payer MEDICARE, MEDICAID, SELFPAY ==
[2024-04-26 09:52] VITALS: BP 140/94; PULSE 78; RESP 18; TEMP 36.4; O2SAT 95; BMI 38.7
== END 2024-04-26 09:35 | disposition home or self-care (01) ==
LOC: HO.MS 09:34
PROVIDERS: PCP Internal Medicine; Visit Provider Ophthalmology
PROC: (CPT 66821; principal; 2024-04-26 12:40)
DX: H26.491 Other secondary cataract, right eye (principal)
CPT/HCPCS: 66821

== ENCOUNTER 2024-05-13 10:40 | Outpatient (AMB) | payer MEDICARE, MEDICAID, SELFPAY ==
[2024-05-13 10:49] VITALS: BP 128/80; PULSE 77; O2SAT 97; BMI 39.1
--- NOTE | 2024-05-13 10:49 | A.OFFPC_ITS ---
Vital Signs 05/13/24 10:49 Height 5 ft Weight 200 lb BMI 39.1 BP 128/80 Blood Pressure Location Lt brachial Position Sitting Pulse 77 Pulse Source Pulse Oximeter Pulse Oximetry (%) 97 Oxygen Delivery Method Room Air Intake Visit Reasons: Diabetes mellitus, hypercholesterolemia, obesity Allergies ciprofloxacin [From CIPRO] Allergy (Severe, Verified 05/13/24 10:50) SWELLING Penicillins [PENICILLINS] Allergy (Severe, Verified 05/13/24 10:50) SWELLING latex [LATEX] Allergy (Intermediate, Verified 05/13/24 10:50) RASH simvastatin [SIMVASTATIN] Allergy (Intermediate, Verified 05/13/24 10:50) HEADACHE aspirin Allergy (Unknown, Verified 05/13/24 10:50) 'tastes blood metformin Allergy (Unknown, Verified 05/13/24 10:50) diarrhea pravastatin [Pravachol] Allergy (Unknown, Verified 05/13/24 10:50) Unknown tacrolimus Allergy (Unknown, Verified 05/13/24 10:50) Rash atorvastatin [From LIPITOR] Adverse Reaction (Intermediate, Verified 05/13/24 10:50) HEADACHE rosuvastatin Adverse Reaction (Intermediate, Verified 05/13/24 10:50) Headache Tobacco use date assessed: 05/13/24 Fall risk assessment: No Falls in past year Last assessed Fall Risk: 05/13/24 Dental Screening Dental Screen Date: 05/13/24 Did you have a dental visit in the last 12 months?: No Did you have a dental problem in the last 6 months where you did not have access to dental care?: No Was dental information given to patient?: Patient has dentist HPI Diabetes mellitus, hypercholesterolemia, obesity HPI Details The patient is a 68-year-old female presenting for a follow-up regarding her multiple chronic health conditions. She has a history of diabetes mellitus with a recent Hemoglobin A1c of 6.3 as of December 2023. Past medical records indicate an A1c of 6.5 in August prior to the current assessment. She suffers from statin intolerance, having experienced adverse reactions to simvastatin, pravastatin, atorvastatin, and rosuvastatin. As a result, she is not currently taking any statins, including Xaria, nor is she on Zetia for hypercholesterolemia management. Her last cholesterol measurement showed elevated levels with an LDL of 120 mg/dL. Her current management includes a goal of LDL less than 100 mg/dL and triglycerides under 150 mg/dL. Additionally, the patient manages hypothyroidism, osteoporosis, and has obstructive sleep apnea, for which she cannot tolerate CPAP therapy. It is noted that her GERD is part of her medical history, and she continues to require Vitamin B12 injections due to documented deficiency. Her bone density was last assessed in March 2021. Mammography is up-to-date as of March 2024, and the patient underwent cataract surgery in April. Current medication regimen includes Jardiance and glimepiride for diabetes management. She is also on albuterol as needed for COPD management. Under control as the use of albuterol rescue about once a month. But does use the controller regularly [facility] Medical History (Updated 05/13/24 @ 11:33 by You Gallardo MD) Obesity Dyspnea Diarrhea Osteopenia Obstruction of kidney Obstructive sleep apnea Renal calculus Type 2 diabetes mellitus with hyperglycemia Pulmonary nodule Hypercholesterolemia COPD (chronic obstructive pulmonary disease) Obesity (BMI 30-39.9) Carpal tunnel syndrome Hypothyroid Surgical History S/P cystoscopy with ureteral stent placement History of cataract surgery History of bladder surgery History of tonsillectomy History of tubal ligation History of right oophorectomy Family History Father CVD (cardiovascular disease) Mother Diabetes Hypertension Heart failure Social History Housing: Apartment Alcohol intake: never Patient Tobacco Use Status: Former Tobacco user Tobacco use type: Cigarette Years Smoked: 2005 e-Cigarette/Vaping Use: Never Used Second Hand Smoke Exposure: No service: No Current occupational status: disabled Cognitive needs: No Hearing needs: No Vision needs: No Questionnaire PHQ-9 Over the last 2 weeks, how often have you been bothered by any of the following problems? 1. Little interest or pleasure in doing things: not at all 2. Feeling down, depressed, or hopeless: not at all 3. Trouble falling or staying asleep, or sleeping too much: not at all 4. Feeling tired or having little energy: not at all 5. Poor appetite or overeating: not at all 6. Feeling bad about yourself - or that you are a failure or have let yourself or your family down: not at all 7. Trouble concentrating on things, such as reading the newspaper or watching television: not at all 8. Moving or speaking so slowly that other people could have noticed. Or the opposite - being so fidgety or restless that you have been moving around a lot more than usual: not at all 9. Thoughts that you would be better off or of hurting yourself in some way: not at all Total score: 0 Depression Screening Interpretation: Negative Depression Screening Done: Yes 58400 - PHQ-9 Billing: Yes Source: Developed by Drs. Jeromy Miller, Kristin Vargas, Chato Wild and colleagues, with an educational angelica from [employer]. Thrive Questionnaire Date Thrive assessed: 05/13/24 I am a: Patient What is your living situation today?: I have a steady place to live Within the past 12 months, did the food you bought not last and you didn't have the money to get more?: Never true Within the past 12 months, did you worry whether your food would run out before you got money to buy more?: Never true Do you have trouble paying for medicines?: No Do you have trouble getting transportation to medical appointments?: No Do you have trouble paying your heating and electricity bill?: No Do you have trouble taking care of your child, family member or friend?: No Do you have trouble with day-to-day activities such as bathing, preparing meals, shopping, managing finances, etc.?: No Are you currently unemployed and looking for a job?: No Are you interested in more education?: No Currently or been in a relationship where the following occur: No concerns reported THRIVE Score: 0 AUDIT C Alcohol Use Questionnaire (AUDIT-C) 1. How often do you have a drink containing alcohol?: Monthly or less 2. How many drinks containing alcohol do you have on a typical day when you are drinking?: 1 or 2 3. How often do you have six or more drinks on one occasion?: Never Total Score: 1 Score Reviewed/Action Taken: No NATIVIDAD-7 AMB Questionnaire NATIVIDAD-7 Date NATIVIDAD - 7 assessed: 05/13/24 Feeling nervous, anxious, or on edge: 0 = Not at all Not being able to stop or control worryin = Not at all Worrying too much about different things: 0 = Not at all Trouble relaxin = Not at all Being so restless that it is hard to sit still: 0 = Not at all Becoming easily annoyed or irritable: 0 = Not at all Feeling afraid as if something awful might happen: 0 = Not at all Total NATIVIDAD-7 score (0-4 normal; 5-9 mild; 10-14 moderate; 15-21 severe): 0 Source: Developed by Drs. Jeromy Miller, Kristin Vargas, Chato Wild and colleagues, with an educational angelica from [employer]. Physical exam (Primary Care) Vital Signs: Last Vital Signs Pulse 77 05/13/24 10:49 BP 128/80 05/13/24 10:49 Pulse Ox 97 05/13/24 10:49 Oxygen Delivery Method Room Air 05/13/24 10:49 BMI result Body Mass Index 39.1 Tobacco/Smoking Status: Tobacco use Status Tobacco use date assessed 05/13/24 05/13/24 10:52 Patient Tobacco Use Status Former Tobacco user 05/13/24 10:52 Tobacco use type Cigarette 05/13/24 10:52 e-Cigarette/Vaping Use Never Used 05/13/24 10:52 PHQ-9: PHQ-9 Score PHQ-9: Total score 0 05/13/24 11:19 Depression Screening Interpretation: Negative Thrive Assessment: Date of Thrive Assessment Date Thrive assessed 05/13/24 05/13/24 10:52 Currently or been in a relationship where the following occur: No concerns reported Const General: alert; No acute distress Eyes Conjunctivae: conjunctivae normal Resp Auscultation: clear to auscultation bilaterally Cardio Rate: regular rate Rhythm: regular rhythm GI Inspection: Yes normal to inspection Extrem General: Yes normal to inspection and No edema Results AMB Hemoglobin A1c AMB Hemoglobin A1c 6.6 % Last Edit by Sally Franco CMA on 05/13/24 11 :20 Results Reviewed Results Reviewed: Laboratory Last Values Hgb A1c (Clinic) 6.6 % (4.0-6.0) H 05/13/24 10:52 Coding Level of Care Code Est Pt Level 4 (83422) Complex EM visit Add On G2211 Diagnoses Type 2 diabetes mellitus with hyperglycemia, without long-term current use of insulin E11.65 Diabetes mellitus shelter insulin use: without marine scientist use Hypercholesterolemia E78.00 Acquired hypothyroidism E03.9 Hypothyroidism type: acquired Obesity (BMI 30-39.9) E66.9 Simple chronic bronchitis J41.0 COPD type: chronic bronchitis Chronic bronchitis type: simple Age related osteoporosis, unspecified pathological fracture presence M81.0 Osteoporosis type: age-related Presence of current pathological fracture: unspecified Gastroesophageal reflux disease, unspecified whether esophagitis present K21.9 Esophagitis presence: esophagitis presence not specified Obstructive sleep apnea G47.33 Vitamin B 12 deficiency E53.8 Frequency of micturition R35.0 Additional Codes PHQ-9 - 35235 - PHQ-9 Billing: Yes ([id number]) Assessment & Plan Assessment & Plan (1) Type 2 diabetes mellitus with hyperglycemia: Comment: Dr. Barfield Code(s): E11.65 - Type 2 diabetes mellitus with hyperglycemia Category: Medical Qualifiers: Diabetes mellitus marine scientist insulin use: without shelter use Qualified Code(s): E11.65 - Type 2 diabetes mellitus with hyperglycemia Plan: Decrease the amount of carbohydrate intake, pasta, bread, rice and potatoes are all sugar and that is aside from all the sweet stuff, remember that fruits are good but they are Sweet also. Hemoglobin A1c goal of less than 7.0. Patient is taking Jardiance 10 mg once a day glimepiride 2 mg once a day (2) Hypercholesterolemia: Code(s): E78.00 - Pure hypercholesterolemia, unspecified Category: Medical Plan: Avoid fried foods, chicken skin, eggs, butter margarine, pastries and meat. Be it pork or beef they have a lot of cholesterol LDL goal of less than 100 and triglyceride of less than 150. But patient is statin intolerant and can not tolerate Zetia also. (3) Hypothyroid: Code(s): E03.9 - Hypothyroidism, unspecified Category: Medical Qualifiers: Hypothyroidism type: acquired Qualified Code(s): E03.9 - Hypothyroidism, unspecified Plan: Continue with present thyroid medication and will retest (4) Obesity (BMI 30-39.9): Code(s): E66.9 - Obesity, unspecified Category: Medical Plan: Diet and exercise (5) COPD (chronic obstructive pulmonary disease): Comment: March 2017 PFT Code(s): J44.9 - Chronic obstructive pulmonary disease, unspecified Category: Medical Qualifiers: COPD type: chronic bronchitis Chronic bronchitis type: simple Qualified Code(s): J41.0 - Simple chronic bronchitis Plan: Continue with albuterol as needed and Advair (6) Osteoporosis: Comment: March 2021 Code(s): M81.0 - Age-related osteoporosis without current pathological fracture Category: Medical Qualifiers: Osteoporosis type: age-related Presence of current pathological fracture: unspecified Qualified Code(s): M81.0 - Age-related osteoporosis without current pathological fracture Plan: Reminded about bone density. Discussed about calcium and vitamin-D (7) GERD (gastroesophageal reflux disease): Code(s): K21.9 - Gastro-esophageal reflux disease without esophagitis Category: Medical Qualifiers: Esophagitis presence: esophagitis presence not specified Qualified Code(s): K21.9 - Gastro-esophageal reflux disease without esophagitis Plan: Avoid the foods that causes that usually spicy foods, tomato products, juices, coffee, soda and foods that your sensitive to. After eating do not lie down, allow 3-4 hours before in lie down. And keep the head of bed above 30 degrees to avoid the acid from going up. (8) Obstructive sleep apnea: Comment: Can not tolerate CPAP,Sleep study done 06/18/2023 results showing mild obstructive sleep apnea AHI of 9.8 because of hypoxemia advise CPAP therapy with auto PAP mode and pressure setting of 6-20 cm. Code(s): G47.33 - Obstructive sleep apnea (adult) (pediatric) Category: Medical Plan: Patient can not tolerate the CPAP but discussed about importance of treating sleep apnea (9) Vitamin B 12 deficiency: Code(s): E53.8 - Deficiency of other specified B group vitamins Category: Medical Plan: Continue with vitamin B12 and will need to retest (10) Frequency of micturition: Code(s): R35.0 - Frequency of micturition Category: Medical Plan: Urinalysis requested Plan 1. 0: - Hypercholesterolemia: Since the patient is statin intolerant, monitor lipid levels carefully and explore possible alternative therapies. - Hypothyroidism: Continue with the present thyroid medication regimen and consider retesting to ensure adequate control. - COPD Management: Patient uses albuterol as needed. Recurrent education on its use should be reinforced. - Obstructive Sleep Apnea: Reinforce the importance of treating sleep apnea and discuss potential alternative therapies, given the patient's intolerance to CPAP. - Vitamin B12 Deficiency: Continue with B12 injections and plan for follow-up blood work. - Osteoporosis: Ensure adequate calcium and vitamin D intake as part of preventive measures and discuss any necessary updates to bone density assessment schedule. - GERD: Continue ongoing management and monitor for symptom control. Orders: Orders AMB Hemoglobin A1c Today Z13.9 - Encounter for screening, unspecified UA CC w/rflx Micro + Cult Today R30.0 - Dysuria, R35.0 - Frequency of micturition Medications: Changed From empagliflozin (Jardiance) 10 mg PO DAILY 30 tabs 4RF E11.65 - Type 2 diabetes mellitus with hyperglycemia To empagliflozin 25 mg PO DAILY 90 tabs 2RF E11.65 - Type 2 diabetes mellitus with hyperglycemia Discontinued glimepiride Discontinued Reason: Duplicate 2 mg PO DAILY 90 caps 2RF E11.65 - Type 2 diabetes mellitus with hyperglycemia
--- OUTSIDE RECORDS SUMMARY | 2024-05-13 11:50 | XMS_ITS ---
Author Organization [facility] Address [address] [place] [id number] Care Team Providers Care Weaver Apprentice Name Role Phone You Gallardo Primary Care Provider Villa Kumar [phone] Encounters Encounter Location Date Provider [facility] [address] [address] 09/08/2023 Villa Nguyen Plan Of Treatment No Information Progress Notes * Aye KIGNaDOB:1955 (68 yo F)Acc No.[id number]:09/08/2023 Progress Note Patient:Nora SULLIVAN Provider:?Villa Nguyen DPM :1955???Age:67 Y???Sex:Female D ate:09/08/2023 Address:[address] [place], [place] [id number] Pcp:You Gallardo Subjective: * Chief Complaints: * ??? * Medical History:? Objective: * Vitals:? Assessment: Plan: * Treatment: * Images: * The named appointment provid er may or may not be the originator of this progress note, and it is not deemed complete until electronically signed by the appointment provider. Sign off status: Pending * Provider:?Villa Nguyen DPM Date:?2023 Generated for Evini vito/Fadanny/eTransmitting on:?05/13/2024 11:50 AM EST
--- OUTSIDE RECORDS SUMMARY | 2024-05-13 11:50 | XMS_ITS | Patient Health Record ---
Author Organization [facility] Address [address] [place] [address] Care Team Providers Care Online Program Coordinator Name Role Phone You Gallardo Primary Care Provider Villa Kumar Unavailable [phone] Allergies Allergen (clinical drug ingredient) Drug/Non Drug Allergy documented on EMR Reaction Allergy Type Onset Date Status Adhesive Unknown Allergy Active Latex Latex Unknown Allergy Active Penicillin Unknown Drug Allergy Active Reason For Referral No Information Medications Medication SIG (Take, Route, Frequency, Duration) Notes Start Date End Date Status Ventolin HFA Active Levothyroxine Sodium 88 MCG TAKE ONE TABLET BY MOUTH EVERY DAY Oral for 90 Days Active Vitamin D3 50 MCG (1999 UT) TAKE ONE CAPSULE BY MOUTH EVERY DAY Oral for 90 Days Active Dupixent Active Allergy Relief 10 MG TAKE ONE TABLET BY MOUTH EVERY DAY Oral for 90 Days Active Senna 8.6 MG TAKE TWO TABLETS BY MOUTH AT BEDTIME FOR CONSTIPATION Oral for 30 Days Active D2000 Ultra Strength 50 MCG (1999 UT) TAKE ONE CAPSULE BY MOUTH EVERY DAY Oral for 90 Days Active Bisacodyl EC 5 MG TAKE 2 TABLETS BY MO UTH AT BEDTIME Oral for 90 Days Active Jardiance 10 MG TAKE ONE TABLET BY M OUTH EVERY DAY Oral for 30 Days Not-Taking Famotidine 20 MG TAKE ONE TABLET BY M OUTH EVERY DAY AT BEDTIME Oral for 30 Days Active Ammonium Lactate 12 % APPLY TO AFFECTED AREA S) ON THE BODY THROUGHOUT TWO TIMES A DAY External for 30 Days Active Extra Depth Orthopedic Shoes (1 Pair) with Customized Heat Molded Multidensity Innersoles (3 Pair) as directed Dx: NIDDM (E11.9), Hammertoe Foot Deformity (M20.41,M20.42), Preulcerative Skin Lesion(s) (L85.1) 01/29/2023 Active Glimepiride 2 MG TAKE ONE TABLET BY M OUTH EVERY DAY Oral for 90 Days Active Pantoprazole Sodium 20 MG TAKE ONE TABLET BY MOUTH EVERY DAY Oral for 30 Days Active Symbicort 80-4.5 MCG/ACT INHALE ONE PUFF BY MOUTH TWICE A DAY NEEDED FOR SHORTNESS OF BREATH OR WHEEZING Inhalation for 60 Days Active Rosuvastatin Calcium 5 MG TAKE ONE TABLET BY MOUTH EVERY DAY Oral for 90 Days Active Social History Tobacco Use: Social History Observation Description Date Details (start date - stop date) Former Smoker NA - NA Tobacco Use/Smoking Question Answer Notes Are you a: former smoker Alcohol Screen Question Answer Notes Did you have a drink containing alcohol in the p ast year? No Points 0 Interpretation Negative Tobacco use other than smoking: Question Answer Notes Are you an other tobacco user? No Problems Problem Type SNOMED Code ICD Code Onset Dates Problem Status W/U Status Risk Notes Problem Acquired hammer toe of right foot (960729123716948 5) Other hammer toe(s) (acquired), right foot (M20.41) Active confirmed Problem Acquired hammer toe of left foot (602473019580008 3) Other hammer toe(s) (acquired), left foot (M20.42) Active confirmed Problem Type 2 diabetes mellitus without complication (762739295) Type 2 diabetes mellitus without complication (E11.9) Active confirmed Encounters Encounter Location Date Provider Diagnosis [facility] [address] [address] 09/04/2023 Villa Nguyen Plan Of Treatment Pending Test Test Name Order Date [id number] NAIL, 6 OR MORE 01/29/2023 [id number] NAIL, 6 OR MORE 04/09/2023 [id number] SKIN LESIONS, OVER 4 01/30/20 23 Insurance Providers Payer Name Payer Address Payer Phone Subscriber Number Group Number Insured Name Patient Relationship to Insured Coverage Start Date Coverage End Date [employer] [address] [place] [address] [id number] Nora Moy Self - patient is the insured Medical (General) History Medical History History ICD Code Arthritis Psoriasis/eczema thyroid Measles Mumps Chicken pox Kidney disease Lung disease Diabetes Hospitalization History Reason Date(Month/Year) kidney stones 2020
--- OUTSIDE RECORDS SUMMARY | 2024-05-13 11:50 | XMS_ITS ---
Author Organization [facility] Address [address] [place] [address] Care Team Providers Care Radio Despatcher Name Role Phone You Gallardo Primary Care Provider Villa Kumar Unavailable [phone] Allergies Allergen (clinical drug ingredient) Drug/Non Drug Allergy documented on EMR Reaction Allergy Type Onset Date Status Adhesive Unknown Allergy Active Latex Latex Unknown Allergy Active Penicillin Unknown Drug Allergy Active REASON FOR VISIT At Risk Footcare, Painful Nail(s) aggrevated by shoes and causing difficulty standing/walking. Medications Medication SIG (Take, Route, Frequency, Duration) Notes Start Date End Date Status Allergy Relief 10 MG TAKE ONE TABLET BY MOUTH EVERY DAY Oral for 90 Days Active D2000 Ultra Strength 50 MCG (1999 UT) TAKE ONE CAPSULE BY MOUTH EVERY DAY Oral for 90 Days Active Jardiance 10 MG TAKE ONE TABLET BY M OUTH EVERY DAY Oral for 30 Days Not-Taking Famotidine 20 MG TAKE ONE TABLET BY M OUTH EVERY DAY AT BEDTIME Oral for 30 Days Active Pantoprazole Sodium 20 MG TAKE ONE TABLET BY MOUTH EVERY DAY Oral for 30 Days Active Ventolin HFA Active Vitamin D3 50 MCG (2000 UT) TAKE ONE CAPSULE BY MOUTH EVERY DAY Oral for 90 Days Active Senna 8.6 MG TAKE TWO TABLETS BY MOUTH AT BEDTIME FOR CONSTIPATION Oral for 30 Days Active Extra Depth Orthopedic Shoes (1 Pair) with Customized Heat Molded Multidensity Innersoles (3 Pair) as directed Dx: NIDDM (E11.9), Hammertoe Foot Deformity (M20.41,M20.42), Preulcerative Skin Lesion(s) (L85.1) 01/29/2023 Active Symbicort 80-4.5 MCG/ACT INHALE ONE PUFF BY MOUTH TWICE A DAY NEEDED FOR SHORTNESS OF BREATH OR WHEEZING Inhalation for 60 Days Active Dupixent Active Bisacodyl EC 5 MG TAKE 2 TABLETS BY MO UTH AT BEDTIME Oral for 90 Days Active Ammonium Lactate 12 % APPLY TO AFFECTED AREA S) ON THE BODY THROUGHOUT TWO TIMES A DAY External for 30 Days Active Glimepiride 2 MG TAKE ONE TABLET BY M OUTH EVERY DAY Oral for 90 Days Active Rosuvastatin Calcium 5 MG TAKE ONE TABLET BY MOUTH EVERY DAY Oral for 90 Days Active Levothyroxine Sodium 88 MCG TAKE ONE [...] Are you an other tobacco user? No Vital Signs Height 5ft in 04/09/2023 Weight 200 lbs 04/09/2023 BMI 39.06 kg/m2 04/09/2023 Procedures Procedure Date Ordered Date Performed Result Body Sit e 81084-CYHGDMM NAIL, 6 OR MORE 04/09/2023 N/A Encounters Encounter Location Date Provider Diagnosis [facility] [address] [address] 04/09/2023 Villa Patrick Pain in right toe(s) M79.674 ; Tinea unguium B35.1 ; Pain in left toe(s) M79.675 and Type 2 diabetes mellitus without complication E11.9 Assessments Encounter Date Diagnosis (ICD Code) Assessment Notes Treatment Notes Treatment Clinical Notes Section Notes 04/09/2023 Pain in right toe(s) (ICD-10 - M79.674) 04/09/2023 Tinea unguium (ICD-10 - B35.1) 04/09/2023 Pain in left toe(s) (ICD-10 - M79.675) 04/09/2023 Type 2 diabetes mellitus without complication (ICD-10 - E11.9) Plan Of Treatment Pending Test Test Name Order Date 64441-[id number] NAIL, 6 OR MORE 04/09/2023 Next Appt Details Follow Up: prn, Reason: Procedure Notes * Category Sub-Category Detail Notes Debride Nail 6-10 Nail debridement Nail debridem ent performed extensively to reduce/remove overall nail length, girth, thickness, subungual debris, and necrotic tissue, by manual and electrical means through the use of a nail nipper and/or dremel, to more viable healthy nail plate or bed tissue 1-5. Silver nitrate used for any petechial bleeding as necessary. Patient chooses, no pharmaceutical tx (77675) Progress Notes * Aye KINGaDOB:1955 (67 yo F)Acc No.[id number]:04/09/2023 Progress Note Patient:?Nora King Provider:?Villa Nguyen DPM :1955???Age:67 Y???Sex:Female D ate:04/09/2023 Address:[address] [place] [address] Pcp:You Gallardo Subjective: * Chief Complaints: * ???At Risk FootcarePainful N ail(s) aggrevated by shoes and causing difficulty standing/walking. * HPI: ???At Risk footcare:?Pt States Last PCP Visit:?Date?03/25/2023 ???Toe pain:?Treatments:?Rx shoes , states still needs - appt next 04/18/23.? * ROS:?General/Constitutional:?Nausea?denies.?Vomiting?denies.?Hunger Thirst?denies.?Loss appetite?denies.?Chills?denies.?Fatigue?denies.?Fever?denies.?Night Sweats?admits.?Unexplained weight loss?denies.?Unexplained weight gain?admits.?HEENTM:?Dentures?denies.?Dizziness?admits.?Glasses/contacts?admits.?Retinopathy?de nies.?Blurred/double vision?denies.?TMJ?denies.?Discharge/drainage?denies.?Implants?denies.?Sore throat?denies.?Dental implants?denies.?Hard of hearing ?admits.?Difficulty chewing/swallowing/speaking?denies.?Nose bleeds?denies.?Sore mouth?denies.?Respiratory:?On Oxygen?denies.?Pneumonia/pleurisy?denies.?Bronchitis?denies.?Emphysema?denies.?C oughing?admits.?Cough blood?denies.?Shortness of breath?admits.?Wheezing?admits.?Cardiovascular:?Pacemaker?denies.?MVP?denies.?WPW?denies.?CHF?denies.?Heart attack?denies.?Septal defect?denies.?Rapid beat?denies.?Chest pain ?denies.?Atrial Fib.?denies.?Murmur/Palpitations?denies.?Gastrointestinal:?Hemorrhoids?denies.?Stomach/Abdominal pain?admits.?Dark blood stool?denies.?Irritable bowel ?denies.?Constipation?admits.?Diarrhea?admits.?Hematology:?Swelling?admits.?Clots?denies.?Varicose Veins?denies.?Bruising?denies.?Bleeding problem?denies.?Genitourinary:?Blood urine?admits.?Frequent/Painfu/urination/bladder control?denies.?Kidney stones?admits.?Infection (UTI)?admits.?Nephropathy?denies.?sex trans dis (STD)?denies.?Prostate?denies.?Musculoskeletal:?Hammertoes?admits.?Bunions?denies.?Back Pain?denies.?Muscle Cramps/ Resting?denies.?Muscle cramps / walking?denies.?Generalized aches and pains?denies.?Weakness?denies.?Integ.:?Ferreira?denies.?Scars?denies.?Corns/calluses?admits.?Ingrown nails?admits.?Painful nails?admits.?Open Sores?denies.?Rashes?denies.?Neurologic:?Difficulty sleeping?admits.?Brain disorder?denies.?Numbness?denies.?Balance trouble?denies.?Confusion?denies.?Fainting/blackouts?denies.?Tingling?denies.?Tr emors?denies.? * Medical History:? * Surgical History:?No Surgica l History documented. * Hospitalization/Major Diagno stic Procedure:?kidney stones 2019 * Family History:?Mother: dece ased, foot problems, kidney/liver disease, diagnosed with Diabetic - NIDDM.?Father: .? * Social History:?Tobacco Use:?Tobacco Use/Smoking?Are you a:?former smoker ?Tobacco use other than smoking?Are you an other tobacco user??No ???Drugs/Alcohol:?Drugs?Have you used drugs other than those for medical reasons in the past 12 months??No ?Alcohol Screen?Did you have a drink containing alcohol in the past year??No ?Points?0 ?Interpretation?Negative ???Miscellaneous:?Caffeine: yes. ?Children: yes, 6. ?Exercise: yes, walking. ?Marital status: . ?Occupation: Retired. * Medications:?TakingDupixent Ventolin HFA Symbicort 80-4.5 MCG/ACT Aerosol INHALE ONE PUFF BY MOUTH TWICE A DAY NEEDED FOR SHORTNESS OF BREATH OR WHEEZING Inhalation Pantoprazole Sodium 20 MG Tablet Delayed Release TAKE ONE TABLET BY MOUTH EVERY DAY Oral Famotidine 20 MG Tablet TAKE ONE TABLET BY MOUTH EVERY DAY AT BEDTIME Oral D2000 Ultra Strength 50 MCG (2000 UT) Capsule TAKE ONE CAPSULE BY MOUTH EVERY DAY Oral Allergy Relief 10 MG Tablet TAKE ONE TABLET BY MOUTH EVERY DAY Oral Levothyroxine Sodium 88 MCG Tablet TAKE ONE TABLET BY MOUTH EVERY DAY Oral Rosuvastatin Calcium 5 MG Tablet TAKE ONE TABLET BY MOUTH EVERY DAY Oral Glimepiride 2 MG Tablet TAKE ONE TABLET BY MOUTH EVERY DAY Oral Ammonium Lactate 12 % Lotion APPLY TO AFFECTED AREA S) ON THE BODY THROUGHOUT TWO TIMES A DAY External Bisacodyl EC 5 MG Tablet Delayed Release TAKE 2 TABLETS BY MOUTH AT BEDTIME Oral Senna 8.6 MG Tablet TAKE TWO TABLETS BY MOUTH AT BEDTIME FOR CONSTIPATION Oral Vitamin D3 50 MCG (2000 UT) Capsule TAKE ONE CAPSULE BY MOUTH EVERY DAY Oral Extra Depth Orthopedic Shoes (1 Pair) with Customized Heat Molded Multidensity Innersoles (3 Pair) as directed Dx: NIDDM (E11.9), Hammertoe Foot Deformity (M20.41,M20.42), Preulcerative Skin Lesion(s) (L85.1)Taking Dupixent Taking Ventolin HFA Taking Symbicort 80-4.5 MCG/ACT Aerosol INHALE ONE PUFF BY MOUTH TWICE A DAY NEEDED FOR SHORTNESS OF BREATH OR WHEEZING Inhalation Taking Pantoprazole Sodium 20 MG Tablet Delayed Release TAKE ONE TABLET BY MOUTH EVERY DAY Oral Taking Famotidine 20 MG Tablet TAKE ONE TABLET BY MOUTH EVERY DAY AT BEDTIME Oral Taking D2000 Ultra Strength 50 MCG (2000 UT) Capsule TAKE ONE CAPSULE BY MOUTH EVERY DAY Oral Taking Allergy Relief 10 MG Tablet TAKE ONE TABLET BY MOUTH EVERY DAY Oral Taking Levothyroxine Sodium 88 MCG Tablet TAKE ONE TABLET BY MOUTH EVERY DAY Oral Taking Rosuvastatin Calcium 5 MG Tablet TAKE ONE TABLET BY MOUTH EVERY DAY Oral Taking Glimepiride 2 MG Tablet TAKE ONE TABLET BY MOUTH EVERY DAY Oral Taking Ammonium Lactate 12 % Lotion APPLY TO AFFECTED AREA S) ON THE BODY THROUGHOUT TWO TIMES A DAY External Taking Bisacodyl EC 5 MG Tablet Delayed Release TAKE 2 TABLETS BY MOUTH AT BEDTIME Oral Taking Senna 8.6 MG Tablet TAKE TWO TABLETS BY MOUTH AT BEDTIME FOR CONSTIPATION Oral Taking Vitamin D3 50 MCG (2000 UT) Capsule TAKE ONE CAPSULE BY MOUTH EVERY DAY Oral Taking Extra Depth Orthopedic Shoes (1 Pair) with Customized Heat Molded Multidensity Innersoles (3 Pair) as directed Dx: NIDDM (E11.9), Hammertoe Foot Deformity (M20.41,M20.42), Preulcerative Skin Lesion(s) (L85.1)Not-Taking/PRNJardiance 10 MG Tablet TAKE ONE TABLET BY MOUTH EVERY DAY Oral Medication List reviewed and reconciled with the patientNot-Taking/PRN Jardiance 10 MG Tablet TAKE ONE TABLET BY MOUTH EVERY DAY Oral Medication List reviewed and reconciled with the patient * Allergies:?PenicillinAdhesiv eLatexyes[Allergies Verified] Objective: * Vitals:?Ht: 5ft, Wt:200, BMI :39.06, Shoe size: 8, Ht-cm: 152.4 cm, Wt-k.72 kg. * Examination: ???Nails: ?NAILS are:?Elongated, overgrown, dystrophic, lytic, greater than 3mm thick, discolored and friable with crumbly malodorous subungual debris, with pain on palpation , 1-5 B/L.? Assessment: * Assessment: 1.?Tinea unguium - B35.1?2.? Pain in right toe(s) - M79.674?3.?Pain in left toe(s) - M79.675?4.?Type 2 diabetes mellitus without complication - E11.9? Plan: * Treatment: * Procedures:?Debride Nail 6-10:?Nail debridement?Nail debridement performed extensively to reduce/remove overall nail length, girth, thickness, subungual debris, and necrotic tissue, by manual and electrical means through the use of a nail nipper and/or dremel, to more viable healthy nail plate or bed tissue 1-5. Silver nitrate used for any petechial bleeding as necessary. Patient chooses, no pharmaceutical tx (06428).? * Procedure Codes:?61080 DEBRI DE NAIL, 6 OR MORE * Preventive Medicine:? ??Counseling:?Shoe Gear Counseling:?Patient to obtain shoes hopefully soon.? * Follow Up:?prn * Images: * Sign off status: Completed true * Provider:Madeleine Nguyen DPM Date:?2023 Generated for Nakita padron/Maday/Papito on:?05/13/2024 11:50 AM EST History and Physical Notes * HPI (History of Present Illness) Category Sub-Category Detail Notes Category Not es Toe pain Treatments: Rx shoes , state s still needs - appt next 04/18/23 At Risk footcare Pt States Last PCP Visit: Date: 4 Examination Category Sub-Category Detail Notes Category Not es Nails NAILS are: Elongated, overg rown, dystrophic, lytic, greater than 3mm thick, discolored and friable with crumbly malodorous subungual debris, with pain on palpation , 1-5 B/L
--- OUTSIDE RECORDS SUMMARY | 2024-05-13 11:50 | XMS_ITS ---
Author Organization [facility] Address [address] [place] [phone] Care Team Providers Care Ore Miner Blasting Name Role Phone You Gallardo Primary Care Provider Villa Kumar [phone] REASON FOR VISIT Cancel Encounters Encounter Location Date Provider Diagnosis [facility] [address] [place] [address] 09/04/2023 Villa Nguyen Plan Of Treatment No Information Progress Notes * CHRISTINE, AyeaDOB:1955 (67 yo F)Acc No.[id number]:09/04/2023 Patient:?Nora Moy :1955???Age:67 Y???Sex:Female Address:[address] [place] [id number] * true * Date:? Generated for Printi ng/Neftalyg/eTransmitting on:?05/13/2024 11:50 AM EST
== END 2024-05-13 11:37 | disposition home or self-care (01) ==
PROVIDERS: PCP Internal Medicine; Visit Provider Internal Medicine
DX: E11.65 Type 2 diabetes mellitus with hyperglycemia (principal); J41.0 Simple chronic bronchitis; E66.9 Obesity, unspecified; Z68.39 Body mass index [BMI] 39.0-39.9, adult; E78.00 Pure hypercholesterolemia, unspecified; E03.9 Hypothyroidism, unspecified; M81.0 Age-related osteoporosis without current pathological fracture; K21.9 Gastro-esophageal reflux disease without esophagitis; G47.33 Obstructive sleep apnea (adult) (pediatric); E53.8 Deficiency of other specified B group vitamins; R35.0 Frequency of micturition

== ENCOUNTER → 2024-05-13 10:40 | Outpatient (BNVA) | payer MEDICARE, MEDICAID, SELFPAY | PROVIDERS: PCP Internal Medicine; Visit Provider Internal Medicine | DX: E11.65 Type 2 diabetes mellitus with hyperglycemia (principal); E78.00 Pure hypercholesterolemia, unspecified; E03.9 Hypothyroidism, unspecified; E66.9 Obesity, unspecified; J41.0 Simple chronic bronchitis; M81.0 Age-related osteoporosis without current pathological fracture; K21.9 Gastro-esophageal reflux disease without esophagitis; G47.33 Obstructive sleep apnea (adult) (pediatric); E53.8 Deficiency of other specified B group vitamins; R35.0 Frequency of micturition | CPT/HCPCS: 83036; 96127; 99212 ==

== ENCOUNTER 2024-08-26 09:38 | Outpatient (AMB) | payer MEDICARE, MEDICAID, SELFPAY ==
[2024-08-26 09:48] VITALS: BP 115/60; PULSE 73; O2SAT 94; BMI 37.3
--- NOTE | 2024-08-26 09:48 | MHC.PC.OV ---
Vital Signs 08/26/24 09:48 Height 5 ft Weight 191 lb BMI 37.3 BP 115/60 Blood Pressure Location Lt brachial Position Sitting Pulse 73 Pulse Source Pulse Oximeter Pulse Oximetry (%) 94 Oxygen Delivery Method Room Air Intake Visit Reasons: 3 Month F/U Crater And Packer Required: No Accompanied by: Self / Same As Patient Allergies ciprofloxacin [From CIPRO] Allergy (Severe, Verified 08/26/24 10:04) SWELLING Penicillins [PENICILLINS] Allergy (Severe, Verified 08/26/24 10:04) SWELLING latex [LATEX] Allergy (Intermediate, Verified 08/26/24 10:04) RASH simvastatin [SIMVASTATIN] Allergy (Intermediate, Verified 08/26/24 10:04) HEADACHE aspirin Allergy (Unknown, Verified 08/26/24 10:04) 'tastes blood metformin Allergy (Unknown, Verified 08/26/24 10:04) diarrhea pravastatin [Pravachol] Allergy (Unknown, Verified 08/26/24 10:04) Unknown tacrolimus Allergy (Unknown, Verified 08/26/24 10:04) Rash atorvastatin [From LIPITOR] Adverse Reaction (Intermediate, Verified 08/26/24 10:04) HEADACHE rosuvastatin Adverse Reaction (Intermediate, Verified 08/26/24 10:04) Headache Medication List - Last Reconciled 08/26/24 by Abby Chand PA-C [large Depends (pull ups) As directed] [3ml syringe with 25g x 1 in needle To administer B12 injection once a week] albuterol sulfate 90 mcg/actuation (Ventolin HFA) 2 puffs inhalation Q4H PRN ammonium lactate 12% topical BID bisacodyl 10 mg PO BEDTIME blood sugar diagnostic (FreeStyle Lite Strips) As directed check the BS QD [BODY WIPES As directed] cholecalciferol (vitamin D3) 50 mcg PO DAILY 90 days clotrimazole 1% (Athlete's Foot (clotrimazole)) 1 appl topical BID 4 weeks cyanocobalamin (vitamin B-12) 1,000 mcg subcut QWEEK 12 weeks disposable gloves (Disposable Latex-Free Gloves) large dupilumab (Dupixent) 300 mg subcut Q2W empagliflozin 25 mg PO DAILY famotidine 40 mg PO BEDTIME fluticasone propion-salmeterol 115-21 mcg/actuation (Advair HFA) 2 puffs inhalation BID hyoscyamine sulfate (NuLev) 0.125 mg PO BID-QID PRN [incontinence wipes As directed] [Large gloves As directed] levothyroxine 88 mcg PO DAILY loratadine (Allergy Relief (loratadine)) 10 mg PO DAILY Oxygen Home Use 2L at bedtime pantoprazole 40 mg PO QAM Tobacco use date assessed: 08/26/24 Fall risk assessment: No Falls in past year Last assessed Fall Risk: 08/26/24 Dental Screening Dental Screen Date: 08/26/24 Did you have a dental visit in the last 12 months?: No Did you have a dental problem in the last 6 months where you did not have access to dental care?: No Was dental information given to patient?: No HPI 3 Month F/U HPI Details 68-year-old female with past medical history of hypothyroid, obesity, COPD, hypercholesterolemia, diabetes mellitus with nephropathy, osteoporosis, GERD, obstructive sleep apnea last seen by Dr. Gallardo 04/2024 come in for follow up. Presenting with a follow-up for chronic condition management. Follow-up for hyperlipidemia with difficulties tolerating statins, considering options like ezetimibe but prefers to avoid additional pills due to previous side effects. Continuation of current GERD management with pantoprazole, with additional famotidine as needed for symptom relief. Ongoing COPD management includes daily albuterol inhaler and Advair use, with additional interventions including Dupixent injections and nighttime oxygen. Recent increase in HbA1c from 6.6 to 7.4 while on Jardiance 25 mg for Type 2 Diabetes Mellitus; previously on glimepiride before discontinuation. [facility] Medical History Obesity Dyspnea Diarrhea Osteopenia Obstruction of kidney Obstructive sleep apnea Renal calculus Type 2 diabetes mellitus with hyperglycemia Pulmonary nodule Hypercholesterolemia COPD (chronic obstructive pulmonary disease) Obesity (BMI 30-39.9) Carpal tunnel syndrome Hypothyroid Surgical History S/P cystoscopy with ureteral stent placement History of cataract surgery History of bladder surgery History of tonsillectomy History of tubal ligation History of right oophorectomy Family History Father CVD (cardiovascular disease) Mother Diabetes Hypertension Heart failure Social History Housing: Apartment Alcohol intake: never Patient Tobacco Use Status: Former Tobacco user Tobacco use type: Cigarette Years Smoked: 2005 e-Cigarette/Vaping Use: Never Used Second Hand Smoke Exposure: No service: No Current occupational status: disabled Cognitive needs: No Hearing needs: No Vision needs: No Questionnaire PHQ-9 Over the last 2 weeks, how often have you been bothered by any of the following problems? 1. Little interest or pleasure in doing things: not at all 2. Feeling down, depressed, or hopeless: not at all 3. Trouble falling or staying asleep, or sleeping too much: more than half the days 4. Feeling tired or having little energy: more than half the days 5. Poor appetite or overeating: not at all 6. Feeling bad about yourself - or that you are a failure or have let yourself or your family down: not at all 7. Trouble concentrating on things, such as reading the newspaper or watching television: not at all 8. Moving or speaking so slowly that other people could have noticed. Or the opposite - being so fidgety or restless that you have been moving around a lot more than usual: not at all 9. Thoughts that you would be better off or of hurting yourself in some way: not at all Total score: 4 Depression Screening Interpretation: Positive Depression Screening Done: Yes Source: Developed by Drs. Jeromy Miller, Kristin Vargas, Chato Wild and colleagues, with an educational angelica from [employer]. Thrive Questionnaire Date Thrive assessed: 08/26/24 I am a: Patient What is your living situation today?: I have a steady place to live Within the past 12 months, did the food you bought not last and you didn't have the money to get more?: Never true Within the past 12 months, did you worry whether your food would run out before you got money to buy more?: Never true Do you have trouble paying for medicines?: No Do you have trouble getting transportation to medical appointments?: No Do you have trouble paying your heating and electricity bill?: No Do you have trouble taking care of your child, family member or friend?: No Do you have trouble with day-to-day activities such as bathing, preparing meals, shopping, managing finances, etc.?: No Are you currently unemployed and looking for a job?: No Are you interested in more education?: No Currently or been in a relationship where the following occur: No concerns reported THRIVE Score: 0 AUDIT C Alcohol Use Questionnaire (AUDIT-C) 1. How often do you have a drink containing alcohol?: Monthly or less 2. How many drinks containing alcohol do you have on a typical day when you are drinking?: 1 or 2 3. How often do you have six or more drinks on one occasion?: Never Total Score: 1 Score Reviewed/Action Taken: No NATIVIDAD-7 AMB Questionnaire NATIVIDAD-7 Date NATIVIDAD - 7 assessed: 08/26/24 Feeling nervous, anxious, or on edge: 0 = Not at all Not being able to stop or control worryin = Not at all Worrying too much about different things: 0 = Not at all Trouble relaxin = Not at all Being so restless that it is hard to sit still: 0 = Not at all Becoming easily annoyed or irritable: 0 = Not at all Feeling afraid as if something awful might happen: 0 = Not at all Total NATIVIDAD-7 score (0-4 normal; 5-9 mild; 10-14 moderate; 15-21 severe): 0 Source: Developed by Drs. Jeromy Miller, Kristin Vargas, Chato Wild and colleagues, with an educational angelica from [employer]. Review of Systems Const Denies body aches, Denies chills, Denies fever(s), Denies headache(s) and Denies poor appetite Eyes Reports no additional complaints ENT Denies dysphagia, Denies dizziness, Denies headache(s) and Denies odynophagia Card Denies chest pain, Denies syncope, Denies edema, Denies irregular heart rhythm, Denies lightheadedness and Denies dyspnea Resp Denies cough and Denies dyspnea GI Denies abdominal pain, Denies constipation, Denies dysphagia, Denies diarrhea, Denies nausea, Denies odynophagia and Denies vomiting Reports no additional complaints Musc Reports no additional complaints and Denies abnormal gait Skin/Breast Reports system reviewed and no additional complaints, except as documented Neuro Denies abnormal gait, Denies dizziness, Denies syncope and Denies headache(s) Psych Reports no additional complaints Physical exam (Primary Care) Vital Signs: Last Vital Signs Pulse 73 08/26/24 09:48 BP 115/60 08/26/24 09:48 Pulse Ox 94 08/26/24 09:48 Oxygen Delivery Method Room Air 08/26/24 09:48 BMI result Body Mass Index 37.3 Tobacco/Smoking Status: Tobacco use Status Tobacco use date assessed 08/26/24 08/26/24 09:53 Patient Tobacco Use Status Former Tobacco user 08/26/24 09:53 Tobacco use type Cigarette 08/26/24 09:53 e-Cigarette/Vaping Use Never Used 08/26/24 09:53 PHQ-9: PHQ-9 Score PHQ-9: Total score 4 08/26/24 10:02 Depression Screening Interpretation: Positive Thrive Assessment: Date of Thrive Assessment Date Thrive assessed 08/26/24 08/26/24 09:53 Currently or been in a relationship where the following occur: No concerns reported Const General: cooperative, healthy appearing, comfortable and no acute distress Orientation/consciousness: patient oriented x3 HENMT Head: Yes normocephalic Ears: hearing grossly normal bilaterally General nose exam: Normal external nose present Eyes General: appearance normal, both eyes and all related structures Conjunctivae: conjunctivae normal Neck Neck: Yes full ROM and Yes no lymphadenopathy Resp Effort & Inspection: normal respiratory effort Auscultation: clear to auscultation bilaterally, no crackles, no rales, no rhonchi and no wheezes Cardio Rate: regular rate Rhythm: regular rhythm Skin General skin exam: no rashes or lesions noted Neuro General: patient oriented x3 Gait exam (Neuro): Normal gait present Extrem General: Yes normal to inspection, Yes full ROM and No edema Psych Affect: normal affect Attitude: cooperative Insight: Good insight present (Psych) Judgement: Good judgement present (Psych) Results AMB Hemoglobin A1c AMB Hemoglobin A1c 7.4 % Last Edit by Sally Franco CMA on 08/26/24 10:28 Coding Level of Care Code Est Pt Level 3 (34923) Diagnoses Obesity (BMI 30-39.9) E66.9 Simple chronic bronchitis J41.0 COPD type: chronic bronchitis Chronic bronchitis type: simple Acquired hypothyroidism E03.9 Hypothyroidism type: acquired Hypercholesterolemia E78.00 Type 2 diabetes mellitus with hyperglycemia, without long-term current use of insulin E11.65 Diabetes mellitus joint terminal attack controller insulin use: without joint terminal attack controller use Gastroesophageal reflux disease, unspecified whether esophagitis present K21.9 Esophagitis presence: esophagitis presence not specified Assessment & Plan Assessment & Plan (1) Obesity (BMI 30-39.9): Code(s): E66.9 - Obesity, unspecified Category: Medical Plan: Healthy diet and regular exercise is encouraged. Noted 9 lb weight loss since last visit. (2) COPD (chronic obstructive pulmonary disease): Comment: March 2017 PFT Code(s): J44.9 - Chronic obstructive pulmonary disease, unspecified Category: Medical Qualifiers: COPD type: chronic bronchitis Chronic bronchitis type: simple Qualified Code(s): J41.0 - Simple chronic bronchitis Plan: COPD well controlled with Dupixent, Advair and albuterol as needed. Does not use albuterol often only when needed. Continue to follow with Pulmonology. (3) Hypothyroid: Code(s): E03.9 - Hypothyroidism, unspecified Category: Medical Qualifiers: Hypothyroidism type: acquired Qualified Code(s): E03.9 - Hypothyroidism, unspecified Plan: Continue on levothyroxine 88 mcg ordered for repeat blood work. (4) Hypercholesterolemia: Comment: Can not tolerate statins Code(s): E78.00 - Pure hypercholesterolemia, unspecified Category: Medical Plan: Avoid foods that are high in cholesterol such as red meat, fried foods, eggs and baked goods. Triglyceride goal of less than 150 and LDL goal of less than 100. Not currently on medical management reminded about blood work. Can not tolerate statins and declining additional medical management at this time. (5) Type 2 diabetes mellitus with hyperglycemia: Comment: Dr. Barfield Code(s): E11.65 - Type 2 diabetes mellitus with hyperglycemia Category: Medical Qualifiers: Diabetes mellitus senior living insulin use: without senior living use Qualified Code(s): E11.65 - Type 2 diabetes mellitus with hyperglycemia Plan: Decrease the amount of carbohydrates such as pasta, bread, rice, and potatoes and limit the amount of sweets. Although fruits are generally healthy they should be eaten in moderation as they are still high in sugar. Hemoglobin A1c goal of less than 7%. A1c in the clinic today 7.4%. I did discuss with patient this is a pretty big increase from her last visit and would recommend restarting on glimepiride or possible GLP 1 injection. Patient is declining and would like to work on dietary modification prior to addition of new medication. Plan to follow up in [address] Gallardo and did discuss if A1c is not improved or if it remains the same medical management is advised. (6) GERD (gastroesophageal reflux disease): Code(s): K21.9 - Gastro-esophageal reflux disease without esophagitis Category: Medical Qualifiers: Esophagitis presence: esophagitis presence not specified Qualified Code(s): K21.9 - Gastro-esophageal reflux disease without esophagitis Plan: Avoid trigger foods such as citrus, tomato products, soda, caffeine, spicy foods and other foods that may be irritating to your stomach. Avoid laying flat 3-4 hours after eating and elevate the head of the bed 30 degrees to prevent acid from moving into the esophagus. Continue on pantoprazole Plan This note was constructed using voice recognition software. While every effort has been made to ensure accuracy and animation camera operator, still areas may have been included sometimes these areas may affect the content or meeting of the given symptoms. Total time spent caring for the patient today was 20 minutes. This includes time spent before the visit reviewing the chart, time spent during the visit, and time spent after the visit and documentation. Patient was informed and verbally consented to the use of an ambient scribe for clinic note documentation during this visit. Orders: Orders AMB Hemoglobin A1c Today Z13.9 - Encounter for screening, unspecified Medications: Discontinued clotrimazole 1% (Athlete's Foot (clotrimazole)) Discontinued Reason: Patient no longer taking 1 appl topical BID 4 weeks 45 grams 1RF B35.3 - Tinea pedis
--- OUTSIDE RECORDS SUMMARY | 2024-08-26 10:45 | XMS_ITS ---
Author Organization [facility] Address [address] [place] [id number] Care Team Providers Care [employer] Name Role Phone You Gallardo Primary Care Provider Villa Kumar Unavailable [phone] Encounters Encounter Location Date Provider [facility] [address] [id number] 09/08/2023 Villa Nguyen Plan Of Treatment No Information Progress Notes * Aye KINGaDOB:1955 (68 yo F)Acc No.[id number]:09/08/2023 Progress Note Patient:Nora SULLIVAN Provider:?Villa Nguyen DPM :1955???Age:67 Y???Sex:Female D ate:09/08/2023 Address:[address] [place], [place] [id number] Pcp:You Gallardo Subjective: * Chief Complaints: * ??? * Medical History:? Objective: * Vitals:? Assessment: Plan: * Treatment: * Images: * The named appointment provid er may or may not be the originator of this progress note, and it is not deemed complete until electronically signed by the appointment provider. Sign off status: Pending * Provider:?Villa Nguyen DPM Date:?2023 Generated for Evini vito/Fapamelag/eTransmitting on:?08/26/2024 10:45 AM EDT
== END 2024-08-26 10:27 | disposition home or self-care (01) ==
LOC: HO.HMCH 09:39
PROVIDERS: PCP Internal Medicine
DX: E11.65 Type 2 diabetes mellitus with hyperglycemia (principal); E66.9 Obesity, unspecified; J41.0 Simple chronic bronchitis; Z68.37 Body mass index [BMI] 37.0-37.9, adult; E03.9 Hypothyroidism, unspecified; E78.00 Pure hypercholesterolemia, unspecified; K21.9 Gastro-esophageal reflux disease without esophagitis

== ENCOUNTER → 2024-08-26 09:38 | Outpatient (BNVA) | payer MEDICARE, MEDICAID, SELFPAY | PROVIDERS: PCP Internal Medicine | DX: E66.9 Obesity, unspecified (principal); Z68.37 Body mass index [BMI] 37.0-37.9, adult; J41.0 Simple chronic bronchitis; E03.9 Hypothyroidism, unspecified; E78.00 Pure hypercholesterolemia, unspecified; E11.65 Type 2 diabetes mellitus with hyperglycemia; K21.9 Gastro-esophageal reflux disease without esophagitis; Z71.3 Dietary counseling and surveillance | CPT/HCPCS: 83036; 99212 ==

== ENCOUNTER 2024-11-30 14:19 | Outpatient (AMB) | payer MEDICARE, MEDICAID, SELFPAY ==
--- OUTSIDE RECORDS SUMMARY | 2023-09-08 06:00 | XMS_ITS ---
Author Organization [facility] Address [address] [place] [id number] Care Team Providers Care Cleaner Window Name Role Phone You Gallardo Primary Care Provider Unavailabl Villa Rausch Unavailable [phone] Encounters Encounter Location Date [facility] [address] [id number] 09/08/2023 Villa Nguyen Plan Of Treatment No Information Progress Notes * Aye KINGaDOB:1955 (68 yo F)Acc No.[id number]:09/08/2023 Progress Note Patient: Nora ACSTELAN Provider: Harman Nguyen DPM :1955 A ge:67 Y S ex:Female Date:09/08/2023 Address:[address] [place], [place] [id number] Pcp:You Gallardo Subjective: * Chief Complaints: * * Medical History: Objective: * Vitals: Assessment: Plan: * Treatment: * Images: * The named appointment provid er may or may not be the originator of this progress note, and it is not deemed complete until electronically signed by the appointment provider. Sign off status: Pending * Provider: Harman Nguyen DPM Date: 09/08/2023 Generated for Printi ng/Faxing/eTransmitting on: 11/30/2024 04:52 PM EDT
[2024-11-30 14:31] VITALS: BP 132/60; PULSE 100; RESP 18; TEMP 35.8; O2SAT 94; BMI 37.1
--- NOTE | 2024-11-30 14:31 | A.OFFPC_ITS ---
Vital Signs 11/30/24 14:31 Height 5 ft Weight 190 lb BMI 37.1 BP 132/60 Blood Pressure Location Lt brachial Position Sitting Respiration 18 Pulse 100 Pulse Source Pulse Oximeter Temp 96.4 F L Temp Source Temporal Artery Scan Pulse Oximetry (%) 94 Oxygen Delivery Method Room Air Intake Visit Reasons: follow up with Dr Commissioning Manager Required: No Accompanied by: Self / Same As Patient Allergies ciprofloxacin (From CIPRO) Allergy (Severe, Verified 11/30/24 14:34) SWELLING Penicillins (PENICILLINS) Allergy (Severe, Verified 11/30/24 14:34) SWELLING latex (LATEX) Allergy (Intermediate, Verified 11/30/24 14:34) RASH simvastatin (SIMVASTATIN) Allergy (Intermediate, Verified 11/30/24 14:34) HEADACHE aspirin Allergy (Unknown, Verified 11/30/24 14:34) 'tastes blood metformin Allergy (Unknown, Verified 11/30/24 14:34) diarrhea pravastatin (Pravachol) Allergy (Unknown, Verified 11/30/24 14:34) Unknown tacrolimus Allergy (Unknown, Verified 11/30/24 14:34) Rash atorvastatin (From LIPITOR) Adverse Reaction (Intermediate, Verified 11/30/24 14:34) HEADACHE rosuvastatin Adverse Reaction (Intermediate, Verified 11/30/24 14:34) Headache Medication List - Last Reconciled 11/30/24 by You Gallardo MD [large Depends (pull ups) As directed] [3ml syringe with 25g x 1 in needle To administer B12 injection once a week] albuterol sulfate 90 mcg/actuation (Ventolin HFA) 2 puffs inhalation Q4H PRN ammonium lactate 12% topical BID blood sugar diagnostic (FreeStyle Lite Strips) As directed check the BS QD blood-glucose meter (FreeStyle Lite Meter kit) As directed [BODY WIPES As directed] cholecalciferol (vitamin D3) 50 mcg PO DAILY 90 days cyanocobalamin (vitamin B-12) 1,000 mcg subcut QWEEK 12 weeks disposable gloves (Disposable Latex-Free Gloves) large dupilumab (Dupixent) 300 mg subcut Q2W empagliflozin 25 mg PO DAILY evolocumab (Repatha SureClick) 140 mg subcut Q2W ezetimibe (Zetia) 10 mg PO DAILY famotidine 40 mg PO BEDTIME fluticasone propion-salmeterol 115-21 mcg/actuation (Advair HFA) 2 puffs inhalation BID hyoscyamine sulfate (NuLev) 0.125 mg PO BID-QID PRN [incontinence wipes As directed] [Large gloves As directed] levothyroxine 88 mcg PO DAILY loratadine (Allergy Relief (loratadine)) 10 mg PO DAILY Oxygen Home Use 2L at bedtime pantoprazole 40 mg PO QAM sitagliptin phosphate (Januvia) 100 mg PO DAILY Tobacco use date assessed: 11/30/24 Fall risk assessment: 1 Fall in past year Last assessed Fall Risk: 11/30/24 Dental Screening Dental Screen Date: 11/30/24 Did you have a dental visit in the last 12 months?: No Did you have a dental problem in the last 6 months where you did not have access to dental care?: No Was dental information given to patient?: No PFSH Medical History Obesity Dyspnea Diarrhea Osteopenia Obstruction of kidney Obstructive sleep apnea Renal calculus Type 2 diabetes mellitus with hyperglycemia Pulmonary nodule Hypercholesterolemia COPD (chronic obstructive pulmonary disease) Obesity (BMI 30-39.9) Carpal tunnel syndrome Hypothyroid Surgical History S/P cystoscopy with ureteral stent placement History of cataract surgery History of bladder surgery History of tonsillectomy History of tubal ligation History of right oophorectomy Family History Father CVD (cardiovascular disease) Mother Diabetes Hypertension Heart failure Social History Housing: Apartment Alcohol intake: never Patient Tobacco Use Status: Former Tobacco user Tobacco use type: Cigarette Years Smoked: 2005 e-Cigarette/Vaping Use: Never Used Second Hand Smoke Exposure: No service: No Current occupational status: disabled Cognitive needs: No Hearing needs: No Vision needs: No Questionnaire PHQ-9 Over the last 2 weeks, how often have you been bothered by any of the following problems? 1. Little interest or pleasure in doing things: not at all 2. Feeling down, depressed, or hopeless: not at all 3. Trouble falling or staying asleep, or sleeping too much: more than half the days 4. Feeling tired or having little energy: more than half the days 5. Poor appetite or overeating: not at all 6. Feeling bad about yourself - or that you are a failure or have let yourself or your family down: not at all 7. Trouble concentrating on things, such as reading the newspaper or watching television: not at all 8. Moving or speaking so slowly that other people could have noticed. Or the opposite - being so fidgety or restless that you have been moving around a lot more than usual: not at all 9. Thoughts that you would be better off or of hurting yourself in some way: not at all Total score: 4 Depression Screening Interpretation: Positive Depression Screening Done: Yes Source: Developed by Drs. Jeromy Miller, Kristin Vargas, Chato Wild and colleagues, with an educational angelica from [employer]. Thrive Questionnaire Date Thrive assessed: 11/30/24 I am a: Patient What is your living situation today?: I have a steady place to live Within the past 12 months, did the food you bought not last and you didn't have the money to get more?: Never true Within the past 12 months, did you worry whether your food would run out before you got money to buy more?: Sometimes True Do you have trouble paying for medicines?: No Do you have trouble getting transportation to medical appointments?: No Do you have trouble paying your heating and electricity bill?: No Do you have trouble taking care of your child, family member or friend?: No Do you have trouble with day-to-day activities such as bathing, preparing meals, shopping, managing finances, etc.?: Yes Are you currently unemployed and looking for a job?: No Are you interested in more education?: No Please select the resources that you would like help with: None Currently or been in a relationship where the following occur: No concerns reported THRIVE Score: 1 AUDIT C Alcohol Use Questionnaire (AUDIT-C) 1. How often do you have a drink containing alcohol?: Never Total Score: 0 NATIVIDAD-7 AMB Questionnaire NATIVIDAD-7 Date NATIVIDAD - 7 assessed: 11/30/24 Feeling nervous, anxious, or on edge: 2 = More than half the days Not being able to stop or control worryin = More than half the days Worrying too much about different things: 2 = More than half the days Trouble relaxin = More than half the days Being so restless that it is hard to sit still: 0 = Not at all Becoming easily annoyed or irritable: 2 = More than half the days Feeling afraid as if something awful might happen: 2 = More than half the days Total NATIVIDAD-7 score (0-4 normal; 5-9 mild; 10-14 moderate; 15-21 severe): 12 Source: Developed by Drs. Jeromy Miller, Kristin Vargas, Chato Wild and colleagues, with an educational angelica from [employer]. Physical exam (Primary Care) Vital Signs: Last Vital Signs Temp 96.4 F L 11/30/24 14:31 Pulse 100 11/30/24 14:31 Resp 18 11/30/24 14:31 BP 132/60 11/30/24 14:31 Pulse Ox 94 11/30/24 14:31 Oxygen Delivery Method Room Air 11/30/24 14:31 BMI result Body Mass Index 37.1 Tobacco/Smoking Status: Tobacco use Status Tobacco use date assessed 11/30/24 11/30/24 14:39 Patient Tobacco Use Status Former Tobacco user 11/30/24 14:39 Tobacco use type Cigarette 11/30/24 14:39 e-Cigarette/Vaping Use Never Used 11/30/24 14:39 PHQ-9: PHQ-9 Score PHQ-9: Total score 4 11/30/24 14:39 Depression Screening Interpretation: Positive Thrive Assessment: Date of Thrive Assessment Date Thrive assessed 11/30/24 11/30/24 14:39 Currently or been in a relationship where the following occur: No concerns reported Const General: alert; No acute distress Eyes Conjunctivae: conjunctivae normal Resp Auscultation: clear to auscultation bilaterally Cardio Rate: regular rate Rhythm: regular rhythm GI Inspection: Yes normal to inspection Extrem General: Yes normal to inspection and No edema Coding Level of Care Code Est Pt Level 4 (07110) Complex EM visit Add On G2211 Diagnoses Type 2 diabetes mellitus with hyperglycemia, without long-term current use of insulin E11.65 Diabetes mellitus terminal operator insulin use: without intermediate use Hypercholesterolemia E78.00 Acquired hypothyroidism E03.9 Hypothyroidism type: acquired Age related osteoporosis, unspecified pathological fracture presence M81.0 Osteoporosis type: age-related Presence of current pathological fracture: unspecified Obesity (BMI 30-39.9) E66.9 Gastroesophageal reflux disease, unspecified whether esophagitis present K21.9 Esophagitis presence: esophagitis presence not specified Simple chronic bronchitis J41.0 COPD type: chronic bronchitis Chronic bronchitis type: simple Obstructive sleep apnea G47.33 Assessment & Plan Assessment & Plan (1) Type 2 diabetes mellitus with hyperglycemia: Comment: Dr. Barfield Code(s): E11.65 - Type 2 diabetes mellitus with hyperglycemia Category: Medical Qualifiers: Diabetes mellitus terminal operator insulin use: without terminal operator use Qualified Code(s): E11.65 - Type 2 diabetes mellitus with hyperglycemia Plan: Decrease the amount of carbohydrate intake, pasta, bread, rice and potatoes are all sugar and that is aside from all the sweet stuff, remember that fruits are good but they are Sweet also. Hemoglobin A1c goal of less than 7.0. Patient on Jardiance 25 mg once a day (2) Hypercholesterolemia: Comment: Can not tolerate statins Code(s): E78.00 - Pure hypercholesterolemia, unspecified Category: Medical Plan: Avoid fried foods, chicken skin, eggs, butter margarine, pastries and meat. Be it pork or beef they have a lot of cholesterol LDL goal of less than 100 and triglyceride of less than 150 patient is statin intolerant (3) Hypothyroid: Code(s): E03.9 - Hypothyroidism, unspecified Category: Medical Qualifiers: Hypothyroidism type: acquired Qualified Code(s): E03.9 - Hypothyroidism, unspecified Plan: Continue with thyroid medication (4) Osteoporosis: Comment: March 2021 Code(s): M81.0 - Age-related osteoporosis without current pathological fracture Category: Medical Qualifiers: Osteoporosis type: age-related Presence of current pathological fracture: unspecified Qualified Code(s): M81.0 - Age-related osteoporosis without current pathological fracture Plan: Discussed about repeating bone density (5) Obesity (BMI 30-39.9): Code(s): E66.9 - Obesity, unspecified Category: Medical Plan: Diet and exercise (6) GERD (gastroesophageal reflux disease): Code(s): K21.9 - Gastro-esophageal reflux disease without esophagitis Category: Medical Qualifiers: Esophagitis presence: esophagitis presence not specified Qualified Code(s): K21.9 - Gastro-esophageal reflux disease without esophagitis Plan: Avoid the foods that causes that usually spicy foods, tomato products, juices, coffee, soda and foods that your sensitive to. After eating do not lie down, allow 3-4 hours before in lie down. And keep the head of bed above 30 degrees to avoid the acid from going up. (7) COPD (chronic obstructive pulmonary disease): Comment: March 2017 PFT Code(s): J44.9 - Chronic obstructive pulmonary disease, unspecified Category: Medical Qualifiers: COPD type: chronic bronchitis Chronic bronchitis type: simple Qualified Code(s): J41.0 - Simple chronic bronchitis Plan: Patient has albuterol inhaler as needed on Dupixent Advair (8) Obstructive sleep apnea: Comment: Can not tolerate CPAP,Sleep study done 06/18/2023 results showing mild obstruc tive sleep apnea AHI of 9.8 because of hypoxemia advise CPAP therapy with auto PAP mode and pressure setting of 6-20 cm. Code(s): G47.33 - Obstructive sleep apnea (adult) (pediatric) Category: Medical Plan: Discussed about CPAP treatment Plan History of Present Illness The patient is a 68-year-old female presenting for a follow-up visit. She has a history of hypothyroidism, which has been managed with thyroid medication, and her thyroid levels are currently stable. The patient also has hypercholesterolemia, with a total cholesterol of 264 mg/dL, triglycerides at 225 mg/dL, and LDL cholesterol at 178 mg/dL. She is statin intolerant and has been advised to consider non-statin medications such as Zetia or Repatha, pending insurance coverage. Her history of Chronic Obstructive Pulmonary Disease (COPD) is managed with an albuterol inhaler as needed, Dupixent, and Advair. The patient has diabetes mellitus with a fasting blood sugar of 148 mg/dL and a hemoglobin A1c of 7.4%. She is currently on Jardiance 25 mg daily, but her blood sugar remains elevated, and additional medication options are being considered. She reports a history of nephrolithiasis and gastroesophageal reflux disease (GERD), which are being monitored. The patient has obstructive sleep apnea but cannot tolerate CPAP therapy. Preventative care measures include a colonoscopy last performed in December 2022, a bone density screening due in March 2021, and a mammogram up to date as of March 2024. Health Maintenance - Colonoscopy last performed in December 2022 - Bone density screening due March 2021 - Mammogram up to date March 2024 - Dietary recommendations include reducing sugar intake and increasing consumption of leafy vegetables and grains - Exercise recommendations include increasing physical activity to prevent cardiovascular events Social History - Family status: Homeschools grandson and cares for great-granddaughter - Exercise: Limited physical activity, primarily walking with grandson - Nutrition: Consumes a diet of leafy vegetables, grains, and limited sugar intake Review of Systems - Endocrine: Reports hair loss and weight fluctuations - Respiratory: Reports inability to tolerate CPAP for sleep apnea - Neurological: Reports hot flashes Physical Exam Results - Labs: Normal blood count, normal renal function, normal liver function, elevated blood sugar at 148 mg/dL, hemoglobin A1c at 7.4%, total cholesterol at 264 mg/dL, triglycerides at 225 mg/dL, LDL cholesterol at 178 mg/dL, normal thyroid function, trace blood and 3+ glucose in urine Plan Patient was informed and verbally consented to the use of an ambient scribe for clinic note documentation during this visit. 1. Hypothyroidism The patient's hypothyroidism is currently well-managed with thyroid medication, and her thyroid function tests are within normal limits. Continued adherence to her current thyroid medication regimen is recommended. 2. Hypercholesterolemia The patient has hypercholesterolemia with elevated cholesterol levels. She is intolerant to statins, and alternative treatments such as Zetia or Repatha are being considered, pending insurance approval. Dietary modifications to reduce cholesterol intake are advised. 3. Chronic Obstructive Pulmonary Disease (Copd) The patient's COPD is managed with an albuterol inhaler as needed, Dupixent, and Advair. Continued use of these medications is recommended to manage symptoms. 4. Diabetes Mellitus The patient's diabetes mellitus is currently managed with Jardiance 25 mg daily. Her blood sugar remains elevated, and additional medication options such as Januvia are being considered to achieve better glycemic control. 5. Nephrolithiasis The patient has a history of nephrolithiasis, which is being monitored. No specific interventions were discussed during this visit. 6. Gastroesophageal Reflux Disease (Gerd) The patient has GERD, which is being monitored. Dietary modifications to reduce reflux symptoms are recommended. 7. Obstructive Sleep Apnea The patient has obstructive sleep apnea but is unable to tolerate CPAP therapy. Alternative management strategies were not discussed during this visit. Discussion Notes During the visit, we discussed the patient's intolerance to statins and the possibility of using non-statin medications like Zetia or Repatha for hypercholesterolemia, pending insurance approval. We also reviewed her diabetes management, noting the need for additional medication to better control her blood sugar levels. The importance of dietary modifications and increased physical activity to manage her conditions and prevent cardiovascular events was emphasized. Follow-up in three months was recommended to reassess her condition and treatment efficacy. Patient Instructions - Continue taking thyroid medication as prescribed. - Consider dietary changes to reduce cholesterol and sugar intake. - Increase physical activity to help manage weight and improve cardiovascular health. - Follow up in three months for reassessment. Orders: Orders Lipid Panel 3 Months E78.00 - Pure hypercholesterolemia, unspecified Comprehensive Met. Panel 3 Months E78.00 - Pure hypercholesterolemia, unspecified Hemoglobin A1c 3 Months E78.00 - Pure hypercholesterolemia, unspecified Medications: New ezetimibe (Zetia) 10 mg PO DAILY 30 tabs 3RF E78.00 - Pure hypercholesterolemia, unspecified evolocumab (Repatha SureClick) 140 mg subcut Q2W 2 mL 2RF E78.00 - Pure hypercholesterolemia, unspecified sitagliptin phosphate (Januvia) 100 mg PO DAILY 30 tabs 2RF
--- OUTSIDE RECORDS SUMMARY | 2024-11-30 16:53 | XMS_ITS | Patient Health Record ---
Author Organization [facility] Address [address] [place] [address] Care Team Providers Care Telephoner Name Role Phone You Gallardo Primary Care Provider Villa Kumar Unavailable [phone] Allergies Allergen (clinical drug ingredient) Drug/Non Drug Allergy documented on EMR Reaction Allergy Type Onset Date Status Adhesive Unknown Allergy Active Latex Latex Unknown Allergy Active Penicillin Unknown Drug Allergy Active Reason For Referral No Information Medications Medication SIG (Take, Route, Frequency, Duration) Notes Start Date End Date Status Ventolin HFA Active Levothyroxine Sodium 88 MCG TAKE ONE TABLET BY MOUTH EVERY DAY Oral; Duration: 90 Days Active Vitamin D3 50 MCG (1999 UT) TAKE ONE CAPSULE BY MOUTH EVERY DAY Oral; Duration: 90 Days Active Dupixent Active Allergy Relief 10 MG TAKE ONE TABLET BY MOUTH EVERY DAY Oral; Duration: 90 Days Active Senna 8.6 MG TAKE TWO TABLETS BY MOUTH AT BEDTIME FOR CONSTIPATION Oral; Duration: 30 Days Active D2000 Ultra Strength 50 MCG (1999 UT) TAKE ONE CAPSULE BY MOUTH EVERY DAY Oral; Duration: 90 Days Active Bisacodyl EC 5 MG TAKE 2 TABLETS BY MO UTH AT BEDTIME Oral; Duration: 90 Days Active Jardiance 10 MG TAKE ONE TABLET BY M OUTH EVERY DAY Oral; Duration: 30 Days Not-Taking Famotidine 20 MG TAKE ONE TABLET BY M OUTH EVERY DAY AT BEDTIME Oral; Duration: 30 Days Active Ammonium Lactate 12 % APPLY TO AFFECTED AREA S) ON THE BODY THROUGHOUT TWO TIMES A DAY External; Duration: 30 Days Active Extra Depth Orthopedic Shoes (1 Pair) with Customized Heat Molded Multidensity Innersoles (3 Pair) as directed Dx: NIDDM (E11.9), Hammertoe Foot Deformity (M20.41,M20.42), Preulcerative Skin Lesion(s) (L85.1) 01/29/2023 Active Glimepiride 2 MG TAKE ONE TABLET BY M OUTH EVERY DAY Oral; Duration: 90 Days Active Pantoprazole Sodium 20 MG TAKE ONE TABLET BY MOUTH EVERY DAY Oral; Duration: 30 Days Active Symbicort 80-4.5 MCG/ACT INHALE ONE PUFF BY MOUTH TWICE A DAY NEEDED FOR SHORTNESS OF BREATH OR WHEEZING Inhalation; Duration: 60 Days Active Rosuvastatin Calcium 5 MG TAKE ONE TABLET BY MOUTH EVERY DAY Oral; Duration: 90 Days Active Social History Tobacco Use: [...] Problem Acquired hammer toe of right foot ([id number] 5) Other hammer toe(s) (acquired), right foot (M20.41) Active confirmed Problem Acquired hammer toe of left foot ([id number] 3) Other hammer toe(s) (acquired), left foot (M20.42) Active confirmed Problem Type II diabetes mellitus without complication (189871267) Type 2 diabetes mellitus without complication (E11.9) Active confirmed Plan Of Treatment Pending Test Test Name Order Date [id number] NAIL, 6 OR MORE 01/29/2023 [id number] NAIL, 6 OR MORE 04/09/2023 [id number] SKIN LESIONS, OVER 4 01/30/20 23 Insurance Providers Payer Name Payer Address Payer Phone Subscriber Number Group Number Insured Name Patient Relationship to Insured Coverage Start Date Coverage End Date Medicare [employer] [address] [place] [address] [id number] Nora Moy Self - patient is the insured Medical (General) History Medical History History ICD Code Arthritis Psoriasis/eczema thyroid Measles Mumps Chicken pox Kidney disease Lung disease Diabetes Hospitalization History Reason Date(Month/Year) kidney stones 2019
--- OUTSIDE RECORDS SUMMARY | 2024-11-30 16:53 | XMS_ITS | Encounter Summary ---
Author Organization [facility] Address [address] [place] [address] Care Team Providers Care Oiler Bander Name Role Phone You Gallardo MD Primary Care Provider [phone] Encounter Details Date Type Department Care Team (Late st Contact Info) Description 05/26/2024 Lab Requisition [facility] - Main Lab [address] [facility] [place] [id number] Mo Dewey MD [address] [place] [address] Personal history of malignant neoplasm of bladder Social History Tobacco Use Types Packs/Day Years Used Date Smoking Tobacco: Former Smokeless Tobacco: Never Comments Unknown Sex and Gender Information Value Date Recorded Sex Assigned at Not on file Legal Sex Female 10:25 AM EST Gender Identity Not on file Sexual Orientation Not on file documented as of this encounter Plan of Treatment Not on file documented as of this encounter Procedures Procedure Name Priority Date/Time Associated Diagnosis Comments AP OUTSIDE CONSULT Routine 05/19/2024 12 :00 AM EST Personal history of malignant neoplasm of bladder documented in this encounter Results * Anatomic pathology outside consult (05/19/2024 12:00 AM EST) Final Diagnosis Urine, Voided, ([id number]): -NEGATIVE FOR HIGH-GRADE UROTHELIAL CARCINOMA. Results of [employer] fluorescence in situ hybridization (FISH) testing: CEP3: Normal CEP7: Normal CEP17: Normal LSI 9p21: Normal Interpretation: Normal profile Controls stained appropriately. Note: The results are intended as a screening device and should be interpreted in association with other clinical and pathological findings. 06/03/2024 5:31 PM EDT [facility] Clinical Information History of bladder neoplasm (malignant) Z85.51 Urine Cytology/FISH (now) 06/03/2024 5:31 PM EDT [facility] Gross Description A. Urine, Voided, ([id number]): Received one ThinPrep slide for cytology and one ThinPrep slide for [facility] FISH 06/03/2024 5:31 PM EDT [facility] Disclaimer Unless otherwise specified, all tissue is 10% NB formalin fixed and paraffin embedded. Technical pathology services provided by [facility] at [address] [place] [address] [address], [place] [address] (CLIA #[id number]/Anna Marie Aparicio MD, Executive Marketing Assistant) 06/03/2024 5:31 PM EDT [facility] Tissue Urine specimen from urethra / Unknown 05/19/2024 05/26/2024 1:04 PM EST us Mo Dewey MD LAB PATHOLOGY ORDERABLES Fi nal Result [facility] [address] [place] [address], documented in this encounter Visit Diagnoses Diagnosis Personal history of malignant neoplasm of bladder documented in this encounter Care Teams Oiler Bander Relationship Specialty Start Date End Date You Gallardo MD [address] [place] [address] Dr [facility] [address] [facility] [place] [address] PCP - General Internal Medicine 05/30/20 documented as of this encounter
--- OUTSIDE RECORDS SUMMARY | 2024-11-30 16:53 | XMS_ITS | Clinical Summary ---
Author Organization [address] Address [address] [place] [address] Phone Care Team Providers Care Medical And Health Services Manager Name Role Phone You Gallardo MD Primary Care Provider [phone] Surgical History Surgery Date Site/Laterality Comments CATARACT EXTRACTION PROCEDURE: HISTORICAL CATARACT REMOVAL LITHOTRIPSY PROCEDURE: HISTORICAL LITHOTRIPSY Medical History Medical History Date Comments Bladder polyp DX:Bladder polyp Bladder tumor DX:Bladder tumor Family History Medical History Relation Name Comments Eczema Brother 1 allergies Eczema Brother 2 allergies Eczema Father Eczema Sister allergies Relation Name Status Comments Brother 1 Brother 2 Father Mother Sister Social History Tobacco Use Types Packs/Day Years Used Date Smoking Tobacco: Former Smokeless Tobacco: Never Comments Unknown Sex and Gender Information Value Date Recorded Sex Assigned at Not on file Legal Sex Female 10:25 AM EST Gender Identity Not on file Sexual Orientation Not on file Obstetrics History Plan of Treatment Health Maintenance Due Date Last Done Comments Breast Cancer Screening 1956 Diabetes: Annual GFR (Glomer ular Filtration Rate) 1956 Diabetes: Annual Foot Exam 1966 Diabetes: Annual Retina Eye Exam 1966 DTaP,Tdap,and Td Vaccines (1 - Tdap) 12/16/1975 Pneumococcal Vaccine: 50+ Ye ars (1 of 2 - PCV) 12/16/1975 Zoster Vaccines (1 of 2) 2006 RSV Immunization Adult Patie nts (1 - Risk 60-74 years 1-dose series) 2016 Cholesterol Screening (Lipid Panel) 02/19/2022 Colorectal Cancer Screening: Colonoscopy 02/19/2022 Falls Risk Assessment 02/19/2022 Hepatitis C Screening 02/19/2022 Medicare Annual Wellness Visit 02/19/2022 Osteoporosis Screening (Bone Density Screening) 02/19/2022 Social Influencers of Health Screening 02/19/2022 Diabetes: Annual Urine Albumin-Creatinine Ratio (uACR) 03/07/2022 Diabetes: Blood Sugar Contro l Test (HGBA1C) 03/07/2022 Hypertension/CHF/CAD Annual BMP Blood Test 03/07/2022 Depression Screening 03/24/2024 COVID-19 Vaccine ( - 2023-2 5 season) 2024 Influenza Vaccine (#1) 2024 HIB Vaccines Aged Out No longer eligi ble based on patient's age to complete this topic HPV Vaccines Aged Out No longer eligi ble based on patient's age to complete this topic Hepatitis A Vaccines Aged Out No long er eligible based on patient's age to complete this topic Hepatitis B Vaccines Aged Out No long er eligible based on patient's age to complete this topic IPV Vaccines Aged Out No longer eligi ble based on patient's age to complete this topic MMR Vaccines Aged Out No longer eligi ble based on patient's age to complete this topic Meningococcal ACWY Vaccine Aged Out N o longer eligible based on patient's age to complete this topic Meningococcal B Vaccine Aged Out No l onger eligible based on patient's age to complete this topic RSV Immunization Patients Un rosanna 20 months Aged Out No longer eligible b ased on patient's age to complete this topic Varicella Vaccines Aged Out No longer eligible based on patient's age to complete this topic Insurance MEDICARE MEDICAID - [place] Care Teams Medical And Health Services Manager Relationship Specialty Start Date End Date You Gallardo MD [address] [place] [address] [address] [facility] [place] [address] PCP - General Internal Medicine 05/30/20
== END 2024-11-30 15:04 | disposition home or self-care (01) ==
LOC: HO.HMCH 14:19
PROVIDERS: PCP Internal Medicine; Visit Provider Internal Medicine
DX: E11.65 Type 2 diabetes mellitus with hyperglycemia (principal); J41.0 Simple chronic bronchitis; Z68.37 Body mass index [BMI] 37.0-37.9, adult; E66.9 Obesity, unspecified; E78.00 Pure hypercholesterolemia, unspecified; E03.9 Hypothyroidism, unspecified; M81.0 Age-related osteoporosis without current pathological fracture; K21.9 Gastro-esophageal reflux disease without esophagitis; G47.33 Obstructive sleep apnea (adult) (pediatric)

== ENCOUNTER → 2024-11-30 14:19 | Outpatient (BNVA) | payer MEDICARE, MEDICAID, SELFPAY | PROVIDERS: PCP Internal Medicine; Visit Provider Internal Medicine | DX: E11.65 Type 2 diabetes mellitus with hyperglycemia (principal); E78.00 Pure hypercholesterolemia, unspecified; E03.9 Hypothyroidism, unspecified; M81.0 Age-related osteoporosis without current pathological fracture; E66.9 Obesity, unspecified; K21.9 Gastro-esophageal reflux disease without esophagitis; J41.0 Simple chronic bronchitis; G47.33 Obstructive sleep apnea (adult) (pediatric) | CPT/HCPCS: 99212 ==

== ENCOUNTER 2024-12-20 10:05 | Outpatient (AMB) | payer MEDICARE, MEDICAID, SELFPAY ==
--- OUTSIDE RECORDS SUMMARY | 2023-09-08 06:00 | XMS_ITS ---
Author Organization [facility] Address [address] [place] [id number] Care Team Providers Care Power Marketer Name Role Phone You Gallardo Primary Care Provider Unavailabl Villa Rausch Unavailable [phone] Encounters Encounter Location Date Provider [facility] [address] [phone] 09/08/2023 Villa Nguyen Plan Of Treatment No Information Progress Notes * Aye KINGaDOB:1955 (69 yo F)Acc No.[id number]:09/08/2023 Progress Note Patient: Nora CASTELAN Provider: Harman Nguyen DPM :1955 A ge:67 Y S ex:Female Date:09/08/2023 Address:[address] [place], [place] [id number] Pcp:You Gallardo Subjective: * Chief Complaints: * * Medical History: Objective: * Vitals: Assessment: Plan: * Treatment: * Images: * The named appointment provid er may or may not be the originator of this progress note, and it is not deemed complete until electronically signed by the appointment provider. Sign off status: Pending * Provider: Harman Nguyen DPM Date: 09/08/2023 Generated for Evini ng/Faxing/eTransmitting on: 12/20/2024 11:16 AM EDT
[2024-12-20 10:09] VITALS: BP 126/60; PULSE 78; O2SAT 96; BMI 36.6
--- NOTE | 2024-12-20 10:09 | A.OFFVIS_ITS ---
Vital Signs 12/20/24 10:09 Height 5 ft Weight 187 lb 6.287 oz BMI 36.6 BP 126/60 Blood Pressure Location Lt brachial Position Sitting Pulse 78 Pulse Source Pulse Oximeter Pulse Oximetry (%) 96 Oxygen Delivery Method Room Air Intake Visit Reasons: COPD Accompanied by: Self / Same As Patient Allergies ciprofloxacin (From CIPRO) Allergy (Severe, Verified 12/20/24 10:12) SWELLING Penicillins (PENICILLINS) Allergy (Severe, Verified 12/20/24 10:12) SWELLING latex (LATEX) Allergy (Intermediate, Verified 12/20/24 10:12) RASH simvastatin (SIMVASTATIN) Allergy (Intermediate, Verified 12/20/24 10:12) HEADACHE aspirin Allergy (Unknown, Verified 12/20/24 10:12) 'tastes blood metformin Allergy (Unknown, Verified 12/20/24 10:12) diarrhea pravastatin (Pravachol) Allergy (Unknown, Verified 12/20/24 10:12) Unknown tacrolimus Allergy (Unknown, Verified 12/20/24 10:12) Rash atorvastatin (From LIPITOR) Adverse Reaction (Intermediate, Verified 12/20/24 10:12) HEADACHE rosuvastatin Adverse Reaction (Intermediate, Verified 12/20/24 10:12) Headache HPI Comments Details: The patient is a 69 year woman with a known history of COPD and also obstructive sleep apnea. The patient apparently has been having increasing dyspnea on exertion. She has been on Symbicort for some time. She takes it twice a day. She has a rescue inhaler that she rarely needs. 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 The patient has not had any pulmonary function studies to review. On recent imaging study either. She is a former smoker though she stop smoking about 15 years ago therefore no longer qualified for the lung cancer screening program. In regards to the sleep apnea she is not on CPAP therapy. That was many years ago she did tried CPAP at the pressures are too high. She states about 12 years ago. She therefore return the machine. She continues to have daytime drowsiness with an elevated [place] score of 10/24. The patient is reluctant to having sleep study this time. She is agreeable to having overnight oximetry though to make sure that she is not having any significant hypoxia and which become more of a priority. She would like to wait until the school years over to have testing. Therefore have her return in 6 months with PFTs and chest x-ray. If however her overnight oximetry is abnormal I will call her for further assessment. 08/29/2023 the patient is here for pulmonary follow-up visit. The patient overall has been doing okay. Still complaining of dyspnea on exertion. Yamx-qi-aurwzjzh severity. There is a component of deconditioning. The patient did have pulmonary function studies. She does appears to have a veuc-la-cgsgdmso obstruction. This consistent with asthma COPD overlap syndrome. The patient also is undergoing multiple surgical procedures because of frequent kidney stones. She recently had a procedure that that cancel because of preoperative clearance. At this point will have her go for an overnight oximetry to see if she has any evidence of nocturnal hypoxia and therefore may benefit from nocturnal oxygen supplementation. Patient also will continue her respiratory therapy as prescribed. We did talk about pulmonary rehabilitation. Be hard for her to get her from [facility]. She will look into the online pulmonary rehabilitation at this time. When she returns we can again discuss the possibility of in person rehab. Also to note the patient did have a chest x-ray back the winter without any acute disease. 12/29/2023 the patient is here for a pulmonary follow-up visit. Overall she is doing very well. She continues use her respiratory medications as prescribed. She has not had any recent flare-ups. We did look at her last PFTs demonstrating mild COPD. The patient also has been sleeping with the oxygen. The oxygen therapy has been affecting beneficial. She needs to get supplies from her [employer]. She will give him a call. In the meantime the patient also is practicing positional sleep therapy for sleep apnea. She needs to sleep on her prone position left side down. She is aware this. In addition to that the patient does stay active. Her last imaging study we did personally review her x-ray from 06/11/2023 demonstrating no acute disease. The patient otherwise will follow-up in a year's time. If she has any issues prior to that she will call for an earlier assessment. 12/20/2024 the patient is here for pulmonary follow-up visit. The patient overall has been doing well. She continues use the oxygen at nighttime with good effect. She also continues with Symbicort which she uses as prescribed. She also has a rescue inhaler that she typically uses it less than 2 times a w [facility]. She has been having issues with kidney stones. Overall she is doing better from that standpoint. She did have a CT scan of the abdomen back in 2023 which I personally reviewed just to visualize the lung bases demonstrating just the pneumonic cyst on the right hemithorax but otherwise no other abnormalities noted. She has not had any x-rays in more than couple years. Therefore I will give her an x-ray form for her to do it whenever she has time. She will continue with the current respiratory therapy. We also reviewed her vaccines which were all today. The patient follow-up in a year's time she has not issues prior to that she can always call for an earlier assessment. [facility] Medical History Obesity Dyspnea Diarrhea Osteopenia Obstruction of kidney Obstructive sleep apnea Renal calculus Type 2 diabetes mellitus with hyperglycemia Pulmonary nodule Hypercholesterolemia COPD (chronic obstructive pulmonary disease) Obesity (BMI 30-39.9) Carpal tunnel syndrome Hypothyroid Surgical History S/P cystoscopy with ureteral stent placement History of cataract surgery History of bladder surgery History of tonsillectomy History of tubal ligation History of right oophorectomy Family History Father CVD (cardiovascular disease) Mother Diabetes Hypertension Heart failure Social History Housing: Apartment Alcohol intake: never Patient Tobacco Use Status: Former Tobacco user Tobacco use type: Cigarette Years Smoked: 2005 e-Cigarette/Vaping Use: Never Used Second Hand Smoke Exposure: No service: No Current occupational status: disabled Cognitive needs: No Hearing needs: No Vision needs: No Review of Systems Const Reports daytime sleepiness, Reports difficulty sleeping, Reports snoring, Denies weight gain and Denies weight loss ENT Reports no additional complaints Card Reports no additional complaints and Reports dyspnea on exertion Resp Reports dyspnea on exertion, Reports snoring and Denies wheezing GI Denies abdominal pain Reports no additional complaints Musc Reports no additional complaints Skin/Breast Denies rash Neuro Reports no additional complaints Psych Reports no additional complaints Endo Reports no additional complaints Ketan/Lymph Denies lymphadenopathy Aller/Immun Denies wheezing Physical Exam Vital Signs: Last Vital Signs Pulse 78 12/20/24 10:09 BP 126/60 12/20/24 10:09 Pulse Ox 96 12/20/24 10:09 Oxygen Delivery Method Room Air 12/20/24 10:09 BMI result Body Mass Index 36.6 Const General: healthy appearing Orientation/consciousness: patient oriented x3 HEENT Head: Yes normal to inspection and Yes normocephalic Eyes General: appearance normal, both eyes and all related structures Neck Neck: Yes normal visual inspection, Yes full ROM and Yes trachea midline Chest Chest palpation & inspection: normal inspection of the chest Resp Effort & Inspection: normal respiratory effort, able to speak in complete sentences and symmetric chest movement Auscultation: diminished lung sounds Cardio Rate: regular rate Heart sounds: S1 normal heart sound present and S2 normal heart sound present GI Palpation (GI): Soft to palpation Auscultation: normal bowel sounds Skin General skin exam: elasticity normal Neuro General: patient oriented x3 Psych Appearance: grossly normal Mental Status: mental status grossly normal Assessment & Plan Assessment & Plan (1) COPD (chronic obstructive pulmonary disease): Comment: March 2017 PFT Code(s): J44.9 - Chronic obstructive pulmonary disease, unspecified Category: Medical Qualifiers: COPD type: chronic bronchitis Chronic bronchitis type: simple Qualified Code(s): J41.0 - Simple chronic bronchitis (2) Dyspnea: Code(s): R06.00 - Dyspnea, unspecified Category: Medical Qualifiers: Dyspnea type: dyspnea on exertion Qualified Code(s): R06.09 - Other forms of dyspnea (3) Nocturnal hypoxemia: Code(s): G47.34 - Idiopathic sleep related nonobstructive alveolar hypoventilation Category: Medical Plan continue Symbicort JASPREET as needed oxygen at night 2L CXR F/U 8-12 months Orders: Orders XR chest 2V Today G47.34 - Idiopathic sleep related nonobstructive alveolar hypoventilation Coding Level of Care Code Est Pt Level 4 (03287) Complex EM visit Add On G2211 Diagnoses Simple chronic bronchitis J41.0 COPD type: chronic bronchitis Chronic bronchitis type: simple Dyspnea on exertion R06.09 Dyspnea type: dyspnea on exertion Nocturnal hypoxemia G47.34 Time Spent (min) 16
--- OUTSIDE RECORDS SUMMARY | 2024-12-20 11:16 | XMS_ITS | Encounter Summary ---
Author Organization [facility] [address] Address [address] [place] [address] Care Team Providers Care Fox Raiser Name Role Phone You Gallardo MD Primary Care Provider [phone] Encounter Details Date Type Department Care Team (Late st Contact Info) Description 05/26/2024 Lab Requisition [facility] - Main Lab [address] [facility] [place] [phone] Mo Dewey MD [address] [place] [address] Personal history of malignant neoplasm of bladder [...] 12:00 AM EST) Final Diagnosis Urine, Voided, ([id number]): -NEGATIVE FOR HIGH-GRADE UROTHELIAL CARCINOMA. Results of UroVysion fluorescence in situ hybridization (FISH) testing: CEP3: Normal CEP7: Normal CEP17: Normal LSI 9p21: Normal Interpretation: Normal profile Controls stained appropriately. Note: The results are intended as a screening device and should be interpreted in association with other clinical and pathological findings. 06/03/2024 5:31 PM EDT [facility] Clinical Information History of bladder neoplasm (malignant) Z85.51 Urine Cytology/FISH (now) 06/03/2024 5:31 PM EDT [facility] Gross Description A. Urine, Voided, ([id number]): Received one ThinPrep slide for cytology and one ThinPrep slide for UroVysion FISH 06/03/2024 5:31 PM EDT [facility] Disclaimer Unless otherwise specified, all tissue is 10% NB formalin fixed and paraffin embedded. Technical pathology services provided by [facility] at [address] [place] [address] [address], [place] [address] (CLIA #[id number]/Anna Marie Aparicio MD, Chief Compliance Officer) 06/03/2024 5:31 PM EDT [facility] Tissue Urine specimen from urethra / Unknown 05/19/2024 05/26/2024 1:04 PM EST us Mo Dewey MD LAB PATHOLOGY ORDERABLES Fi nal Result [facility] [address] [place] [address], documented in this encounter Visit Diagnoses Diagnosis Personal history of malignant neoplasm of bladder documented in this encounter Care Teams Fox Raiser Relationship Specialty Start Date End Date You Gallardo MD [address] [place] [address] Dr Robert [address] [facility] [place] [address] PCP - General Internal Medicine 05/30/20 documented as of this encounter
--- OUTSIDE RECORDS SUMMARY | 2024-12-20 11:16 | XMS_ITS | Patient Health Record ---
[facility] Address [address] [place] [address] Care Team Providers Care Special Events Planner Name Role Phone You Gallardo Primary Care Provider Villa Kumar Unavailable [phone] Allergies Allergen (clinical drug ingredient) Drug/Non Drug [...] Problem Acquired hammer toe of right foot ([id number] 5) Other hammer toe(s) (acquired), right foot (M20.41) Active confirmed Problem Acquired hammer toe of left foot (290229213310066 3) Other hammer toe(s) (acquired), left foot (M20.42) Active confirmed Problem Type II diabetes mellitus without complication (596424334) Type 2 diabetes mellitus without complication (E11.9) Active confirmed Plan Of Treatment Pending Test Test Name Order Date [id number] NAIL, 6 OR MORE 01/29/2023 [id number] NAIL, 6 OR MORE 04/09/2023 [id number] SKIN LESIONS, OVER 4 01/30/20 23 Insurance Providers Payer Name Payer Address Payer Phone Subscriber Number Group Number Insured Name Patient Relationship to Insured Coverage Start Date Coverage End Date Medicare National [employer] [address] [place] [address] [id number] Nora Moy Self - patient is the insured Medical (General) History Medical History History ICD Code Arthritis Psoriasis/eczema thyroid Measles Mumps Chicken pox Kidney disease Lung disease Diabetes Hospitalization History Reason Date(Month/Year) kidney stones 2019
--- OUTSIDE RECORDS SUMMARY | 2024-12-20 11:17 | XMS_ITS | Clinical Summary ---
Author Organization [address] Address [address] [place] [phone] Phone Care Team Providers Care Blurb Writer Name Role Phone You Gallardo MD Primary Care Provider [phone] Surgical History Surgery Date Site/Laterality Comments CATARACT [...] Insurance MEDICARE [place]ICA[place] - [place] Care Teams Blurb Writer Relationship Specialty Start Date End Date You Gallardo MD [address] [place] [address] [address] [facility] [place] [address] PCP - General Internal Medicine 05/30/20
== END 2024-12-20 10:32 | disposition home or self-care (01) ==
LOC: HO.HPS 10:06
PROVIDERS: PCP Internal Medicine; Visit Provider Hospitalist
DX: J41.0 Simple chronic bronchitis (principal); R06.09 Other forms of dyspnea; G47.34 Idiopathic sleep related nonobstructive alveolar hypoventilation
CPT/HCPCS: 99214; G2211

== ENCOUNTER → 2024-12-20 10:05 | Outpatient (BNVA) | payer MEDICARE, MEDICAID, SELFPAY | PROVIDERS: PCP Internal Medicine; Visit Provider Hospitalist | DX: J41.0 Simple chronic bronchitis (principal); R06.09 Other forms of dyspnea; G47.34 Idiopathic sleep related nonobstructive alveolar hypoventilation | CPT/HCPCS: 99212 ==

== ENCOUNTER 2025-03-05 08:26 | Outpatient (REF) | payer MEDICARE, MEDICAID, SELFPAY ==
--- NOTE | ~2025-03-05 | XR_ITS ---
EXAMINATION: XR CHEST CLINICAL INFORMATION: G47.34 - Idiopathic sleep related nonobstructive alveolar hypoventilation COMPARISON: June 18, 2023 TECHNIQUE: PA and lateral views FINDINGS: Pulmonary reticular pattern. No consolidation, pleural effusion or pneumothorax. No hyperinflation. Cardiomediastinal silhouette size is normal. Calcified plaque thoracic aortic arch. Multilevel spondylosis. Osteopenia versus osteoporosis. Degenerative changes in the shoulders. Probable 5 mm soft tissue calcification right supraspinatus region. XR/XR chest 2V IMPRESSION: Probable chronic interstitial lung disease without acute airspace disease. Questionable calcific tendinosis/tendinopathy, right supraspinatus. Electronically signed by: Mike Sherman MD 03/07/2025 09:45 AM EST
--- OUTSIDE RECORDS SUMMARY | 2025-03-05 08:30 | XMS_ITS | Encounter Summary ---
Author Organization [facility] Address [address] [place] [address] Care Team Providers Care Meteorological Equipment Repairer Name Role Phone You Gallardo MD Primary Care Provider [phone] Encounter Details Date Type Department Care Team (Late st Contact Info) Description 05/26/2024 Lab Requisition [facility] - Main Lab [address] [facility] [place] [phone] Mo Dewey MD [address] [place] [address] Personal history of malignant neoplasm of bladder [...] 12:00 AM EST) Final Diagnosis Urine, Voided, ([id number]): -NEGATIVE FOR HIGH-GRADE UROTHELIAL CARCINOMA. Results of UroVysion fluorescence in situ hybridization (FISH) testing: CEP3: Normal CEP7: Normal CEP17: Normal LSI 9p21: Normal Interpretation: Normal profile Controls stained appropriately. Note: The results are intended as a screening device and should be interpreted in association with other clinical and pathological findings. 06/03/2024 5:31 PM EDT [facility] at 1731 EDT Clinical Information History of bladder neoplasm (malignant) Z85.51 Urine Cytology/FISH (now) 06/03/2024 5:31 PM EDT [facility] Gross Description A. Urine, Voided, ([id number]): Received one ThinPrep slide for cytology and one ThinPrep slide for UroVysion FISH 06/03/2024 5:31 PM EDT [facility] Disclaimer Unless otherwise specified, all tissue is 10% NB formalin fixed and paraffin embedded. Technical pathology services provided by [facility] at [address] [facility] [address], [place] [address] (CLIA #[id number]/Anna Marie Aparicio MD, Regional Sales Manager) 06/03/2024 5:31 PM EDT [facility] Tissue Urine specimen from urethra / Unknown 05/19/2024 05/26/2024 1:04 PM EST us Mo Dewey MD LAB PATHOLOGY ORDERABLES Fi nal Result [facility] [address] [place] [address], documented in this encounter Visit Diagnoses Diagnosis Personal history of malignant neoplasm of bladder documented in this encounter Care Teams Meteorological Equipment Repairer Relationship Specialty Start Date End Date You Gallardo MD [address] [place] [address] Dr Robert [address] [facility] [place] [address] PCP - General Internal Medicine 05/30/20 documented as of this encounter
--- OUTSIDE RECORDS SUMMARY | 2025-03-05 08:30 | XMS_ITS | Clinical Summary ---
Author Organization [address] Address [address] [place] [phone] Phone Care Team Providers Care Roving Changer Name Role Phone You Gallardo MD Primary Care Provider [phone] Surgical History Surgery Date Site/Laterality Comments CATARACT [...] on file Sexual Orientation Not on file Plan of Treatment Health Maintenance Due Date Last Done Comments Breast Cancer Screening 1956 Colorectal Cancer Screening: Colonoscopy 1956 Diabetes: Annual GFR (Glomer ular Filtration Rate) 1956 Diabetes: Annual Foot Exam 1966 Diabetes: Annual Retina Eye Exam 1966 DTaP,Tdap,and Td Vaccines (1 - Tdap) 12/16/1975 Pneumococcal Vaccine: 50+ Ye ars (1 of 2 - PCV) 12/16/1975 RSV Immunization Adult Patie nts (1 - Risk 50-74 years 1-dose series) 2006 Zoster Vaccines (1 of 2) 2006 Cholesterol Screening (Lipid Panel) 02/19/2022 Falls Risk Assessment 02/19/2022 Hepatitis C Screening 02/19/2022 Medicare Annual Wellness Visit 02/19/2022 Osteoporosis Screening (Bone Density Screening) 02/19/2022 Social Influencers of Health Screening 02/19/2022 Diabetes: Annual Urine Albumin-Creatinine Ratio (uACR) 03/07/2022 Diabetes: Blood Sugar Contro l Test (HGBA1C) 03/07/2022 Hypertension/CHF/CAD Annual BMP Blood Test 03/07/2022 Depression Screening 03/24/2024 COVID-19 Vaccine (1 - 2024-2 6 season) 2024 Influenza Vaccine (#1) 2024 HIB [...] Insurance MEDICARE [place]ICA[place] - [place] Care Teams Roving Changer Relationship Specialty Start Date End Date You Gallardo MD [address] [place] [address] [address] [facility] [place] [address] PCP - General Internal Medicine 05/30/20
[2025-03-05 11:12] LABS: Alanine Aminotransferase 17 U/L (0-31); Albumin Level 4.3 g/dL (3.5-5.0); Alkaline Phosphatase 133 U/L (39-117); Anion Gap 11 (12-20); Aspartate Amino Transferase 21 U/L (5-31); Blood Urea Nitrogen 16 mg/dL (9-16); Calcium 10.0 mg/dL (8.4-10.2); Carbon Dioxide 25 mmol/L (22-29); Chloride 110 mmol/L (96-108); Cholesterol 223 mg/dL (<200); Estimated Glomerular Filt Rate > 60; HDL Cholesterol 42 mg/dL (>40); Potassium 4.4 mmol/L (3.3-5.1); Sodium 142 mmol/L (135-145); Total Protein 6.4 g/dL (6.5-8.0); Triglycerides 217 mg/dL (<150)
== END 2025-03-05 08:27 | disposition home or self-care (01) ==
LOC: HO.LAB 08:26
PROVIDERS: Absent Provider Internal Medicine; PCP Internal Medicine; Visit Provider Hospitalist
DX: G47.34 Idiopathic sleep related nonobstructive alveolar hypoventilation (principal); E78.00 Pure hypercholesterolemia, unspecified; Z13.1 Encounter for screening for diabetes mellitus
CPT/HCPCS: 36415; 71046; 80053; 80061; 83036

== ENCOUNTER → 2025-03-05 08:59 | Outpatient (BNV) | payer MEDICARE, MEDICAID, SELFPAY | PROVIDERS: Absent Provider Internal Medicine; PCP Internal Medicine; Visit Provider Radiology Diagnostic Radiology | DX: G47.34 Idiopathic sleep related nonobstructive alveolar hypoventilation (principal) | CPT/HCPCS: 71046 ==

== ENCOUNTER 2025-03-16 13:03 | Outpatient (AMB) | payer MEDICARE, MEDICAID, SELFPAY ==
--- OUTSIDE RECORDS SUMMARY | 2025-03-16 13:06 | XMS_ITS | Clinical Summary ---
Author Organization [address] Address [address] [place] [phone] Phone Care Team Providers Care Administrative Assistant Coordinator Name Role Phone You Gallardo MD Primary Care Provider [phone] Surgical History Surgery Date Site/Laterality Comments CATARACT [...] Insurance MEDICARE [place] - [place] Care Teams Administrative Assistant Coordinator Relationship Specialty Start Date End Date You Gallardo MD [address] [place] [address] [address] [facility] [place] [address] PCP - General Internal Medicine 05/30/20
--- OUTSIDE RECORDS SUMMARY | 2025-03-16 13:06 | XMS_ITS | Patient Health Record ---
Author Organization [facility] Address [address] [place] [address] Care Team Providers Care Rig Operator Name Role Phone You Gallardo Primary Care Provider Villa Kumar Unavailable [phone] Allergies Allergen (clinical drug ingredient) Drug/Non Drug [...] Problem Acquired hammer toe of right foot (548894882986570 5) Other hammer toe(s) (acquired), right foot (M20.41) Active confirmed Problem Acquired hammer toe of left foot (431159271685198 3) Other hammer toe(s) (acquired), left foot (M20.42) Active confirmed Problem Type II diabetes mellitus without complication (703530744) Type 2 diabetes mellitus without complication (E11.9) Active confirmed Plan Of Treatment Pending Test Test Name Order Date [id number] NAIL, 6 OR MORE 01/29/2023 [id number] NAIL, 6 OR MORE 04/09/2023 [id number] SKIN LESIONS, OVER 4 01/30/20 23 Insurance Providers Payer Name Payer Address Payer Phone Subscriber Number Group Number Insured Name Patient Relationship to Insured Coverage Start Date Coverage End Date Medicare National [employer] [address] [place] [address] [id number] Nora Moy Self - patient is the insured Medical (General) History Medical History History ICD Code Arthritis Psoriasis/eczema thyroid Measles Mumps Chicken pox Kidney disease Lung disease Diabetes Hospitalization History Reason Date(Month/Year) kidney stones 2019
--- OUTSIDE RECORDS SUMMARY | 2025-03-16 13:06 | XMS_ITS | Encounter Summary ---
Author Organization [facility] Address [address] [place] [address] Care Team Providers Care Lead Front Desk Agent Name Role Phone You Gallardo MD Primary Care Provider [phone] Encounter Details Date Type Department Care Team (Late st Contact Info) Description 05/26/2024 Lab Requisition [facility] - Main Lab [address] [facility] [place] [id number] Mo [place] MD [address] [place] [address] Personal history of malignant neoplasm of bladder [...] 12:00 AM EST) Final Diagnosis Urine, Voided, ([id number]): -NEGATIVE FOR HIGH-GRADE UROTHELIAL CARCINOMA. Results of UroVysion fluorescence in situ hybridization (FISH) testing: CEP3: Normal CEP7: Normal CEP17: Normal LSI 9p21: Normal Interpretation: Normal profile Controls stained appropriately. Note: The results are intended as a screening device and should be interpreted in association with other clinical and pathological findings. 06/03/2024 5:31 PM EDT [facility] at 1731 EDT Clinical Information History of bladder neoplasm (malignant) Z85.51 Urine Cytology/FISH (now) 06/03/2024 5:31 PM EDT [facility] Gross Description A. Urine, Voided, ([id number]): Received one ThinPrep slide for cytology and one ThinPrep slide for UroVysion FISH 06/03/2024 5:31 PM EDT [facility] Disclaimer Unless otherwise specified, all tissue is 10% NB formalin fixed and paraffin embedded. Technical pathology services provided by [facility] at [address] [facility] [address], [place] [address] (CLIA #[id number]/Anna Marie Aparicio MD, Buckle Gluer) 06/03/2024 5:31 PM EDT [facility] Tissue Urine specimen from urethra / Unknown 05/19/2024 05/26/2024 1:04 PM EST us Mo [place] MD LAB PATHOLOGY ORDERABLES Fi nal Result [facility] [address] [place] [address], documented in this encounter Visit Diagnoses Diagnosis Personal history of malignant neoplasm of bladder documented in this encounter Care Teams Lead Front Desk Agent Relationship Specialty Start Date End Date You Gallardo MD [address] [place] [address] Dr [address] [facility] [place] [address] PCP - General Internal Medicine 05/30/20 documented as of this encounter
--- NOTE | 2025-03-16 13:08 | A.OFFPC_ITS ---
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: No Accompanied by: Self / Same As Patient Allergies ciprofloxacin (From CIPRO) Allergy (Severe, Verified 03/16/25 13:09) SWELLING Penicillins (PENICILLINS) Allergy (Severe, Verified 03/16/25 13:09) SWELLING latex (LATEX) Allergy (Intermediate, Verified 03/16/25 13:09) RASH simvastatin (SIMVASTATIN) Allergy (Intermediate, Verified 03/16/25 13:09) HEADACHE aspirin Allergy (Unknown, Verified 03/16/25 13:09) 'tastes blood metformin Allergy (Unknown, Verified 03/16/25 13:09) diarrhea pravastatin (Pravachol) Allergy (Unknown, Verified 03/16/25 13:09) Unknown tacrolimus Allergy (Unknown, Verified 03/16/25 13:09) Rash atorvastatin (From LIPITOR) Adverse Reaction (Intermediate, Verified 03/16/25 13:09) HEADACHE rosuvastatin Adverse Reaction (Intermediate, Verified 03/16/25 13:09) Headache Medication List - Last Reconciled 03/16/25 by You Gallardo MD [large Depends (pull ups) As directed] [3ml syringe with 25g x 1 in needle To administer B12 injection once a week] albuterol sulfate 90 mcg/actuation (Ventolin HFA) 2 puffs inhalation Q4H PRN ammonium lactate 12% topical BID blood sugar diagnostic (FreeStyle Lite Strips) As directed check the BS QD blood-glucose meter (FreeStyle Lite Meter kit) As directed [BODY WIPES As directed] cholecalciferol (vitamin D3) 50 mcg PO DAILY 90 days cyanocobalamin (vitamin B-12) 1,000 mcg subcut QWEEK 12 weeks disposable gloves (Disposable Latex-Free Gloves) large dupilumab (Dupixent) 300 mg subcut Q2W empagliflozin 25 mg PO DAILY evolocumab (Repatha SureClick) 140 mg subcut Q2W ezetimibe (Zetia) 10 mg PO DAILY famotidine 40 mg PO BEDTIME fluticasone propion-salmeterol 115-21 mcg/actuation (Advair HFA) 2 puffs inhalation BID hyoscyamine sulfate (NuLev) 0.125 mg PO BID-QID PRN [incontinence wipes As directed] [Large gloves As directed] levothyroxine 88 mcg PO DAILY loratadine (Allergy Relief (loratadine)) 10 mg PO DAILY Oxygen Home Use 2L at bedtime pantoprazole 40 mg PO QAM rosuvastatin 5 mg PO DAILY tirzepatide (Mounjaro) 2.5 mg (0.5 mL) subcut QWEEK Tobacco use date assessed: 03/16/25 Fall risk assessment: 1 Fall in past year Last assessed Fall Risk: 03/16/25 Dental Screening Dental Screen Date: 03/16/25 Did you have a dental visit in the last 12 months?: No Did you have a dental problem in the last 6 months where you did not have access to dental care?: No Was dental information given to patient?: No HPI HPI Comments History of Present Illness Details History of Present Illness The patient is a 69-year-old obese female presenting for a follow-up visit. She has a past medical history of hypothyroidism, hypercholesterolemia, diabetes mellitus, gastroesophageal reflux disease (GERD), and obstructive sleep apnea, for which she cannot tolerate CPAP. For her COPD, the patient follows up with pulmonology and was last seen in November. Her regimen includes Symbicort, a short-term beta-agonist, and oxygen at night. She was previously advised to get a chest X-ray. She has a history of osteoporosis, with her last bone density scan performed in March 2021. Her health screenings include a colon test in 2022 and a mammogram in March 2024, both of which are up to date. Review of blood work from March 05 shows normal electrolytes and renal function. Her hemoglobin A1c in February was 6.7, and her liver function tests were normal. Her LDL cholesterol was elevated at 130 mg/dL. Health Maintenance Diet and exercise were discussed as part of the management plan. Social History - Diet and exercise were discussed. Results - Labs from March 05: Electrolytes and renal function were normal. - Hemoglobin A1c (February): 6.7. - Liver enzymes: Normal. - LDL cholesterol: 130 mg/dL. - Bone density scan: Last performed in [facility]20[facility]. - Colon test: Up to date as of 2022. - Mammogram: Up to date as of April 12. [facility] Medical History Obesity Dyspnea Diarrhea Osteopenia Obstruction of kidney Obstructive sleep apnea Renal calculus Type 2 diabetes mellitus with hyperglycemia Pulmonary nodule Hypercholesterolemia COPD (chronic obstructive pulmonary disease) Obesity (BMI 30-39.9) Carpal tunnel syndrome Hypothyroid Surgical History S/P cystoscopy with ureteral stent placement History of cataract surgery History of bladder surgery History of tonsillectomy History of tubal ligation History of right oophorectomy Family History Father CVD (cardiovascular disease) Mother Diabetes Hypertension Heart failure Social History Housing: Apartment Alcohol intake: never Patient Tobacco Use Status: Former Tobacco user Tobacco use type: Cigarette Years Smoked: 2005 e-Cigarette/Vaping Use: Never Used Second Hand Smoke Exposure: No service: No Current occupational status: disabled Cognitive needs: No Hearing needs: No Vision needs: No Questionnaire Thrive Questionnaire Date Thrive assessed: 03/16/25 I am a: Patient What is your living situation today?: I have a steady place to live Within the past 12 months, did the food you bought not last and you didn't have the money to get more?: Never true Within the past 12 months, did you worry whether your food would run out before you got money to buy more?: Sometimes True Do you have trouble paying for medicines?: No Do you have trouble getting transportation to medical appointments?: No Do you have trouble paying your heating and electricity bill?: No Do you have trouble taking care of your child, family member or friend?: No Do you have trouble with day-to-day activities such as bathing, preparing meals, shopping, managing finances, etc.?: Yes Are you currently unemployed and looking for a job?: No Are you interested in more education?: No Please select the resources that you would like help with: None Currently or been in a relationship where the following occur: No concerns reported THRIVE Score: 1 AUDIT C Alcohol Use Questionnaire (AUDIT-C) 3. How often do you have six or more drinks on one occasion?: Never Total Score: 0 NATIVIDAD-7 AMB Questionnaire NATIVIDAD-7 Date NATIVIDAD - 7 assessed: 11/30/24 Source: Developed by Drs. Jeromy Miller, Kristin Vargas, Chato sigala nd colleagues, with an educational angelica from [email or web address]. Review of Systems Narrative Review of Systems Physical exam (Primary Care) Vital Signs: Last Vital Signs Pulse 86 03/16/25 13:09 Resp 18 03/16/25 13:09 BP 124/58 L 03/16/25 13:09 Pulse Ox 96 03/16/25 13:09 Oxygen Delivery Method Room Air 03/16/25 13:09 BMI result Body Mass Index 36.6 Tobacco/Smoking Status: Tobacco use Status Tobacco use date assessed 03/16/25 03/16/25 13:13 Patient Tobacco Use Status Former Tobacco user 03/16/25 13:13 Tobacco use type Cigarette 03/16/25 13:13 e-Cigarette/Vaping Use Never Used 03/16/25 13:13 Thrive Assessment: Date of Thrive Assessment Date Thrive assessed 03/16/25 03/16/25 13:13 Currently or been in a relationship where the following occur: No concerns reported Narrative Physical Exam Const General: alert; No acute distress Eyes Conjunctivae: conjunctivae normal Resp Auscultation: clear to auscultation bilaterally Cardio Rate: regular rate Rhythm: regular rhythm GI Inspection: Yes normal to inspection Extrem General: Yes normal to inspection and No edema Coding Level of Care Code Est Pt Level 4 (11797) Add On Problem Visit Only Diagnoses Type 2 diabetes mellitus with hyperglycemia, without long-term current use of insulin E11.65 Diabetes mellitus 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 insulin use: without residential use Hypercholesterolemia E78.00 Acquired hypothyroidism E03.9 Hypothyroidism type: acquired Age related osteoporosis, unspecified pathological fracture presence M81.0 Osteoporosis type: age-related Presence of current pathological fracture: unspecified Obesity (BMI 30-39.9) E66.9 Gastroesophageal reflux disease, unspecified whether esophagitis present K21.9 Esophagitis presence: esophagitis presence not specified Simple chronic bronchitis J41.0 COPD type: chronic bronchitis Chronic bronchitis type: simple Obstructive sleep apnea G47.33 Assessment & Plan Assessment & Plan (1) Type 2 diabetes mellitus with hyperglycemia: Comment: Dr. Barfield Code(s): E11.65 - Type 2 diabetes mellitus with hyperglycemia Category: Medical Qualifiers: Diabetes mellitus 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 insulin use: without residential use Qualified Code(s): E11.65 - Type 2 diabetes mellitus with hyperglycemia Plan: DECREASE THE AMOUNT OF CARBOHYDRATE INTAKE, PASTA, BREAD, RICE AND POTATOES ARE ALL SUGAR AND THAT IS ASIDE FROM ALL THE SWEET STUFF, REMEMBER THAT FRUITS ARE GOOD BUT THEY ARE SWEET ALSO. Hemoglobin A1c goal of less than 7.0. Patient is on Jardiance 25 mg once a day Januvia 100 mg once a day (2) Hypercholesterolemia: Comment: Can not tolerate statins Code(s): E78.00 - Pure hypercholesterolemia, unspecified Category: Medical Plan: Avoid fried foods, chicken skin, eggs, butter margarine, pastries and meat. Be it pork or beef they have a lot of cholesterol LDL goal of less than 100 and triglyceride of less than 150 patient is on Zetia and has been placed on Repatha. Concern that the blood work is showing very high LDL (3) Hypothyroid: Code(s): E03.9 - Hypothyroidism, unspecified Category: Medical Qualifiers: Hypothyroidism type: acquired Qualified Code(s): E03.9 - Hypothyroidism, unspecified Plan: Continue with thyroid medication will need thyroid testing (4) Osteoporosis: Comment: March 2021 Code(s): M81.0 - Age-related osteoporosis without current pathological fracture Category: Medical Qualifiers: Osteoporosis type: age-related Presence of current pathological fracture: unspecified Qualified Code(s): M81.0 - Age-related osteoporosis without current pathological fracture Plan: Patient is due for bone density (5) Obesity (BMI 30-39.9): Code(s): E66.9 - Obesity, unspecified Category: Medical Plan: Diet and exercise (6) GERD (gastroesophageal reflux disease): Code(s): K21.9 - Gastro-esophageal reflux disease without esophagitis Category: Medical Qualifiers: Esophagitis presence: esophagitis presence not specified Qualified Code(s): K21.9 - Gastro-esophageal reflux disease without esophagitis Plan: Avoid the foods that causes that usually spicy foods, tomato products, juices, coffee, soda and foods that your sensitive to. After eating do not lie down, allow 3-4 hours before in lie down. And keep the head of bed above 30 degrees to avoid the acid from going up. (7) COPD (chronic obstructive pulmonary disease): Comment: March 2017 PFT Code(s): J44.9 - Chronic obstructive pulmonary disease, unspecified Category: Medical Qualifiers: COPD type: chronic bronchitis Chronic bronchitis type: simple Qualified Code(s): J41.0 - Simple chronic bronchitis Plan: Patient follows up with Pulmonary on Advair and albuterol inhaler as needed (8) Obstructive sleep apnea: Comment: Can not tolerate CPAP,Sleep study done 06/18/2023 results showing mild obstruc tive sleep apnea AHI of 9.8 because of hypoxemia advise CPAP therapy with auto PAP mode and pressure setting of 6-20 cm. Code(s): G47.33 - Obstructive sleep apnea (adult) (pediatric) Category: Medical Plan: Oxygen at nighttime. Patient can not tolerate CPAP Plan Plan Patient was informed and verbally consented to the use of an ambient scribe for clinic note documentation during this visit. 1. Diabetes Mellitus The goal is to maintain a hemoglobin A1c of less than 7.0%. The patient will continue Jardiance 25 mg once a day and Januvia 100 mg once a day. 2. Hypercholesterolemia The goal is to achieve an LDL cholesterol level of less than 100 mg/dL and a triglyceride level of less than 150 mg/dL. Given the recent high LDL level, the patient will continue on ezetimibe (Zetia) and has been started on Repatha. 3. Hypothyroidism The patient will continue her current thyroid medication. She will require thyroid function testing. 4. Osteoporosis The patient is due for a repeat bone density scan. 5. Gastroesophageal Reflux Disease (Gerd) A plan for managing reflux was considered. 6. Chronic Obstructive Pulmonary Disease (Copd) The patient will continue to follow up with her youth development specialist. She will continue using Advair, an albuterol inhaler as needed, and oxygen at nighttime. 7. Obstructive Sleep Apnea It is noted that the patient cannot tolerate CPAP therapy. Discussion Notes I have reviewed the patient's chronic conditions. For her diabetes, we will aim for an HbA1c of less than 7.0% and continue her current regimen of Jardiance and Januvia. Regarding her hypercholesterolemia, I noted her recent LDL was high at 130 mg/dL; therefore, we will continue ezetimibe and have also added Repatha to reach her goal of an LDL less than 100 mg/dL. We will continue her thyroid medication and order thyroid testing. I informed her that she is due for a bone density scan for osteoporosis monitoring. She will continue to follow with pulmonology for COPD management, using her prescribed inhalers and nighttime oxygen. The importance of diet and exercise was also emphasized. Patient Instructions - Continue taking your current medications for diabetes, including Jardiance 25 mg and Januvia 100 mg once daily. - Continue your cholesterol medications, including the newly prescribed Repatha, as your recent cholesterol level was high. - Continue taking your thyroid medication. We will need to arrange for blood tests to check your thyroid levels. - You are due for a bone density scan. Please make an appointment for this test. - Keep following up with your lung doctor for your COPD. Continue to use your Advair and albuterol inhalers as prescribed, and use oxygen at night. - Remember to focus on a healthy diet and regular exercise. - Your preventative screenings, including your colon test and mammogram, are up to date. Orders: Orders Comprehensive Met. Panel 3 Months E11.65 - Type 2 diabetes mellitus with hyperglycemia Complete Blood Count Auto Diff 3 Months E11.65 - Type 2 diabetes mellitus with hyperglycemia Creatinine Urine 3 Months E11.65 - Type 2 diabetes mellitus with hyperglycemia Lipid Panel 3 Months E11.65 - Type 2 diabetes mellitus with hyperglycemia, E78.00 - Pure hypercholesterolemia, unspecified Vitamin B12 and Folate 3 Months E11.65 - Type 2 diabetes mellitus with hyperglycemia Microalbumin, Random (w Creat) 3 Months E11.65 - Type 2 diabetes mellitus with hyperglycemia Thyroid Stimulating Hormone 3 Months E11.65 - Type 2 diabetes mellitus with hyperglycemia Hemoglobin A1c 3 Months E11.65 - Type 2 diabetes mellitus with hyperglycemia Free T4 (Free Thyroxine) 3 Months E11.65 - Type 2 diabetes mellitus with hyperglycemia Medications: New tirzepatide (Mounjaro) for 4 weeks 2.5 mg (0.5 mL) subcut QWEEK 6 mL 1RF E11.65 - Type 2 diabetes mellitus with hyperglycemia, E78.00 - Pure hypercholesterolemia, unspecified rosuvastatin 5 mg PO DAILY 90 tabs 3RF E78.00 - Pure hypercholesterolemia, unspecified Refilled hyoscyamine sulfate (NuLev) 0.125 mg PO BID-QID PRN 20 tabs 0RF dyspepsia E78.00 - Pure hypercholesterolemia, unspecified Discontinued sitagliptin phosphate (Maruv) Discontinued Reason: Doctor's Order 100 mg PO DAILY 30 tabs 2RF
[2025-03-16 13:09] VITALS: BP 124/58; PULSE 86; RESP 18; O2SAT 96; BMI 36.6
== END 2025-03-16 13:50 | disposition home or self-care (01) ==
PROVIDERS: PCP Internal Medicine; Visit Provider Internal Medicine
DX: E11.65 Type 2 diabetes mellitus with hyperglycemia (principal); E78.00 Pure hypercholesterolemia, unspecified; E03.9 Hypothyroidism, unspecified; M81.0 Age-related osteoporosis without current pathological fracture; E66.9 Obesity, unspecified; K21.9 Gastro-esophageal reflux disease without esophagitis; J41.0 Simple chronic bronchitis; G47.33 Obstructive sleep apnea (adult) (pediatric)

== ENCOUNTER → 2025-03-16 13:03 | Outpatient (BNVA) | payer MEDICARE, MEDICAID, SELFPAY | PROVIDERS: PCP Internal Medicine; Visit Provider Internal Medicine | DX: E11.65 Type 2 diabetes mellitus with hyperglycemia (principal); E78.00 Pure hypercholesterolemia, unspecified; E03.9 Hypothyroidism, unspecified; M81.0 Age-related osteoporosis without current pathological fracture; E66.9 Obesity, unspecified; K21.9 Gastro-esophageal reflux disease without esophagitis; J41.0 Simple chronic bronchitis; G47.33 Obstructive sleep apnea (adult) (pediatric); Z79.899 Other long term (current) drug therapy | CPT/HCPCS: 99212 ==